=== PATIENT | female | born 1935 ===

== ENCOUNTER 2019-07-26 17:52 | Inpatient (IN) | payer MEDICARE, BC ==
[~2019-07-26] VITALS: Ht 165.1 cm; Wt 63.0 kg
[2019-07-26] MEDS ORDERED: MIRT15TA90 PO (18:32)
[2019-07-26] MEDS ORDERED: FOLI0.8C PO (18:32)
[2019-07-26] MEDS ORDERED: THIA100T57 PO (18:32)
[2019-07-26] MEDS ORDERED: FLUO10CA13 PO (18:32)
[2019-07-26] MEDS ORDERED: AMLO10TA8 PO (18:32)
[2019-07-26] MEDS ORDERED: MULT-237 PO (18:32)
[2019-07-26] MEDS ORDERED: ARIP2TAB35 PO (18:32)
[2019-07-26] MEDS ORDERED: ACET325T21 PO (18:32)
[2019-07-26] MEDS ORDERED: ESCITALOPRAM OX10 MG PO (18:32)
[2019-07-26] MEDS ORDERED: DOCU100C28 PO (18:32)
[2019-07-26] MEDS ORDERED: LOSA100T14 PO (18:32)
[2019-07-26] MEDS ORDERED: CLON0.5T4 PO (18:32)
[2019-07-26 19:35] VITALS: BP 149/60
--- NOTE | 2019-07-26 20:00 | NUR ---
Admission Note with Justification for Admission to [facility] Patient admitted to [facility] for protective oversight for emergency stabilization of acute psychiatric crisis. Pt admitted from: Hospital ER/ [facility] Mode of arrival: EMS Accompanied By: Secure Transport Precipitating behaviors that initiated intake and admission:barricaded self in room, threatening to hang self, paranoid, hallucinations Description of failure of out patient attempts at stabilization in previous setting list behavior and medication trials:med changes Behaviors and assessment findings upon admission: A/O x4, very tearful, denies SI, hyperverbal Plan: Admit for protective oversight for adjustment and stabilization of medications, behaviors and mood. Intense treatment regimen including groups, medication adjustments, therapy, consistent regimen for ADL's, self care, and sleep hygiene. Daily monitoring by Inpatient staff, Psychiatry, and Medical Physician.
[2019-07-26] MEDS ORDERED: ACETAMINOPHEN 325 MG TABLET PO PRN ×2 (21:30→23:30)
--- NOTE | 2019-07-26 21:38 | HP ---
ADMIT DATE: 07/26/2019 IDENTIFYING DATA: The patient is an 83-year-old female referred to us from the Emergency Room at [facility] where she presented from [facility] on account of worsening paranoia, hallucinations and after the patient had barricaded herself in her room and threatened to hang herself. She has been depressed, appears hopeless, helpless, worthless, paranoid, delusional, extremely anxious. She has failed outpatient psychiatric interventions resulting in this referral. We had been contacted from the Emergency Room the day previously as well, but at that time, she had not made threats of self harm even though she was noted to be somewhat psychotic and did not meet criteria for our service at that time. Then, she was returned back to the care home, made the threats of suicide of hanging herself and then went to the ER and then referred to us for psychiatric stabilization. CHIEF COMPLAINT: "I can't stop crying. My birthday is tomorrow. I have been to her for 64 years. He worked for [employer]. He can take care of me. We have 1 son and 1 daughter. My son is a zavaleta, but he is getting along in years and he has his own children and grandchildren and he can't help take care of me. I don't know what to do. HISTORY OF PRESENT ILLNESS: The patient has a history of worsening symptoms of depression, feeling hopeless, helpless, worthless, somewhat paranoid with marked mood lability, anxiety, sleep and appetite changes, worsening paranoia, hallucinations. She made the suicidal statements noted above. She does have a history of mood swings, but no clear past diagnosis of bipolar disorder. PAST PSYCHIATRIC HISTORY: Positive for depression, anxiety, paranoia. MEDICAL HISTORY: Recent urinary tract infection, hypertension, mitral valve stenosis, pacemaker in place, asthma. ALLERGIES: SIMVASTATIN. CURRENT PSYCHOTROPICS: MRAD was reviewed and we have added Zyprexa p.r.n. DIET: Regular. FAMILY HISTORY: Noncontributory. SOCIAL HISTORY: The patient lives at home with her . 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 No alcohol or drug abuse, physical, sexual or elder abuse history is noted. Not known to be a perpetrator. REACTION TO HOSPITALIZATION: The patient accepting of it. ASSETS: Supportive family, stable living at the nursing facility. MENTAL STATUS EXAMINATION: The patient was seen individually at length in the evening of 07/26/2019. She is alert, oriented, reasonably. She is anxious, restless in a wheelchair, constantly moving. Speech coherent, rapid. Abstraction fair, computation impaired, language function intact, attention span short. Mood and affect remains quite labile. She was profusely tearful at times. Denies active suicidal ideation at this time, reasonably oriented. LABORATORY DATA: Reviewed. IMPRESSION: Major depressive disorder, recurrent with psychotic features; anxiety disorder, unspecified; impulse control disorder, status post urinary tract infection. Rest as above. PLAN: Admit to Geropsychiatry Unit at [facility]. I will see the patient daily individually from a psychiatric standpoint. Medical followup per Dr. Lyon. Continue the patient on her current psychotropics. Observe baseline, then make further changes as clinically indicated. Estimated length of stay 10-12 days. DISPOSITION: Plans back to care home in stable condition. ALEKSANDER REESE MD DR: ANUP/esther JOB#: [id number] / [id number]
[2019-07-26] MEDS: clonazePAM 1 MG TABLET PO SCH (21:54)
[2019-07-26] MEDS: MIRTAZAPINE ODT 15 MG TAB.RAPDIS. PO SCH (21:54)
[2019-07-26] MEDS ORDERED: MAGNESIUM HYDROXIDE 2,400 MG/30 ML ORAL.SUSP. PO PRN (23:30)
[2019-07-26] MEDS ORDERED: MAG HYDROX/AL HYDROX/SIMETH 30 ML ORAL.SUSP PO PRN (23:30)
[2019-07-26] MEDS ORDERED: METHYL SALICYLATE/MENTHOL TOPICAL OINTMENT 57GM TUBE. TP PRN (23:30)
[2019-07-27 06:18] VITALS: BP 179/84
[2019-07-27 07:25] LABS: BASO # 0.1 x10^3/uL (0.0-0.2); BASO % 1 % (0-3); EOS # 0.2 x10^3/uL (0.0-0.7); EOS % 3 % (0-3); HEMATOCRIT 47.6 % (36.0-47.0); HEMOGLOBIN 15.6 g/dL (12.0-15.5); LYMPH # 3.8 x10^3/uL (1.0-4.8); LYMPH % 47 % (24-48); MEAN CORPUSCULAR HEMOGLOBIN 30 pg (25-35); MEAN CORPUSCULAR HGB CONC 33 g/dL (31-37); MEAN CORPUSCULAR VOLUME 93 fL (79-100); MONO # 0.5 x10^3/uL (0.0-1.1); MONO % 6 % (0-9); NEUT # 3.5 x10^3uL (1.8-7.7); NEUT % 43 % (31-73); PLATELET COUNT 225 x10^3/uL (140-400); RED BLOOD COUNT 5.14 x10^6/uL (3.50-5.40); RED CELL DISTRIBUTION WIDTH 13.9 % (11.5-14.5)
[2019-07-27 07:40] LABS: ALBUMIN 3.2 g/dL (3.4-5.0); ALBUMIN/GLOBULIN RATIO 0.9 (1.0-1.7); CREATININE 0.9 mg/dL (0.6-1.0); GFR 59.4; MAGNESIUM 1.8 mg/dL (1.8-2.4); POTASSIUM 3.4 mmol/L (3.5-5.1); TOTAL BILIRUBIN 0.5 mg/dL (0.2-1.0); TOTAL PROTEIN 6.8 g/dL (6.4-8.2)
[2019-07-27] MEDS: FLUoxetine HCL 10 MG CAPSULE PO SCH (08:26)
[2019-07-27] MEDS: clonazePAM 1 MG TABLET PO SCH ×3 (08:26→20:07)
[2019-07-27] MEDS: CITALOPRAM 20 MG TABLET. PO SCH (08:27)
[2019-07-27] MEDS: amLODIPine BESYLATE 10 MG TABLET PO SCH (08:27)
[2019-07-27] MEDS: LOSARTAN 50 MG TABLET. PO SCH (08:27)
[2019-07-27] MEDS: ARIPiprazole 2 MG TABLET PO SCH (08:27)
[2019-07-27] MEDS: FOLIC ACID 1 MG TABLET PO SCH (08:28)
[2019-07-27] MEDS: THIAMINE 100 MG TABLET. PO SCH (08:28)
[2019-07-27] MEDS: MULTIVITAMIN with MINERAL TABLET. PO SCH (08:29)
[2019-07-27] MEDS: DOCUSATE SODIUM 100 MG CAPSULE PO SCH ×2 (08:29→20:07)
[2019-07-27] MEDS ORDERED: clonazePAM 1 MG TABLET PO SCH (09:00)
[2019-07-27 12:10] LABS: THYROXINE 6.4 ug/dL (4.5-12.0)
--- NOTE | 2019-07-27 12:27 | NUR ---
Patient is anxious upon medication administration. Patient states she feels like she is rushed to go to the bathroom and that upsets her. Patient is resistive with medications, but compliant. Patient is making some what spastic movements with her arms during this interaction. Patient is not eating well at the noon meal and seems preoccupied. Will continue to monitor.
[2019-07-27 13:53] LABS: AMORPHOUS SEDIMENT,UR PRESENT /HPF; BACTERIA,URINE FEW /HPF (0-FEW); BILIRUBIN,URINE NEG (NEG); CLARITY,URINE TURBID; COLOR,URINE YELLOW; GLUCOSE,URINE NEG (NEG); NITRITE,URINE NEG (NEG); RBC,URINE 0 /HPF (0-2); SQUAMOUS EPITHELIAL CELL,UR OCC /LPF; UROBILINOGEN,URINE 0.2 mg/dL (0.2 mg/dL)
[2019-07-27 16:15] VITALS: BP 114/62
[2019-07-27] MEDS: MIRTAZAPINE ODT 15 MG TAB.RAPDIS. PO SCH (20:07)
[2019-07-27] MEDS ORDERED: MIRTAZAPINE ODT 15 MG TAB.RAPDIS. PO SCH (21:00)
--- NOTE | 2019-07-27 21:58 | PDOC ---
Exam Note: Jay Note: This is a late entry for DOS 07/26/2019. Please also refer to the separate dictated note~for this date of service dictated separately.~Patient seen individually. Discussed the patient with Nursing staff reviewed the chart.~Reviewed interim history and current functioning. Reviewed vital signs,~Labs/ Radiology~and current medications noted below. Continue current treatment with the changes noted in the dictated addendum note Assessment: Vital Signs/I&O: Vital Signs Date Time Temp Pulse Resp B/P (MAP) Pulse Ox O2 Delivery O2 Flow Rate FiO2 07/27/19 16:15 97.2 64 18 114/62 (79) 96 I & O 07/26/19 07/26/19 07/27/19 15:00 23:00 07:00 Intake Total 240 ml Balance 240 ml Labs: Laboratory Tests Test 07/27/19 06:58 07/27/19 13:00 White Blood Count 8.0 x10^3/uL (4.0-11.0) Red Blood Count 5.14 x10^6/uL (3.50-5.40) Hemoglobin 15.6 g/dL (12.0-15.5) H Hematocrit 47.6 % (36.0-47.0) H Mean Corpuscular Volume 93 fL (79-100) Mean Corpuscular Hemoglobin 30 pg (25-35) Mean Corpuscular Hemoglobin Concent 33 g/dL (31-37) Red Cell Distribution Width 13.9 % (11.5-14.5) Platelet Count 225 x10^3/uL (140-400) Neutrophils (%) (Auto) 43 % (31-73) Lymphocytes (%) (Auto) 47 % (24-48) Monocytes (%) (Auto) 6 % (0-9) Eosinophils (%) (Auto) 3 % (0-3) Basophils (%) (Auto) 1 % (0-3) Neutrophils # (Auto) 3.5 x10^3uL (1.8-7.7) Lymphocytes # (Auto) 3.8 x10^3/uL (1.0-4.8) Monocytes # (Auto) 0.5 x10^3/uL (0.0-1.1) Eosinophils # (Auto) 0.2 x10^3/uL (0.0-0.7) Basophils # (Auto) 0.1 x10^3/uL (0.0-0.2) Sodium Level 142 mmol/L (136-145) Potassium Level 3.4 mmol/L (3.5-5.1) L Chloride Level 106 mmol/L (98-107) Carbon Dioxide Level 25 mmol/L (21-32) Anion Gap 11 (6-14) Blood Urea Nitrogen 13 mg/dL (7-20) Creatinine 0.9 mg/dL (0.6-1.0) Estimated GFR (Cockcroft-Gault) 59.4 BUN/Creatinine Ratio 14 (6-20) Glucose Level 94 mg/dL (70-99) Calcium Level 9.0 mg/dL (8.5-10.1) Magnesium Level 1.8 mg/dL (1.8-2.4) Iron Level 79 ug/dL (50-170) Total Iron Binding Capacity 296 ug/dL (250-450) Iron Saturation 27 % (15-34) Total Bilirubin 0.5 mg/dL (0.2-1.0) Aspartate Amino Transferase (AST) 27 U/L (15-37) Alanine Aminotransferase (ALT) 22 U/L (14-59) Alkaline Phosphatase 82 U/L (46-116) Total Protein 6.8 g/dL (6.4-8.2) Albumin 3.2 g/dL (3.4-5.0) L Albumin/Globulin Ratio 0.9 (1.0-1.7) L Triglycerides Level 52 mg/dL (0-150) Cholesterol Level 154 mg/dL (0-200) LDL Cholesterol, Calculated 83 mg/dL (0-100) VLDL Cholesterol, Calculated 10 mg/dL (0-40) Non-HDL Cholesterol Calculated 93 mg/dL (0-129) HDL Cholesterol 61 mg/dL (40-60) H Cholesterol/HDL Ratio 2.0 Thyroxine (T4) 6.4 ug/dL (4.5-12.0) Total Triiodothyronine (TT3) 108 ng/dL (71-180) Urine Collection Type Unknown Urine Color Yellow Urine Clarity Turbid Urine pH 5.5 Urine Specific [place] 1.020 Urine Protein Neg (NEG-TRACE) Urine Glucose (UA) Neg mg/dL (NEG) Urine Ketones (Stick) Neg mg/dL (NEG) Urine Blood Trace (NEG) Urine Nitrite Neg (NEG) Urine Bilirubin Neg (NEG) Urine Urobilinogen Dipstick 0.2 mg/dL (0.2 mg/dL) Urine Leukocyte Esterase Mod (NEG) Urine RBC 0 /HPF (0-2) Urine WBC 11-20 /HPF (0-4) Urine Squamous Epithelial Cells Occ /LPF Urine Transitional Epithelial Cells Occ /LPF Urine Amorphous Sediment Present /HPF Urine Bacteria Few /HPF (0-FEW) Urine Mucus Mod /LPF Current Medications: Meds: Current Medications Medications (Trade) Dose Ordered Sig/Gian Route PRN Reason Start Time Stop Time Status Last Admin Dose Admin Amlodipine Besylate (Norvasc) 10 mg DAILY PO 07/27/19 09:00 07/27/19 08:27 Aripiprazole (Abilify) 2 mg DAILY PO 07/27/19 09:00 07/27/19 08:27 Docusate Sodium (Colace) 100 mg BID PO 07/27/19 09:00 07/27/19 20:07 Fluoxetine HCl (PROzac) 30 mg DAILY PO 07/27/19 09:00 07/27/19 08:26 Citalopram Hydrobromide (CeleXA) 20 mg DAILY PO 07/27/19 09:00 07/27/19 08:27 Folic Acid (Folic Acid) 1 mg DAILY PO 07/27/19 09:00 07/27/19 08:28 Losartan Potassium (Cozaar) 100 mg DAILY PO 07/27/19 09:00 07/27/19 08:27 Multivitamins/ Calcium (Thera-M Plus) 1 tab DAILY PO 07/27/19 09:00 07/27/19 08:29 Thiamine HCl (Vitamin B-1) 100 mg DAILY PO 07/27/19 09:00 07/27/19 08:28 Clonazepam (KlonoPIN) 1 mg TID PO 07/26/19 22:00 07/27/19 20:07 Mirtazapine (Remeron Sherita-Tab) 15 mg QHS PO 07/26/19 22:00 07/27/19 20:07 I have reviewed the current psychotropics carefully including drug interactions. Risk benefit ratio favors no change other than as noted in my dictated progress note. Diagnosis: Problems: (1) Anxiety disorder (2) Major depressive disorder, recurrent episode (3) Urinary tract infection (4) Impulse control disorder ALEKSANDER REESE MD Jul 27, 2019 21:58
--- NOTE | 2019-07-27 23:29 | CONS ---
DATE OF CONSULTATION: 07/27/2019 REASON FOR CONSULTATION: Medical management. HISTORY OF PRESENT ILLNESS: The patient is an 84-year-old female patient, a resident at [facility], who was referred from [facility] Emergency Room on account of worsening paranoid hallucination. The patient apparently has barricaded herself in her room and threatened to hang herself. She has been depressed and appears hopeless, helpless, worthless, paranoid, delusional and extremely anxious. She apparently has failed outpatient psychiatric intervention resulting in referral to this unit for inpatient psychiatric stabilization. PAST PSYCHIATRIC HISTORY: Significant for worsening symptoms of depression. She made some suicidal statement. She does have a history of mood swings, but no clear diagnosis of bipolar disorder. PAST MEDICAL HISTORY: Significant for hypertension, mitral valve stenosis and sick sinus syndrome, bronchial asthma, and recurrent urinary tract infection. PAST SURGICAL HISTORY: Significant for permanent pacemaker placement. ALLERGIES: She is ALLERGIC TO SIMVASTATIN. MEDICATIONS: She is currently on following medications: Amlodipine besylate 10 mg once a day, losartan potassium 100 mg once a day, Tylenol 650 mg every 6 hours, clonazepam 0.5 mg, takes 1 mg 3 times a day, escitalopram oxalate 10 mg daily, fluoxetine for Prozac 30 mg once a day, mirtazapine 15 mg at bedtime, aripiprazole for Abilify 2 mg p.o. daily, Colace 100 mg twice a day, folic acid 1 mg once a day, thiamine 100 mg once a day, multivitamin 1 tablet once a day. FAMILY HISTORY: Noncontributory. SOCIAL HISTORY: Apparently the patient lives at home with her . 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 Does not drink alcohol or use any recreational drugs. REVIEW OF SYSTEMS: As per history of present illness. PHYSICAL EXAMINATION GENERAL: When I saw her, she was sitting in her wheelchair, is extremely anxious, slightly pale, but no jaundice, cyanosis or thyromegaly. No jugular venous distention. No lower limb edema. VITAL SIGNS: Her heart rate was 77, blood pressure was 179/84, temperature was 97.2, respiratory rate was 19 and oxygen saturation was 96%. HEAD, EYES, EARS, NOSE AND THROAT: Showed normocephalic, atraumatic. NECK: Supple. HEART: Showed normal first and second heart sounds. No gallop, rub or murmur. CHEST: Clear to auscultation. No crepitation or rhonchi. ABDOMEN: Distended, soft, nontender. The patient claimed that she is retaining urine. NEUROLOGIC: She is extremely anxious, but without any obvious lateralizing sign. All her cranial nerves are intact. She moves upper extremities without difficulty. She stated that she is unable to walk and she is wheelchair bound. LABORATORY DATA: Showed a serum sodium 142, potassium 3.4, chloride 106, bicarbonate 25, anion gap of 11, BUN 13, creatinine 0.9, estimated GFR was 59 mL per minute. Her glucose was 94, calcium was 9, magnesium was 1.8. Serum iron, TIBC and iron saturation are all consistent with anemia of chronic disease. Her total bilirubin, AST, ALT, alkaline phosphatase were normal. Total protein is 6.8 and albumin 3.2. Serum triglycerides were 52, total cholesterol 154, LDL was 83, VLDL was 10, and HDL cholesterol was 61. The ratio was 2. Her total T4 and total T3 are normal. Her white cell count was 8000, hemoglobin 15.6, hematocrit 47.6, MCV 93, and platelet count 225,000 with a manual differential showed 43% polymorphs, 47% lymphocytes and 6% monocytes. Urinalysis showed the urine was yellow, turbid with a pH of 5.5, specific gravity of 1.020. The urine was negative for protein, glucose, ketones. There was trace amount of blood, negative for nitrite, moderate amount of leukocyte esterase, no rbc's, 11-20 wbc's and few bacteria. IMPRESSION: In summary, this is an 84-year-old female patient, who was admitted on account of worsening paranoia, hallucinations, barricading herself in room and threatened to hang herself. She was admitted with worsening symptoms of depression and she made suicidal statement and was admitted to this unit for inpatient psychiatric stabilization. Medically, she seemed to have labile hypertension, although she is already on losartan and amlodipine. She carries a diagnosis of mitral valve stenosis, bronchial asthma, hypertension, sick sinus syndrome, status post permanent pacemaker. All in all, she seemed to be medically stable. She does have mild hypokalemia that needs to be replenished. I will obviously follow all the lab works that are still pending at the time of this dictation and make any necessary recommendation. Thank you, Dr. Brown for allowing me to participate in the care of this patient. AUDIE ALCARAZ MD DR: ALYX/esther JOB#: [id number] / [id number]
--- NOTE | 2019-07-27 23:52 | NUR ---
Nsg Note: Patient in day room at time of medication administration and assessments. Patient is very anxious, shaky, tearful. Patient was however compliant and cooperative with medications. Needed some queing. No other notable behaviors at this time.
--- NOTE | 2019-07-28 02:30 | NUR ---
While attempting to help toilet pt, pt became very agitated and combative. Pt hitting, kicking, scratching staff. Pt taken to the dayroom. Pt yelling and continuing to be combative. PRN Kelseais administered sublingually. Pt appears to be paranoid, delusional, suspicious. Pt was able to state that she was in a hospital in [place] and that the yr was 2018, However pt also making statements that "there's a [facility]," "people go to [place] and ," "you're trying to kill me." Will continue to monitor.
[2019-07-28 03:06] LABS: HEMOGLOBIN A1C 5.9 % (4.8-5.6)
[2019-07-28 05:57] VITALS: BP 141/67
[2019-07-28] MEDS: DOCUSATE SODIUM 100 MG CAPSULE PO SCH ×2 (08:30→20:47)
[2019-07-28] MEDS: ARIPiprazole 2 MG TABLET PO SCH (08:30)
[2019-07-28] MEDS: FOLIC ACID 1 MG TABLET PO SCH (08:30)
[2019-07-28] MEDS: clonazePAM 1 MG TABLET PO SCH ×3 (08:30→20:47)
[2019-07-28] MEDS: THIAMINE 100 MG TABLET. PO SCH (08:30)
[2019-07-28] MEDS: CITALOPRAM 20 MG TABLET. PO SCH (08:30)
[2019-07-28] MEDS: amLODIPine BESYLATE 10 MG TABLET PO SCH (08:31)
[2019-07-28] MEDS: FLUoxetine HCL 10 MG CAPSULE PO SCH (08:31)
[2019-07-28] MEDS: MULTIVITAMIN with MINERAL TABLET. PO SCH (08:31)
[2019-07-28] MEDS: LOSARTAN 50 MG TABLET. PO SCH (08:31)
--- NOTE | 2019-07-28 15:26 | NUR ---
MELI left msg. for Elsy, Information Systems Architect at [facility], regarding pt. Addendum: 07/29/19 at 1217 by HAILEY GARRISON MELI spoke to Elsy, who shared pt. was only at [facility] for rehab and her actual facility is [facility].
--- NOTE | 2019-07-28 15:35 | NUR ---
Patient is in the dining room for medication and assessment. She is disorganized, sarcastic, but did eventually cooperate. She took her meds whole with some encouragement. She was in the day room for groups, but did not fully participate. Denies pain, denies SI/HI.
[2019-07-28 16:05] VITALS: BP 120/69
--- NOTE | 2019-07-28 20:27 | PDOC ---
Exam Note: Jay Note: Please also refer to the separate dictated note~for this date of service dictated separately.~Patient seen individually. Discussed the patient with Nursing staff reviewed the chart.~Reviewed interim history and current functioning. Reviewed vital signs,~Labs/ Radiology~and current medications noted below. Continue current treatment with the changes noted in the dictated addendum note Assessment: Vital Signs/I&O: Vital Signs Date Time Temp Pulse Resp B/P (MAP) Pulse Ox O2 Delivery O2 Flow Rate FiO2 07/28/19 16:05 97.4 77 18 120/69 (86) 96 I & O 07/27/19 07/27/19 07/28/19 14:59 22:59 06:59 Intake Total 360 ml 460 ml Balance 360 ml 460 ml Current Medications: I have reviewed the current psychotropics carefully including drug interactions. Risk benefit ratio favors no change other than as noted in my dictated progress note. Diagnosis: Problems: (1) Impulse control disorder (2) Anxiety disorder (3) Major depressive disorder, recurrent episode (4) Urinary tract infection ALEKSANDER REESE MD Jul 28, 2019 20:27
[2019-07-28] MEDS: MIRTAZAPINE ODT 15 MG TAB.RAPDIS. PO SCH (20:48)
[2019-07-28] MEDS ORDERED: QUEtiapine 25 MG TABLET. PO SCH (21:00)
[2019-07-28] MEDS ORDERED: clonazePAM 1 MG TABLET PO SCH (23:00)
--- NOTE | 2019-07-28 23:04 | EKG ---
[address] [address] Test Date: 2019-07-28 Test Time: 17:02:26 Pat Name: COURTNEY MUNIZ Department: Room: [address] [place] [address] Gender: F Primary Substance Abuse Counselor: : 1935 Requested By: ALEKSANDER REESE Order Number: [id number] Reading MD: Measurements Intervals [place] Rate: 72 P: 30 MN: 226 QRS: -86 QRSD: 134 T: 40 QT: 426 QTc: 468 Interpretive Statements SINUS RHYTHM PROLONGED MN INTERVAL ABNORMAL LEFT AXIS DEVIATION S1,S2,S3 PATTERN LEFT ANTERIOR FASCICULAR BLOCK RIGHT BUNDLE BRANCH BLOCK BIFASCICULAR BLOCK ABNORMAL ECG RI6.02 No previous ECG available for comparison
--- NOTE | 2019-07-29 01:04 | NUR ---
Nsg Note: Patient in day room at time of medication administration and assessments. Patient was nonsensical but calm, cooperative and compliant. Patient can be snarky at times. Patient received PRN Zyprexa for psychosis with HS meds. No other notable behaviors at this time.
--- NOTE | 2019-07-29 03:38 | PN ---
DATE: 07/27/2019 PSYCHIATRIC PROGRESS NOTE This late entry 07/27/2019 covers the elements not covered in my initial note. SUBJECTIVE: I met with the patient at length in the evening. The patient slept 5 hours previous night. She has been tearful, sad, anxious, constantly moving, suspicious. REVIEW OF SYSTEMS: Ambulation impaired, in wheelchair. No CV, , pulmonary, eye, ENT system symptoms on review. MENTAL STATUS EXAM: Reasonably oriented. Speech coherent, rapid at times. Abstraction fair, computation impaired, language function intact, attention span short. Mood and affect remains somewhat anxious, labile. LABORATORY DATA: Reviewed. IMPRESSION: Major depressive disorder with psychotic features, rule out bipolar disorder, mixed; anxiety disorder, unspecified. PLAN: The patient is on Lexapro 10 mg a day, Prozac 30 mg a day. We will stop the Lexapro. Start Seroquel 25 mg at bedtime. Maintain Klonopin 1 mg t.i.d. and gradually taper. Continue Remeron 15 mg at bedtime, Zyprexa p.r.n. ALEKSANDER REESE MD DR: ANUP/esther JOB#: [id number] / [id number]
[2019-07-29 05:08] VITALS: BP 153/73
[2019-07-29] MEDS: clonazePAM 0.5 MG TABLET PO SCH (08:26)
[2019-07-29] MEDS: FOLIC ACID 1 MG TABLET PO SCH (08:26)
[2019-07-29] MEDS: QUEtiapine 25 MG TABLET. PO SCH ×3 (08:27→20:25)
[2019-07-29] MEDS: ARIPiprazole 2 MG TABLET PO SCH (08:28)
[2019-07-29] MEDS: THIAMINE 100 MG TABLET. PO SCH (08:28)
[2019-07-29] MEDS: FLUoxetine HCL 10 MG CAPSULE PO SCH (08:28)
[2019-07-29] MEDS: DOCUSATE SODIUM 100 MG CAPSULE PO SCH ×2 (08:28→20:25)
[2019-07-29] MEDS: MULTIVITAMIN with MINERAL TABLET. PO SCH (08:29)
[2019-07-29] MEDS: CITALOPRAM 20 MG TABLET. PO SCH (08:29)
[2019-07-29] MEDS: amLODIPine BESYLATE 10 MG TABLET PO SCH (08:29)
[2019-07-29] MEDS: LOSARTAN 50 MG TABLET. PO SCH (08:29)
--- NOTE | 2019-07-29 10:37 | NUR ---
PSYCHOSOCIAL ASSESSMENT ADMISSION DATE: 07/26/19 CONTACT INFORMATION: DPOA/Guardian Contact Name: Imer Morales PERLADEVORAH Contact Address: [place], [place] Contact Phone #: [phone] ETHNIC ORIGIN: UNKNOWN REASONS FOR ADMISSION: Hallucinations, Suicidal ideation, and Suspicious/paranoid ADDITIONAL ADMISSION COMMENTS: Per pt. intake, pt. was having paranoid hallucinations, barricaded self in room, and threatened to hang self. REASON FOR ADMISSION IN PATIENT/FAMILY'S OWN WORDS: Per. pt., "He couldn't take care of me anymore." "In between they found me a place." "My 8th birthday was on [birth year]." Pt. son reports, "She said she took a fall." "Very minor" "Her behavior has been getting worse over the last month." Pt. believes there is a "rat under her bed". She is "hateful and mean" which is "not like her." She had a "UTI" and is worried about "a rash on her right arm and leg". PATIENT/FAMILY EXPECTATIONS FOR ADMISSION: "My hopes are..." "They thought I would here." "My kids found me a place." Per son, "That she could return to ID in the Dementia or Memory Care Unit." LIVING SITUATION: Patient lives with: Assisted Living Contact Name: [place] Contact Address: [place] Contact Phone #: [phone] Contact Fax #: [phone] FAMILY RELATIONS: Marital Status: # of Marriages: 1 Pt. has been to her Imer for 63 years. Pt. currently lives at home. # of Children: 2 Pt. has a son, Imer Wiggins, living in [place] and a daughter, Lesea, living in [place]. [facility] Family Support: Concerned and Cooperative Additional Comments r/t Family: Pt. son Imer requested pt. daughter, Leesa, be contacted for treatment team. [phone] SIGNIFICANT PSYCHIATRIC/MEDICAL HISTORY: Psychiatric/Treatment History: Pt. shared her "MD" gave her "Prozac", because "I was a little nervous." "I went quite a few years before I had a mental breakdown." "1, 2, 3 years." Pt. son reports pt. spent "5 days" at [facility]" in "October" for treatment. He shared she has "anxiety", "depression", and "maybe some form of Dementia" beginning. Pertinent Family History: "My mother" "Her side of the family, there was a mental illness." "That was back before they had a hospital close." According to pt., her mother had treatment for her mental illness multiple times. "Just depression" Pt. son stated pt. sister "was just like that". HISTORICAL DATA: Childhood Environment: "Rough" "I was [place] in [place] and [place] know [place] 1935." Pt. grew up with her mother, father, one sister, and two brothers. Pt. shared they have all . Pt. 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 went on to share this was when you had to "open the door by hand". Pt. 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 service: N Religion background: "Not to go to christian every Sunday." "I pray a lot for my family." Per pt. son, "Mom enjoyed christian." Sexual orientation: Heterosexual Educational Level: Pt. graduated from high school. Past/Present Interests/Hobbies: Pt. enjoyed "sewing" and "knitting". When asked what pt. likes to do now pt. responded, "I'd like to stay alive." Pt. son shared pt. also enjoys "gardening" and the "outdoors". Financial support/resources: [employer]/Pension and Social Security Monthly income: $4000 Person handling finances: Imer Morales Jr. Do you have a history of legal problems: N Cultural considerations: "Not in [place]" SOCIAL RELATIONSHIPS-CURRENT/PAST: Psychiatrist: Dr. Ba PCP: Dr. Ivelisse Aguirre Counselor/Therapist: None Veterans' Administration: None Support Group: None Foreign Clerk/Training Facilitator: None Other relationships: None STRENGTHS & WEAKNESSES: Patient's strengths: Good verbal skills and Approachable Patient's weaknesses: SI statements and paranoid PRELIMINARY PLAN OF TREATMENT: Preliminary plan: Decrease Hallucination/Delusions, Promote Coping Skill, No Suicidal Ideation, Medication Stabilization, and Monitor Med Effects DISCHARGE PLANNING: Discharge planning/disposition: Current Living Arrangement Additional discharge needs identified: Pt. may need a higher level of care at time of discharge. ADDITIONAL INFORMATION: Pt. was able to supply a majority of the information needed for this assessment. Pt. son, Imer, was contacted for verification and clarification of the information. Imer stated when pt. begins to display behaviors to tell her that, "Her son said she was a kind person."
[2019-07-29] MEDS: clonazePAM 1 MG TABLET PO SCH ×2 (14:02→20:25)
[2019-07-29 15:52] VITALS: BP 116/56
--- NOTE | 2019-07-29 15:54 | NUR ---
Nursing note: Pt was in the dining room for morning meds and assessment. She was compliant with taking her meds whole and was cooperative with her assessment. Pt has been in the day room for most of the day and participated in group. Will continue to monitor.
--- NOTE | 2019-07-29 16:15 | NUR ---
ACTIVITY THERAPY ASSESSMENT Completed based on observation and interview. Pt. was in the day room and slightly resistive to speak with CUSTOM DECORATING CONSULTANT for assessment. Pt. had a puzzled look when CUSTOM DECORATING CONSULTANT introduced herself and started asking about leisure interests/ reason for admission. Pt. reluctantly shook CUSTOM DECORATING CONSULTANT's hand for introduction. Pt. reported being tired and having no hobbies. She used to "sew, cook, clean" and Copy Technician's notes added that Pt. enjoyed gardening and being outdoors. 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 When asked about her family and children, she stopped and accused CUSTOM DECORATING CONSULTANT of already knowing all this information. She stated both kids visited over the lunch hour today, one was from [place] and she flew in and the other from his truck. When asked what brought her here, she nonchalantly said she was "waiting for a bullet in my head from you guys." Soon after, explaining that was a joke, "emotional problem" was the real reason and she has had those for a very long time. Pt. went on to say she doesn't get to lay down here and rest enough. She reported she didn't get to brush her teeth, everyone always wants something: wants a picture, forces a snack, give her meds, etc. Overall, Pt. was dissatisfied with how things were going. She is difficult to engage, loses interest quickly. She needed some extra time to process and with quiet speech, staff will need to listen closely. She tends to keep to herself and has limited interests. Initial goal aimed to elevate mood and increase socialization: Pt. will participate in at least five Activity Therapy groups per week.
[2019-07-29] MEDS: MIRTAZAPINE ODT 15 MG TAB.RAPDIS. PO SCH (20:25)
--- NOTE | 2019-07-29 20:50 | PDOC ---
Exam Note: Jay Note: Please also refer to the separate dictated note~for this date of service dictated separately.~Patient seen individually. Discussed the patient with Nursing staff reviewed the chart.~Reviewed interim history and current functioning. Reviewed vital signs,~Labs/ Radiology~and current medications noted below. Continue current treatment with the changes noted in the dictated addendum note Assessment: Vital Signs/I&O: Vital Signs Date Time Temp Pulse Resp B/P (MAP) Pulse Ox O2 Delivery O2 Flow Rate FiO2 07/29/19 15:52 98.2 65 18 116/56 (76) 98 07/29/19 05:08 Room Air I & O 07/28/19 07/28/19 07/29/19 15:00 23:00 07:00 Intake Total 360 ml 120 ml 100 ml Balance 360 ml 120 ml 100 ml Current Medications: Meds: Current Medications Medications (Trade) Dose Ordered Sig/Gian Route PRN Reason Start Time Stop Time Status Last Admin Dose Admin Quetiapine Fumarate (SEROquel) 25 mg QHS PO 07/28/19 21:00 07/29/19 12:10 DC 07/28/19 20:48 Quetiapine Fumarate (SEROquel) 25 mg HS PO 07/29/19 21:00 07/29/19 20:25 Quetiapine Fumarate (SEROquel) 12.5 mg BID94 PO 07/29/19 09:00 07/29/19 16:14 Clonazepam (KlonoPIN) 0.25 mg DAILY08 PO 07/29/19 08:00 07/29/19 08:26 Clonazepam (KlonoPIN) 1 mg BID@1400,2100 PO 07/29/19 14:00 07/29/19 20:25 I have reviewed the current psychotropics carefully including drug interactions. Risk benefit ratio favors no change other than as noted in my dictated progress note. Diagnosis: Problems: (1) Impulse control disorder (2) Anxiety disorder (3) Major depressive disorder, recurrent episode (4) Urinary tract infection ALEKSANDER REESE MD Jul 29, 2019 20:50
[2019-07-29] MEDS ORDERED: MIRTAZAPINE 7.5 MG TABLET. PO SCH (21:00)
[2019-07-29] MEDS ORDERED: traZODone 50 MG TABLET. PO PRN (22:15)
[2019-07-29] MEDS ORDERED: clonazePAM 1 MG TABLET PO SCH (23:00)
--- NOTE | 2019-07-30 | NUR ---
Nsg Note: Patient was in day room at time of medication administration and assessments. Patient was tearful and said she did not want to take medications. Patient began rambling on and on before eventually taking them saying, "I changed my mind. I don't want to ." Issues addressed. No other notable behaviors at this time.
[2019-07-30 05:57] VITALS: BP 98/68
[2019-07-30] MEDS: POTASSIUM CHLORIDE 20 MEQ TABLET.ER. PO SCH ×2 (08:00→08:25)
[2019-07-30 08:08] LABS: HEMATOCRIT 47.5 % (36.0-47.0); HEMOGLOBIN 15.5 g/dL (12.0-15.5); RED BLOOD COUNT 5.12 x10^6/uL (3.50-5.40); RED CELL DISTRIBUTION WIDTH 14.4 % (11.5-14.5); WHITE BLOOD COUNT 7.6 x10^3/uL (4.0-11.0)
[2019-07-30 08:19] LABS: ALBUMIN 3.3 g/dL (3.4-5.0); ALBUMIN/GLOBULIN RATIO 0.9 (1.0-1.7); CALCIUM 9.1 mg/dL (8.5-10.1); CREATININE 0.8 mg/dL (0.6-1.0); POTASSIUM 3.6 mmol/L (3.5-5.1); TOTAL BILIRUBIN 0.5 mg/dL (0.2-1.0); TOTAL PROTEIN 7.1 g/dL (6.4-8.2)
[2019-07-30] MEDS: clonazePAM 0.5 MG TABLET PO SCH ×2 (08:21→20:42)
[2019-07-30] MEDS: FLUoxetine HCL 10 MG CAPSULE PO SCH ×2 (08:21→09:00)
[2019-07-30] MEDS: DOCUSATE SODIUM 100 MG CAPSULE PO SCH ×3 (08:21→20:42)
[2019-07-30] MEDS: FOLIC ACID 1 MG TABLET PO SCH ×2 (08:21→09:00)
[2019-07-30] MEDS: LOSARTAN 50 MG TABLET. PO SCH ×2 (08:23→09:00)
[2019-07-30] MEDS: ARIPiprazole 2 MG TABLET PO SCH (08:24)
[2019-07-30] MEDS: THIAMINE 100 MG TABLET. PO SCH ×2 (08:24→09:00)
[2019-07-30] MEDS: MULTIVITAMIN with MINERAL TABLET. PO SCH ×2 (08:24→09:00)
[2019-07-30] MEDS: QUEtiapine 25 MG TABLET. PO SCH ×3 (08:24→20:42)
[2019-07-30 08:26] VITALS: BP 122/57
[2019-07-30] MEDS: amLODIPine BESYLATE 10 MG TABLET PO SCH ×2 (08:30→09:00)
--- NOTE | 2019-07-30 10:58 | NUR ---
Nursing note: Pt in dining room this morning for meds and assessment. She was resistive and spit some of her meds out in her cup of water saying "I don't like the taste of that". Abilify, klonopin, and seroquel were crushed and mixed with a bite of pudding that she was compliant in taking. Pt has had no other notable behaviors this shift. Will continue to monitor.
[2019-07-30] MEDS: clonazePAM 1 MG TABLET PO SCH (12:39)
[2019-07-30 16:08] VITALS: BP 137/78
--- NOTE | 2019-07-30 19:35 | PN ---
DATE: 07/28/2019 PSYCHIATRIC PROGRESS NOTE This late entry July 28 covers the elements not covered in my initial note. SUBJECTIVE: I met with the patient evening of July 28. Per report from nursing staff, the patient was snarky, irritable and combative the previous night, beating up on staff. She slept 3-1/4 hours, anxious, restless, constantly moving, abrasive. REVIEW OF SYSTEMS: Ambulation impaired, in wheelchair. No CV, , pulmonary, eye, ENT system symptoms on review. Reliability fair. MENTAL STATUS EXAM: Oriented reasonably. Speech coherent, rapid at times. Abstraction fair. Computation impaired. Language function intact. Attention span short. Mood and affect somewhat anxious, labile, but improved. LABORATORY DATA: Reviewed. IMPRESSION: Unchanged from initial note. PLAN: We will go ahead and stop the Celexa that was substituted for Lexapro, maintain Prozac 30 mg a day, reduce Klonopin from 1 mg t.i.d. down to 0.5 mg in the morning and 1 mg b.i.d., increase Seroquel to 12.5 mg 9 a.m., 1:00 p.m., maintain 25 mg at bedtime, continue Remeron at current dosage. Rest unchanged for now. MAN Aimee REESE MD DR: ANUP/esther JOB#: [id number] / [id number]
--- NOTE | 2019-07-30 20:05 | PN ---
DATE: 07/29/2019 PSYCHIATRIC PROGRESS NOTE This late entry July 29 covers the elements not covered in my initial note. SUBJECTIVE: I met with the patient evening of July 29. Per PAYAM Calderón, the patient slept 7-1/4 hours previous night. She is compliant with meds in the morning, less sarcastic. Her son and daughter visited. REVIEW OF SYSTEMS: Ambulation impaired, in wheelchair. No CV, , pulmonary, eye system symptoms on review. MENTAL STATUS EXAM: Reasonably oriented. Speech is coherent, less pressured. Abstraction fair. Computation impaired. Language function intact. Attention span short. Mood and affect remain somewhat anxious, labile. LABORATORY DATA: Reviewed. IMPRESSION: Unchanged from initial note. PLAN: No change from initial note. MAN Aimee REESE MD DR: ANUP/esther JOB#: [id number] / [id number]
--- NOTE | 2019-07-30 20:40 | PDOC ---
Exam Note: Jay Note: Please also refer to the separate dictated note~for this date of service dictated separately.~Patient seen individually. Discussed the patient with Nursing staff reviewed the chart.~Reviewed interim history and current functioning. Reviewed vital signs,~Labs/ Radiology~and current medications noted below. Continue current treatment with the changes noted in the dictated addendum note Assessment: Vital Signs/I&O: Vital Signs Date Time Temp Pulse Resp B/P (MAP) Pulse Ox O2 Delivery O2 Flow Rate FiO2 07/30/19 16:08 97.6 85 14 137/78 (97) 98 07/29/19 05:08 Room Air I & O 07/29/19 07/29/19 07/30/19 15:00 23:00 07:00 Intake Total 480 ml 120 ml 120 ml Balance 480 ml 120 ml 120 ml Labs: Laboratory Tests Test 07/30/19 06:56 White Blood Count 7.6 x10^3/uL (4.0-11.0) Red Blood Count 5.12 x10^6/uL (3.50-5.40) Hemoglobin 15.5 g/dL (12.0-15.5) Hematocrit 47.5 % (36.0-47.0) H Mean Corpuscular Volume 93 fL (79-100) Mean Corpuscular Hemoglobin 30 pg (25-35) Mean Corpuscular Hemoglobin Concent 33 g/dL (31-37) Red Cell Distribution Width 14.4 % (11.5-14.5) Platelet Count 242 x10^3/uL (140-400) Sodium Level 145 mmol/L (136-145) Potassium Level 3.6 mmol/L (3.5-5.1) Chloride Level 107 mmol/L (98-107) Carbon Dioxide Level 29 mmol/L (21-32) Anion Gap 9 (6-14) Blood Urea Nitrogen 19 mg/dL (7-20) Creatinine 0.8 mg/dL (0.6-1.0) Estimated GFR (Cockcroft-Gault) 68.0 BUN/Creatinine Ratio 24 (6-20) H Glucose Level 109 mg/dL (70-99) H Calcium Level 9.1 mg/dL (8.5-10.1) Total Bilirubin 0.5 mg/dL (0.2-1.0) Aspartate Amino Transferase (AST) 24 U/L (15-37) Alanine Aminotransferase (ALT) 22 U/L (14-59) Alkaline Phosphatase 87 U/L (46-116) Total Protein 7.1 g/dL (6.4-8.2) Albumin 3.3 g/dL (3.4-5.0) L Albumin/Globulin Ratio 0.9 (1.0-1.7) L Current Medications: Meds: Current Medications Medications (Trade) Dose Ordered Sig/Gian Route PRN Reason Start Time Stop Time Status Last Admin Dose Admin Quetiapine Fumarate (SEROquel) 25 mg HS PO 07/29/19 21:00 07/29/19 20:25 I have reviewed the current psychotropics carefully including drug interactions. Risk benefit ratio favors no change other than as noted in my dictated progress note. Diagnosis: Problems: (1) Impulse control disorder (2) Anxiety disorder (3) Major depressive disorder, recurrent episode (4) Urinary tract infection ALEKSANDER REESE MD Jul 30, 2019 20:40
[2019-07-30] MEDS: LACTOBACILLUS RHAMNOSUS GG 1 CAPSULE. PO SCH (20:42)
[2019-07-30] MEDS: traZODone 50 MG TABLET. PO SCH (20:42)
[2019-07-30] MEDS: MIRTAZAPINE ODT 15 MG TAB.RAPDIS. PO SCH (20:42)
--- NOTE | 2019-07-31 02:45 | NUR ---
Last evening pt was quiet and cooperative in day room. Meds were taken whole without difficulty. No behaviors this shift.
--- NOTE | 2019-07-31 03:33 | PN ---
DATE: 07/29/2019 PSYCHIATRIC PROGRESS NOTE This late entry 07/29/2019 covers elements not covered in my initial note. SUBJECTIVE: I met with the patient evening of 07/29/2019 DICTATION ENDS HERE. MAN Aimee REESE MD DR: ANUP/esther JOB#: [id number] / [id number]
[2019-07-31] MEDS: levoFLOXacin 250 MG TABLET PO SCH (05:30)
[2019-07-31 06:05] VITALS: BP 138/89
[2019-07-31] MEDS: LACTOBACILLUS RHAMNOSUS GG 1 CAPSULE. PO SCH ×2 (08:13→19:39)
[2019-07-31] MEDS: LOSARTAN 50 MG TABLET. PO SCH (08:14)
[2019-07-31] MEDS: QUEtiapine 25 MG TABLET. PO SCH ×3 (08:14→19:41)
[2019-07-31] MEDS: clonazePAM 0.5 MG TABLET PO SCH ×2 (08:15→19:39)
[2019-07-31] MEDS: MULTIVITAMIN with MINERAL TABLET. PO SCH (08:15)
[2019-07-31] MEDS: DOCUSATE SODIUM 100 MG CAPSULE PO SCH ×2 (08:15→19:39)
[2019-07-31] MEDS: POTASSIUM CHLORIDE 20 MEQ TABLET.ER. PO SCH (08:16)
[2019-07-31] MEDS: amLODIPine BESYLATE 10 MG TABLET PO SCH (08:17)
[2019-07-31] MEDS: THIAMINE 100 MG TABLET. PO SCH (08:17)
[2019-07-31] MEDS: FOLIC ACID 1 MG TABLET PO SCH (08:17)
[2019-07-31] MEDS: FLUoxetine HCL 10 MG CAPSULE PO SCH (08:17)
--- NOTE | 2019-07-31 09:56 | NUR ---
WEEKLY ACTIVITY THERAPY NOTE Date of Admission: 07/26/2019 Date of AT Assessment: 07/29/2019 Goal aimed: to elevate mood and increase socialization Initial Goal: Pt. will participate in at least five Activity Therapy groups per week. Weekly progress towards goal: five groups since admission Group participation level: three minimal, two full Weekly highlights: horseshoes activity- first full engagement, singing gospel songs Sunday Behaviors observed: disorganized, restless/wandering, paranoid, around others but keeps to herself, reported being tired and wanting more rest Plan: no change to goal Beneficial adaptations: gross motor activities
--- NOTE | 2019-07-31 12:15 | NUR ---
MELI spoke to pt. son, Imer, to inform him pt. will be getting psychiatric testing done. Imer did agree to the testing. SW also shared pt. will need follow up psychiatric services and suggested perhaps Dr. Mccullough would accept new pt. Imer reports he has already tried to have pt. see Dr. Mccullough and that the visit did not go well. He feels they have already tried this approach and it did not work.
--- NOTE | 2019-07-31 12:22 | NUR ---
WEEKLY NOTE Pt. daughter, Leesa, was contacted for treatment team. Pt. has been eating 50% of meals and sleeping an average of 5 hours. Pt. has been confused, disorganized, snarky, and resistive. Pt. is tearful and delusional at times. Pt. daughter shared, "She has always had a great deal of difficulty dealing with stress." Pt. is inconsistent with medications and cares. Pt. UTI is currently being treated. Pt. will have a consult for neurology and psychiatric testing.
--- NOTE | 2019-07-31 12:46 | NUR ---
SW spoke to Glo, Nurse at [facility], regarding pt. update.
--- NOTE | 2019-07-31 13:32 | NUR ---
Nursing note: Pt was in dining room for morning meds and assessment. She was compliant with taking her meds. She took a few of them whole but said she was having a hard time swallowing them, so the rest were crushed and mixed with a bite of pudding. She stated that she wasn't doing well today, but wouldn't tell this nurse any further details about that statement. She denied SI and hallucinations this morning during her assessment. PT worked with her later on in the morning and it was reported to this nurse that pt had told PT "I wish I were already". She is currently in the day room. Will continue to monitor.
[2019-07-31] MEDS ORDERED: clonazePAM 1 MG TABLET PO SCH (14:00)
--- NOTE | 2019-07-31 15:22 | RAD ---
CT HEAD WITHOUT CONTRAST 07/31/2019 11:30 AM Indication: Altered mental status Comparison: None available Procedure: Multidetector CT imaging of the head was performed without the administration of contrast. Findings: No evidence of acute intracranial hemorrhage is identified. No evidence of subacute territorial infarct is seen. No abnormal extra-axial fluid collections are seen. Mild senescent atrophic changes are seen for patient age. No acute osseous changes are seen. IMPRESSION: No evidence of acute intracranial abnormality CT DOSING PQRS STATEMENT: One or more of the following individualized dose reduction techniques were utilized for this examination: 1. Automated exposure control 2. Adjustment of the mA and/or kV according to patient size 3. Use of iterative reconstruction technique Electronically signed by: Suleiman Miranda MD (07/31/2019 3:19 PM) [id number]
[2019-07-31 16:44] VITALS: BP 139/53
[2019-07-31] MEDS: MIRTAZAPINE ODT 15 MG TAB.RAPDIS. PO SCH (19:40)
[2019-07-31] MEDS: traZODone 50 MG TABLET. PO SCH (19:40)
--- NOTE | 2019-07-31 20:41 | PDOC ---
Exam Note: Jay Note: Please also refer to the separate dictated note~for this date of service dictated separately.~Patient seen individually. Discussed the patient with Nursing staff reviewed the chart.~Reviewed interim history and current functioning. Reviewed vital signs,~Labs/ Radiology~and current medications noted below. Continue current treatment with the changes noted in the dictated addendum note Assessment: Vital Signs/I&O: Vital Signs Date Time Temp Pulse Resp B/P (MAP) Pulse Ox O2 Delivery O2 Flow Rate FiO2 07/31/19 16:44 97.4 83 16 139/53 (81) 96 07/31/19 06:05 Room Air I & O 07/30/19 07/30/19 07/31/19 15:00 23:00 07:00 Intake Total 600 ml 240 ml 240 ml Balance 600 ml 240 ml 240 ml Current Medications: Meds: Current Medications Medications (Trade) Dose Ordered Sig/Gian Route PRN Reason Start Time Stop Time Status Last Admin Dose Admin Trazodone HCl (Desyrel) 50 mg QHS PO 07/30/19 21:00 07/31/19 19:40 Clonazepam (KlonoPIN) 1 mg 1400 PO 07/31/19 14:00 07/31/19 14:17 Clonazepam (KlonoPIN) 0.5 mg 2100 PO 07/30/19 21:00 07/31/19 19:39 Levofloxacin (Levaquin) 250 mg DAILY06 PO 07/31/19 06:00 07/31/19 05:30 Lactobacillus Rhamnosus (Culturelle) 1 cap BID PO 07/30/19 21:00 07/31/19 19:39 I have reviewed the current psychotropics carefully including drug interactions. Risk benefit ratio favors no change other than as noted in my dictated progress note. Diagnosis: Problems: (1) Impulse control disorder (2) Anxiety disorder (3) Major depressive disorder, recurrent episode (4) Urinary tract infection ALEKSANDER REESE MD Jul 31, 2019 20:41
--- NOTE | 2019-08-01 02:12 | NUR ---
Last evening pt was slouched in WC in day room she had some somatic complaints with stable vital signs. She said she was very tired and just wanted to go to bed. Meds taken whole without difficulty. After meds pt taken to bed and quickly went to sleep. Shower deferred due to pt fatigue.
[2019-08-01] MEDS: levoFLOXacin 250 MG TABLET PO SCH (06:00)
[2019-08-01 06:20] VITALS: BP 144/73
[2019-08-01 07:43] LABS: CALCIUM 8.6 mg/dL (8.5-10.1); CREATININE 1.1 mg/dL (0.6-1.0); GFR 47.1; POTASSIUM 3.7 mmol/L (3.5-5.1)
[2019-08-01 08:00] VITALS: BP 103/57
[2019-08-01] MEDS: clonazePAM 0.5 MG TABLET PO SCH (08:00)
[2019-08-01] MEDS ORDERED: ONDANSETRON ODT 4 MG TAB.RAPDIS PO PRN (08:00)
[2019-08-01] MEDS: POTASSIUM CHLORIDE 20 MEQ TABLET.ER. PO SCH (08:00)
[2019-08-01] MEDS ORDERED: METOCLOPRAMIDE HCL 10 MG/10 ML SOLUTION. PO PRN (08:30)
[2019-08-01] MEDS ORDERED: ONDANSETRON ODT 4 MG TAB.RAPDIS PO ONE (08:45)
[2019-08-01] MEDS: LACTOBACILLUS RHAMNOSUS GG 1 CAPSULE. PO SCH (09:00)
[2019-08-01] MEDS: LOSARTAN 50 MG TABLET. PO SCH (09:00)
[2019-08-01] MEDS: amLODIPine BESYLATE 10 MG TABLET PO SCH (09:00)
[2019-08-01] MEDS: QUEtiapine 25 MG TABLET. PO SCH (09:00)
[2019-08-01] MEDS: THIAMINE 100 MG TABLET. PO SCH (09:00)
[2019-08-01] MEDS: DOCUSATE SODIUM 100 MG CAPSULE PO SCH (09:00)
[2019-08-01] MEDS: FLUoxetine HCL 10 MG CAPSULE PO SCH (09:00)
[2019-08-01] MEDS: FOLIC ACID 1 MG TABLET PO SCH (09:00)
[2019-08-01] MEDS: MULTIVITAMIN with MINERAL TABLET. PO SCH (09:00)
[2019-08-01 12:16] LABS: BASO % 0 % (0-3); EOS % 0 % (0-3); HEMATOCRIT 46.8 % (36.0-47.0); HEMOGLOBIN 15.4 g/dL (12.0-15.5); LYMPH # 2.3 x10^3/uL (1.0-4.8); LYMPH % 14 % (24-48); MEAN CORPUSCULAR HEMOGLOBIN 30 pg (25-35); MEAN CORPUSCULAR HGB CONC 33 g/dL (31-37); MEAN CORPUSCULAR VOLUME 93 fL (79-100); MONO # 0.9 x10^3/uL (0.0-1.1); MONO % 5 % (0-9); NEUT # 13.4 x10^3uL (1.8-7.7); NEUT % 81 % (31-73); PLATELET COUNT 249 x10^3/uL (140-400); RED BLOOD COUNT 5.05 x10^6/uL (3.50-5.40); RED CELL DISTRIBUTION WIDTH 14.5 % (11.5-14.5); WHITE BLOOD COUNT 16.6 x10^3/uL (4.0-11.0)
[2019-08-01 12:30] VITALS: BP 76/38
[2019-08-01] MEDS ORDERED: MAG-95 PO (12:44)
[2019-08-01] MEDS ORDERED: LACT1CAP19 PO (12:44)
[2019-08-01] MEDS ORDERED: METH57CR17 TP (12:45)
[2019-08-01] MEDS ORDERED: MAGN2400 PO (12:45)
[2019-08-01] MEDS ORDERED: POTA20TA82 PO (12:46)
[2019-08-01] MEDS ORDERED: OLAN2.5T3 PO (12:46)
[2019-08-01] MEDS ORDERED: QUET25TA5 PO ×2 (12:47)
[2019-08-01] MEDS ORDERED: CLON0.5T4 PO ×2 (12:48→12:49)
[2019-08-01] MEDS ORDERED: LEVO500T59 PO (12:49)
[2019-08-01] MEDS ORDERED: TRAZ-120 PO ×2 (12:50→12:51)
[2019-08-01 12:52] LABS: % BANDS 14 % (0-9); % LYMPHS 13 % (24-48); % MONOS 7 % (0-10); % SEGS 66 % (35-66)
[2019-08-01 12:53] LABS: PLT ESTIMATE ADEQUATE (ADEQUATE)
--- NOTE | 2019-08-01 13:08 | PN ---
DATE: 07/30/2019 This late entry 07/30 covers elements not covered in my initial note. SUBJECTIVE: I met with the patient in the evening of 07/30. Per PAYAM Carpio, the patient slept 5-1/2 hours previous night. She was resistive to meds in the morning, somewhat snarky per nursing reports, spit her meds out in the morning. REVIEW OF SYSTEMS: Ambulation impaired, in wheelchair. No CV, , pulmonary, eye, ENT system symptoms on review. Paranoid, somewhat confused at times. MENTAL STATUS EXAM: Oriented to herself and situation. Speech has some latency, coherent, often responses monosyllabic. Abstraction fair, computation impaired, language function intact, attention span short. Mood and affect remains labile. LABORATORY DATA: Reviewed. IMPRESSION: Psychotic disorder, unspecified; urinary tract infection; major depressive disorder with psychotic features. Rest unchanged. PLAN: The patient is currently on Abilify 2 mg a day together with Seroquel 12.5 b.i.d. and 25 at bedtime and we will stop the Abilify to avoid using 2 atypical antipsychotics. Maintain Prozac, Remeron, Zyprexa as p.r.n. Klonopin is 1 mg b.i.d., will reduce to 0.5 mg b.i.d. and then consider further dose reduction. The UTI certainly compounding her psychosis, restlessness and overall mental status changes and we will have to reassess once the UTI results. Labs reviewed. Impression unchanged from initial note. Plan, no change from initial note. ALEKSANDER REESE MD DR: ANUP/esther JOB#: [id number] / [id number]
--- NOTE | 2019-08-01 13:15 | NUR ---
Pt has been very lethargic this morning. Pt drowsy, refusing to eat or drink for breakfast and lunch. AM medications held d/t change in pt's condition. Pt had emesis x1 this am. Pt had loose stools x2 this morning. Pt's WBC elevated at 16.6. VS at 1230: manual BP of 76/38, 95HR. Pt afebrile. Dr. Lyon notified. Received orders to transfer pt to ICU Bed 2. Report called to PAYAM Ragsdale. Imer AKHTAR notified of transfer.
--- NOTE | 2019-08-01 13:25 | NUR ---
Transition Record was faxed to follow-up provider with the following elements: Reason for admission, procedures, tests, principal diagnosis, pending studies, patient instructions, 09/04 contact information for unit, phone number to obtain pending test results, plan for follow-up care, physician follow-up, advanced directive information, and medication list with dose, duration and instructions. This information was included in the following documents: History and physical, lab results, study results, progress notes, social work planning form, DC instruction form, patient visit summary, and medication reconciliation form. Date & time record faxed:08/01/19 [id number] Record faxed to: ICU Record discussed with/ report given to: PAYAM Ragsdale
[2019-08-01] MEDS ORDERED: PIP/TAZO PER PHARMACY MC PRN (14:45)
[2019-08-01] MEDS ORDERED: VANCOMYCIN PER PHARMACY MC PRN (14:45)
--- NOTE | 2019-08-01 19:29 | PN ---
DATE: 07/31/2019 PSYCHIATRIC PROGRESS NOTE This late entry 07/31/2019 covers elements not covered in my initial note. SUBJECTIVE: I met with the patient in the evening and staffed at a treatment team meeting with the entire team in the morning and the patient's daughter, Leesa, attended that lengthy treatment team meeting. Appetite 50%, sleeping average 5 hours. Leesa remarked how paranoid, psychotic the patient appeared during the daughter's visit with the patient a couple of days back. The patient felt cameras were recording her. There were mice and rats in the hallways, Mexicans were locked in. She does have a UTI and even otherwise is depressed, psychotic and certainly the UTI could explain some part of this. We will do an organic workup including CT head and Neurology consult with Dr. Weinstein for any further recommendations. The daughter described a history for 4 or 5 years of worsening depression, delusions, paranoia and great difficulty handling stressful situation. Brother from an accident. The patient's mother had a diagnosis of bipolar disorder, treated on ECT. Sister was depressed and all of this is fairly pertinent family history. REVIEW OF SYSTEMS: Ambulation impaired, in wheelchair. No CV, , pulmonary, eye system symptoms on review. MENTAL STATUS EXAMINATION: The patient is oriented to herself, at times situation. Speech has some latency, coherent. Abstraction fair, computation impaired, language function intact, attention span short. Mood and affect labile. LABORATORY DATA: Reviewed. 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 Rest unchanged. PLAN: Continue Prozac, Remeron, Zyprexa. Treat the UTI. Maintain Seroquel scheduled Zyprexa as p.r.n. Klonopin will be tapered. Continue trazodone. Abilify was stopped as she is on the Seroquel. Adjust further as clinically indicated. We will have to make final decisions once the UTI resolves. MAN Aimee REESE MD DR: ANUP/esther JOB#: [id number] / [id number]
--- NOTE | 2019-08-01 20:38 | PDOC ---
Exam Note: Jay Note: Please also refer to the separate dictated note~for this date of service dictated separately.~Patient seen individually. Discussed the patient with Nursing staff reviewed the chart.~Reviewed interim history and current functioning. Reviewed vital signs,~Labs/ Radiology~and current medications noted below. Continue current treatment with the changes noted in the dictated addendum note Assessment: Vital Signs/I&O: Vital Signs Date Time Temp Pulse Resp B/P (MAP) Pulse Ox O2 Delivery O2 Flow Rate FiO2 08/01/19 12:30 98.4 95 18 76/38 (51) 94 08/01/19 06:20 Room Air I & O 07/31/19 07/31/19 08/01/19 15:00 23:00 07:00 Intake Total 960 ml 240 ml 240 ml Balance 960 ml 240 ml 240 ml Labs: Laboratory Tests Test 08/01/19 07:17 White Blood Count 16.6 x10^3/uL (4.0-11.0) H Red Blood Count 5.05 x10^6/uL (3.50-5.40) Hemoglobin 15.4 g/dL (12.0-15.5) Hematocrit 46.8 % (36.0-47.0) Mean Corpuscular Volume 93 fL (79-100) Mean Corpuscular Hemoglobin 30 pg (25-35) Mean Corpuscular Hemoglobin Concent 33 g/dL (31-37) Red Cell Distribution Width 14.5 % (11.5-14.5) Platelet Count 249 x10^3/uL (140-400) Neutrophils (%) (Auto) 81 % (31-73) H Lymphocytes (%) (Auto) 14 % (24-48) L Monocytes (%) (Auto) 5 % (0-9) Eosinophils (%) (Auto) 0 % (0-3) Basophils (%) (Auto) 0 % (0-3) Neutrophils # (Auto) 13.4 x10^3uL (1.8-7.7) H Lymphocytes # (Auto) 2.3 x10^3/uL (1.0-4.8) Monocytes # (Auto) 0.9 x10^3/uL (0.0-1.1) Eosinophils # (Auto) 0.0 x10^3/uL (0.0-0.7) Basophils # (Auto) 0.0 x10^3/uL (0.0-0.2) Segmented Neutrophils % 66 % (35-66) Band Neutrophils % 14 % (0-9) H Lymphocytes % 13 % (24-48) L Monocytes % 7 % (0-10) Platelet Estimate Adequate (ADEQUATE) Sodium Level 143 mmol/L (136-145) Potassium Level 3.7 mmol/L (3.5-5.1) Chloride Level 105 mmol/L (98-107) Carbon Dioxide Level 28 mmol/L (21-32) Anion Gap 10 (6-14) Blood Urea Nitrogen 22 mg/dL (7-20) H Creatinine 1.1 mg/dL (0.6-1.0) H Estimated GFR (Cockcroft-Gault) 47.1 Glucose Level 159 mg/dL (70-99) H Calcium Level 8.6 mg/dL (8.5-10.1) Current Medications: Meds: Current Medications Medications (Trade) Dose Ordered Sig/Gian Route PRN Reason Start Time Stop Time Status Last Admin Dose Admin Ondansetron HCl (Zofran Odt) 4 mg 1X ONCE PO 08/01/19 08:45 08/01/19 08:46 DC 08/01/19 09:11 I have reviewed the current psychotropics carefully including drug interactions. Risk benefit ratio favors no change other than as noted in my dictated progress note. Diagnosis: Problems: (1) Impulse control disorder (2) Anxiety disorder (3) Major depressive disorder, recurrent episode (4) Urinary tract infection ALEKSANDER REESE MD Aug 01, 2019 20:38
--- NOTE | 2019-08-03 13:33 | DS ---
DATE OF DISCHARGE: 08/01/2019 PSYCHIATRIC PROGRESS NOTE This late entry 08/01 covers elements not covered in my initial note. REASON FOR ADMISSION: Please refer to the admission history for details. Briefly, the patient is an 83-year-old female referred to us from [facility] Emergency Room where she presented from [facility] on account of worsening paranoia, hallucinations after she barricaded herself in her room and was threatening to hang herself. Behaviors had been previously quite labile, agitated, disruptive, but she did not meet inpatient psychiatric criteria. Refused admission only to go back, threatened to hang herself, back to the ER and then referred to us for inpatient psychiatric stabilization. SIGNIFICANT FINDINGS AND CLINICAL COURSE: Following admission, the patient was seen daily individually by myself from a psychiatric standpoint, medical followup with Dr. Lyon. A careful review of the patient's history was reflective of psychotic disorder versus major depressive disorder with psychotic features versus bipolar mixed with psychotic features. She did have a UTI and was treated on Levaquin and adjustments were made in her psychotropics. She seemed to be doing better on a combination of Prozac 30 mg a day, Remeron 15 mg at bedtime, Zyprexa p.r.n., Seroquel 25 mg at bedtime and 12.5 mg 0900 and 1600. Klonopin 0.25 mg daily in the morning, had been tapered to this dosage and she was mg 1 mg at 1400 and 0.5 mg at bedtime. Trazodone 50 mg at bedtime, may repeat x 1. She was making some improvement in her mood, tiredness, interactions, paranoia, but at this stage, she developed urosepsis and was transferred to the ICU per Dr. Lyon. REVIEW OF SYSTEMS: Prior to discharge on 08/01, ambulation impaired, in wheelchair. No CV, , pulmonary, eye system symptoms on review. MENTAL STATUS EXAM: The patient is oriented to herself and situation. Speech is coherent, can be little pressured at times. Abstraction fair, computation impaired, language function intact, attention span short. Mood and affect remains somewhat anxious, labile. LABORATORY DATA: Reviewed. IMPRESSION: Psychotic disorder, unspecified versus major depressive disorder with psychotic features; bipolar disorder, mixed with psychotic features; urinary tract infection, sepsis. Rest unchanged from admission. DISCHARGE MEDICATIONS: Please refer to MRAD. DISCHARGE INSTRUCTIONS: Psychiatric and medical followup on . MAN Aimee REESE MD DR: ANUP/esther JOB#: [id number] / [id number]
== END 2019-08-01 13:29 | disposition short-term general hospital (02) | DRG 885 ==
LOC: GEROPSY 19:56
PROVIDERS: ADMIT Psychiatry & Neurology Psychiatry; ATTEND Psychiatry & Neurology Psychiatry
DX: F33.3 Major depressive disorder, recurrent, severe with psychotic symptoms (principal); N39.0 Urinary tract infection, site not specified; F41.9 Anxiety disorder, unspecified; F63.9 Impulse disorder, unspecified; E87.6 Hypokalemia; I05.0 Rheumatic mitral stenosis; I10 Essential (primary) hypertension; I49.5 Sick sinus syndrome; J45.909 Unspecified asthma, uncomplicated; Z79.899 Other long term (current) drug therapy; Z87.440 Personal history of urinary (tract) infections; Z95.0 Presence of cardiac pacemaker
CPT/HCPCS: 36415; 70450; 80048; 80053; 80061; 81001; 82306; 82607; 83036; 83540; 83550; 83735; 84436; 84480; 85007; 85025; 85027; 86592; 87086; 87186; 93005; Q0162; 97110; 97116

== ENCOUNTER 2019-08-01 13:44 | Inpatient (IN) | payer MEDICARE, BC ==
[2019-08-01] VITALS (10 sets, daily range): BP systolic 89–133; BP diastolic 28–74
[~2019-08-01] VITALS: Ht 165.1 cm; Wt 69.0 kg
[~2019-08-01 13:44] MED LIST: ACET325T21 PO; AMLO10TA8 PO; ARIP2TAB35 PO; CLON0.5T4 PO; DOCU100C28 PO; ESCITALOPRAM OX10 MG PO; FLUO10CA13 PO; FOLI0.8C PO; LACT1CAP19 PO; LEVO500T59 PO; LOSA100T14 PO; MAG-95 PO; MAGN2400 PO; METH57CR17 TP; MIRT15TA90 PO; MULT-237 PO; OLAN2.5T3 PO; POTA20TA82 PO; QUET25TA5 PO; THIA100T57 PO; TRAZ-120 PO
[2019-08-01] MEDS ORDERED: IV NORMAL SALINE 1,000ML 1,000 ML IV SCH (14:16)
[2019-08-01] MEDS ORDERED: ONDANSETRON PF 4 MG/2 ML VIAL. IV PRN (14:30)
[2019-08-01] MEDS ORDERED: MAG HYDROX/AL HYDROX/SIMETH 30 ML ORAL.SUSP PO PRN (14:45)
[2019-08-01] MEDS ORDERED: traZODone 50 MG TABLET. PO PRN (14:45)
[2019-08-01] MEDS: POTASSIUM CL 20MEQ D5-0.45NACL 1,000 ML IV SCH ×2 (14:45→15:40)
[2019-08-01] MEDS ORDERED: PIP/TAZO PER PHARMACY MC PRN (15:00)
[2019-08-01] MEDS ORDERED: VANCOMYCIN PER PHARMACY MC PRN (15:00)
--- NOTE | 2019-08-01 15:13 | HP ---
ADMIT DATE: 08/01/2019 HISTORY OF PRESENT ILLNESS: The patient is an 84-year-old female patient who was transferred from [facility] where she was noted by the nursing staff to be extremely lethargic, drowsy, refusing to eat or drink for breakfast and lunch. She was also noted to have 1 episode of emesis, had loose stools time 2 this morning. Her white cell count was elevated at 16.6. Her blood pressure was low at 76/40 and therefore, the patient was transferred to the ICU for possible septic versus hypovolemic shock. The patient herself is demented, does not give any useful information. PAST MEDICAL HISTORY: Significant for hypertension, mitral valve stenosis and sick sinus syndrome, bronchial asthma, recurrent urinary tract infection. PAST SURGICAL HISTORY: Significant for permanent pacemaker placement. PAST PSYCHIATRIC HISTORY: Significant for depression with marked mood swings, but no clear diagnosis of bipolar disorder. ALLERGIES: SHE IS ALLERGIC TO SIMVASTATIN. MEDICATIONS: She is currently on following medications: Amlodipine besylate 10 mg once a day, losartan potassium 100 mg once a day, Tylenol 650 mg every 6 hours, clonazepam 0.5 mg takes one tablet 3 times a day, escitalopram oxalate 10 mg once a day, fluoxetine for Prozac 30 mg once a day, mirtazapine 15 mg at bedtime, aripiprazole for Abilify 2 mg p.o. daily, Colace 100 mg twice a day, folic acid 1 mg once a day, thiamine 100 mg once a day, multivitamin 1 tablet once a day. FAMILY HISTORY: Noncontributory. SOCIAL HISTORY: The patient apparently lives at home with her . 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 She does not drink alcohol or use any recreational drugs. REVIEW OF SYSTEMS: As per history of present illness. PHYSICAL EXAMINATION: GENERAL: On arrival to the ICU, the patient continued to be somewhat lethargic, but arousable. She was pale, cachectic. There is no jaundice, cyanosis or thyromegaly. No jugular venous distention. No limb edema. VITAL SIGNS: Her heart rate on arrival was 80, blood pressure was 89/78, temperature was 98.3, respiratory rate was 16, and oxygen saturation was 99%. HEAD, EYES, EARS, NOSE AND THROAT: Showed normocephalic, atraumatic. NECK: Supple. HEART: Showed normal first and second heart sounds. No gallop or murmur. CHEST: Clear to auscultation. No crepitation or rhonchi. ABDOMEN: Distended, soft, nontender. No guarding or rigidity. No organomegaly. All hernial orifices intact. Bowel sounds normal. NEUROLOGIC: She was very lethargic, but arousable. All cranial nerves intact. She moves extremities spontaneously LABORATORY DATA: Has had lab work done, which showed that her white cell count was up to 16,600, hemoglobin 15.4, hematocrit 46.8, MCV 93, and platelet count 249,000. Her chemistry showed a serum sodium 143, potassium 3.7, chloride 105, bicarbonate 28, anion gap of 10, BUN 22, creatinine 1.1, estimated GFR was 47 mL per minute. Her glucose 159, calcium was 8.6. She has had urine culture done on 07/27 and at that time she grew coagulase-negative Staphylococcus species for which she was on Levaquin. PLAN: My plan is to switch her to vancomycin and add also Zosyn. Continue with IV fluid and we repeated her blood cultures again and we will decide the further management accordingly. AUDIE ALCARAZ MD DR: ALYX/esther JOB#: [id number] / [id number]
[2019-08-01] MEDS ORDERED: MAGNESIUM HYDROXIDE 2,400 MG/30 ML ORAL.SUSP. PO PRN (15:15)
[2019-08-01] MEDS ORDERED: METHYL SALICYLATE/MENTHOL TOPICAL OINTMENT 57GM TUBE. TP PRN (15:15)
--- NOTE | 2019-08-01 15:26 | NUR ---
PT was hypotensive on SBHU. PT was started on Levaquin yesterday. Pt brought to ICU pt is partially able to verbalize understanding of transfer. PT reports we are just scamming her. Pt is uncooperative at times and pulls her arm away when drawing blood. IV started in R ac and fluids started immediately. PT hypotensive on arrival to ICU with a map of 45. PT lethargic but is responding. Will continue to monitor. Dung HARE Addendum: 08/01/19 at 1830 by HANY OLIVER RN PT had 2 loose stools upstairs on SBHU after starting PO levaquin yesterday. PT has had no stools since arrival on unit. Will continue to monitor. Dung HARE
[2019-08-01] MEDS ORDERED: VANCOMYCIN 1.5 GM in IV NORMAL SALINE 500ML 500 ML IV ONE (16:00)
[2019-08-01] MEDS: QUEtiapine 25 MG TABLET. PO SCH ×2 (16:45→20:33)
--- NOTE | 2019-08-01 16:57 | NUR ---
Pharmacy Vancomycin Dosing Note S:Consulted to monitor and dose vancomycin started 08/01/19. O:COURTNEY MUNIZ is a 84 year old F with Sepsis, . Height: 5 feet, 5 inches Weight: 63.942026 kg [place] Body Weight: 57.00 Adjusted Body Weight: 59.44 Dosing Weight: Actual Other Antibiotics: ZOSYN 2.25GM IV Q6HR LABS: Last BUN: 22 Last Creatinine: 1.1 Creatinine Clearance: 34.44 Last WBC: 16.6 Vancomycin Dosing: Loading Dose: 1500 mg x1 Dosing Weight: Actual Target Trough: 15-20 A: Based on: Actual weight, renal function and indication P: 1. Begin Vancomycin 1000 mg IV q24h 2. Follow up Trough level on 08/03/19 at 1530 3. Pharmacy will continue to monitor, follow and adjust therapy as needed. TONIA MCFARLANE, 08/01/19 [id number]
[2019-08-01] MEDS: PIPERACILLIN/TAZOBACTAM 2.25 GM in IV NORMAL SALINE 50ML 50 ML IV SCH (17:48)
--- NOTE | 2019-08-01 18:30 | NUR ---
After receiving Vanco and zosyn pt is now having loose stools. Pt had one episode will continue to monitor and send cdiff if continues. Dung HARE
--- NOTE | 2019-08-01 19:54 | RAD ---
Exam: Chest one view INDICATION: Shortness of breath TECHNIQUE: Frontal view of the chest Comparisons: None FINDINGS: Pacer with leads terminating the right atrium and ventricle. The cardiomediastinal silhouette and pulmonary vessels are within normal limits. Patchy bibasilar airspace disease noted. No pleural effusion. Large hiatal hernia. IMPRESSION: Findings which may relate to mild pulmonary edema. A superimposed infectious process is difficult to exclude. Electronically signed by: Héctor Leon MD (08/01/2019 7:50 PM) [facility]
[2019-08-01] MEDS: clonazePAM 0.5 MG TABLET PO SCH (20:33)
[2019-08-01] MEDS: traZODone 50 MG TABLET. PO SCH (20:33)
[2019-08-01] MEDS: LACTOBACILLUS RHAMNOSUS GG 1 CAPSULE. PO SCH (20:33)
[2019-08-01] MEDS: MIRTAZAPINE ODT 15 MG TAB.RAPDIS. PO SCH (20:34)
[2019-08-02] VITALS (14 sets, daily range): BP systolic 42–143; BP diastolic 48–84
[2019-08-02] MEDS: PIPERACILLIN/TAZOBACTAM 2.25 GM in IV NORMAL SALINE 50ML 50 ML IV SCH ×3 (00:14→12:00)
[2019-08-02] MEDS ORDERED: levoFLOXacin 250 MG TABLET PO SCH (06:00)
[2019-08-02] MEDS: POTASSIUM CL 20MEQ D5-0.45NACL 1,000 ML IV SCH ×2 (06:27→16:03)
[2019-08-02 06:54] LABS: BASO # 0.1 x10^3/uL (0.0-0.2); BASO % 0 % (0-3); EOS % 0 % (0-3); HEMATOCRIT 42.9 % (36.0-47.0); HEMOGLOBIN 13.9 g/dL (12.0-15.5); LYMPH # 2.9 x10^3/uL (1.0-4.8); LYMPH % 22 % (24-48); MEAN CORPUSCULAR HEMOGLOBIN 30 pg (25-35); MEAN CORPUSCULAR HGB CONC 32 g/dL (31-37); MEAN CORPUSCULAR VOLUME 94 fL (79-100); MONO # 0.7 x10^3/uL (0.0-1.1); MONO % 6 % (0-9); NEUT # 9.5 x10^3uL (1.8-7.7); NEUT % 72 % (31-73); PLATELET COUNT 187 x10^3/uL (140-400); RED BLOOD COUNT 4.59 x10^6/uL (3.50-5.40); RED CELL DISTRIBUTION WIDTH 14.7 % (11.5-14.5); WHITE BLOOD COUNT 13.2 x10^3/uL (4.0-11.0)
[2019-08-02 07:10] LABS: ALBUMIN 2.2 g/dL (3.4-5.0); ALBUMIN/GLOBULIN RATIO 0.6 (1.0-1.7); CALCIUM 7.9 mg/dL (8.5-10.1); CREATININE 0.9 mg/dL (0.6-1.0); GFR 59.4; POTASSIUM 3.6 mmol/L (3.5-5.1); TOTAL BILIRUBIN 0.5 mg/dL (0.2-1.0); TOTAL PROTEIN 5.7 g/dL (6.4-8.2)
[2019-08-02] MEDS: MULTIVITAMIN with MINERAL TABLET. PO SCH (08:44)
[2019-08-02] MEDS: clonazePAM 0.5 MG TABLET PO SCH ×3 (08:44→20:30)
[2019-08-02] MEDS: POTASSIUM CHLORIDE 20 MEQ TABLET.ER. PO SCH (08:44)
[2019-08-02] MEDS: LACTOBACILLUS RHAMNOSUS GG 1 CAPSULE. PO SCH ×2 (08:44→20:28)
[2019-08-02] MEDS: LOSARTAN 50 MG TABLET. PO SCH ×2 (08:45→08:47)
[2019-08-02] MEDS: THIAMINE 100 MG TABLET. PO SCH (08:45)
[2019-08-02] MEDS: FOLIC ACID 1 MG TABLET PO SCH (08:45)
[2019-08-02] MEDS: QUEtiapine 25 MG TABLET. PO SCH ×3 (08:45→20:30)
[2019-08-02] MEDS: amLODIPine BESYLATE 10 MG TABLET PO SCH (08:45)
[2019-08-02] MEDS: FLUoxetine HCL 10 MG CAPSULE PO SCH (08:45)
[2019-08-02] MEDS: DICYCLOMINE HCL 10 MG CAPSULE PO PRN (13:00)
[2019-08-02] MEDS ORDERED: VANCOMYCIN 1 GM in IV NORMAL SALINE 250ML 250 ML IV SCH (16:00)
[2019-08-02] MEDS: VANCOMYCIN 125 MG/2.5 ML ORAL SOLUTION. PO SCH ×2 (16:29→20:30)
--- NOTE | 2019-08-02 18:12 | PN ---
DATE: 08/02/2019 SUBJECTIVE: The patient is resting flat in bed, in no apparent distress. She is somewhat confused. Did complain of abdominal cramping. She has multiple episodes of loose bowel movement and her stool came back positive for C. diff toxins and therefore, we discontinued all other antibiotics and started her on oral vancomycin. OBJECTIVE: GENERAL: When I examined her, she looked somewhat pale, no jaundice, cyanosis, or thyromegaly. No jugular venous distension. No lower limb edema. VITAL SIGNS: Her heart rate was 81, blood pressure was 137/55, temperature was 98.1, respiratory rate was 20, and oxygen saturation was 98%. HEAD, EYES, EARS, NOSE AND THROAT: Showed normocephalic, atraumatic. NECK: Supple. HEART: Showed normal first and second heart sounds. No gallop or murmur. CHEST: Clear to auscultation. No crepitation or rhonchi. ABDOMEN: Distended, soft with mild diffuse tenderness. No guarding or rigidity. No organomegaly. All hernial orifice intact. Bowel sounds normal. NEUROLOGIC: She is awake, alert, responding appropriately, although she is more confused. She is definitely more awake today than yesterday. All her cranial nerves are intact. She moves extremities without difficulty. LABORATORY DATA: Her intake was 1200, output was 400 as of this morning, her white cell count was 13,000, hemoglobin 13.9, hematocrit 43, MCV 94 and platelet count of 187,000. Her chemistry showed a serum sodium 141, potassium 3.6, chloride 110, bicarbonate 23, anion gap of 8, BUN 23, creatinine 0.9, estimated GFR was 26 mL per minute. Her glucose 144, calcium was 7.9. Total bilirubin, AST, ALT, alkaline phosphatase were normal. Total protein 5.7, albumin 2.2. Her stool for C. diff toxins were positive. ASSESSMENT: Sepsis with marked leukocytosis. The patient developed diarrhea and her stool was positive for C. diff toxins. Plan is to discontinue her Zosyn and vancomycin, start her on oral vancomycin. Continue with IV fluid. Other medical problems include hypertension, mitral valve stenosis, sick sinus syndrome, bronchial asthma, and recurrent urinary tract infection. AUDIE ALCARAZ MD DR: ALYX/esther JOB#: [id number] / [id number]
[2019-08-02] MEDS: traZODone 50 MG TABLET. PO SCH (20:28)
[2019-08-02] MEDS: MIRTAZAPINE ODT 15 MG TAB.RAPDIS. PO SCH (20:30)
--- NOTE | 2019-08-02 20:37 | PDOC ---
Exam Note: Jay Note: Please also refer to the separate dictated note~for this date of service dictated separately.~Patient seen individually. Discussed the patient with Nursing staff reviewed the chart.~Reviewed interim history and current functioning. Reviewed vital signs,~Labs/ Radiology~and current medications noted below. Continue current treatment with the changes noted in the dictated addendum note Assessment: Vital Signs/I&O: Vital Signs Date Time Temp Pulse Resp B/P (MAP) Pulse Ox O2 Delivery O2 Flow Rate FiO2 08/02/19 17:39 99.2 83 23 136/50 (78) 94 Room Air I & O 08/01/19 08/01/19 08/02/19 15:00 23:00 07:00 Intake Total 1000 ml 120 ml 100 ml Output Total 400 ml Balance 600 ml 120 ml 100 ml Labs: Laboratory Tests Test 08/01/19 21:00 08/02/19 06:45 Clostridioides difficile Toxin B Gene Positive (Negative) *A White Blood Count 13.2 x10^3/uL (4.0-11.0) H Red Blood Count 4.59 x10^6/uL (3.50-5.40) Hemoglobin 13.9 g/dL (12.0-15.5) Hematocrit 42.9 % (36.0-47.0) Mean Corpuscular Volume 94 fL (79-100) Mean Corpuscular Hemoglobin 30 pg (25-35) Mean Corpuscular Hemoglobin Concent 32 g/dL (31-37) Red Cell Distribution Width 14.7 % (11.5-14.5) H Platelet Count 187 x10^3/uL (140-400) Neutrophils (%) (Auto) 72 % (31-73) Lymphocytes (%) (Auto) 22 % (24-48) L Monocytes (%) (Auto) 6 % (0-9) Eosinophils (%) (Auto) 0 % (0-3) Basophils (%) (Auto) 0 % (0-3) Neutrophils # (Auto) 9.5 x10^3uL (1.8-7.7) H Lymphocytes # (Auto) 2.9 x10^3/uL (1.0-4.8) Monocytes # (Auto) 0.7 x10^3/uL (0.0-1.1) Eosinophils # (Auto) 0.0 x10^3/uL (0.0-0.7) Basophils # (Auto) 0.1 x10^3/uL (0.0-0.2) Sodium Level 141 mmol/L (136-145) Potassium Level 3.6 mmol/L (3.5-5.1) Chloride Level 110 mmol/L (98-107) H Carbon Dioxide Level 23 mmol/L (21-32) Anion Gap 8 (6-14) Blood Urea Nitrogen 23 mg/dL (7-20) H Creatinine 0.9 mg/dL (0.6-1.0) Estimated GFR (Cockcroft-Gault) 59.4 BUN/Creatinine Ratio 26 (6-20) H Glucose Level 144 mg/dL (70-99) H Calcium Level 7.9 mg/dL (8.5-10.1) L Total Bilirubin 0.5 mg/dL (0.2-1.0) Aspartate Amino Transferase (AST) 15 U/L (15-37) Alanine Aminotransferase (ALT) 14 U/L (14-59) Alkaline Phosphatase 76 U/L (46-116) Total Protein 5.7 g/dL (6.4-8.2) L Albumin 2.2 g/dL (3.4-5.0) L Albumin/Globulin Ratio 0.6 (1.0-1.7) L Current Medications: Meds: Current Medications Medications (Trade) Dose Ordered Sig/Gian Route PRN Reason Start Time Stop Time Status Last Admin Dose Admin Clonazepam (KlonoPIN) 0.25 mg DAILY PO 08/02/19 09:00 08/02/19 08:44 Clonazepam (KlonoPIN) 0.5 mg HS PO 08/01/19 21:00 08/02/19 20:30 Fluoxetine HCl (PROzac) 30 mg DAILY PO 08/02/19 09:00 08/02/19 08:45 Lactobacillus Rhamnosus (Culturelle) 1 cap BID PO 08/01/19 21:00 08/02/19 20:28 Mirtazapine (Remeron Sherita-Tab) 15 mg QHS PO 08/01/19 21:00 08/02/19 20:30 Quetiapine Fumarate (SEROquel) 25 mg QHS PO 08/01/19 21:00 08/02/19 20:30 Trazodone HCl (Desyrel) 50 mg QHS PO 08/01/19 21:00 08/02/19 20:28 Folic Acid (Folic Acid) 1 mg DAILY PO 08/02/19 09:00 08/02/19 08:45 Multivitamins/ Calcium (Thera-M Plus) 1 tab DAILY PO 08/02/19 09:00 08/02/19 08:44 Potassium Chloride (Klor-Con) 20 meq DAILY PO 08/02/19 09:00 08/02/19 08:44 Thiamine HCl (Vitamin B-1) 100 mg DAILY PO 08/02/19 09:00 08/02/19 08:45 Dicyclomine HCl (Bentyl) 10 mg PRN BID PRN PO CRAMPING 08/02/19 12:45 08/02/19 13:00 Vancomycin HCl (Vancomycin Oral Solution) 125 mg [id number] PO 08/02/19 17:00 08/02/19 20:30 I have reviewed the current psychotropics carefully including drug interactions. Risk benefit ratio favors no change other than as noted in my dictated progress note. Diagnosis: Problems: (1) Impulse control disorder (2) Anxiety disorder (3) Major depressive disorder, recurrent episode (4) Urinary tract infection ALEKSANDER REESE MD Aug 02, 2019 20:37
[2019-08-03] VITALS: BP 157/66
[2019-08-03 04:00] VITALS: BP 146/47
[2019-08-03] MEDS: POTASSIUM CL 20MEQ D5-0.45NACL 1,000 ML IV SCH (05:20)
[2019-08-03 06:51] LABS: HEMATOCRIT 40.7 % (36.0-47.0); HEMOGLOBIN 13.6 g/dL (12.0-15.5); RED BLOOD COUNT 4.4 x10^6/uL (3.50-5.40); RED CELL DISTRIBUTION WIDTH 14.6 % (11.5-14.5); WHITE BLOOD COUNT 14.5 x10^3/uL (4.0-11.0)
[2019-08-03 07:06] LABS: ALBUMIN 1.9 g/dL (3.4-5.0); ALBUMIN/GLOBULIN RATIO 0.5 (1.0-1.7); CALCIUM 7.8 mg/dL (8.5-10.1); CREATININE 0.7 mg/dL (0.6-1.0); GFR 79.3; POTASSIUM 3.2 mmol/L (3.5-5.1); TOTAL BILIRUBIN 0.4 mg/dL (0.2-1.0); TOTAL PROTEIN 5.5 g/dL (6.4-8.2)
[2019-08-03] MEDS: VANCOMYCIN 125 MG/2.5 ML ORAL SOLUTION. PO SCH ×4 (08:32→20:57)
[2019-08-03] MEDS: FLUoxetine HCL 10 MG CAPSULE PO SCH (08:33)
[2019-08-03] MEDS: clonazePAM 0.5 MG TABLET PO SCH ×3 (08:33→20:57)
[2019-08-03] MEDS: LACTOBACILLUS RHAMNOSUS GG 1 CAPSULE. PO SCH ×2 (08:33→20:57)
[2019-08-03] MEDS: LOSARTAN 50 MG TABLET. PO SCH (08:33)
[2019-08-03] MEDS: amLODIPine BESYLATE 10 MG TABLET PO SCH (08:34)
[2019-08-03] MEDS: POTASSIUM CHLORIDE 20 MEQ TABLET.ER. PO SCH (08:34)
[2019-08-03] MEDS: THIAMINE 100 MG TABLET. PO SCH (08:34)
[2019-08-03] MEDS: DICYCLOMINE HCL 10 MG CAPSULE PO PRN (08:34)
[2019-08-03] MEDS: FOLIC ACID 1 MG TABLET PO SCH (08:34)
[2019-08-03] MEDS: QUEtiapine 25 MG TABLET. PO SCH ×3 (08:34→20:57)
[2019-08-03] MEDS: MULTIVITAMIN with MINERAL TABLET. PO SCH (08:35)
--- NOTE | 2019-08-03 10:18 | NUR ---
PT having abd cramping today. She has a rectal tube in place with liquid stools. Pt is unable to verbalize understanding of poc. Dung Duval
[2019-08-03] MEDS ORDERED: IOHEXOL 300 MG/ML 75 ML VIAL. IV ONE (11:45)
[2019-08-03 11:48] VITALS: BP 110/47
--- NOTE | 2019-08-03 11:54 | PN ---
DATE: 08/03/2019 SUBJECTIVE: The patient is resting flat in bed, continued to complain of abdominal pain, no nausea, no vomiting. Did have loose bowel movement, requiring a rectal tube. PHYSICAL EXAMINATION: GENERAL: When I examined her, she looked pale, somewhat cachectic, but no jaundice, cyanosis or thyromegaly. No jugular venous distention. No limb edema. VITAL SIGNS: Her heart rate was 85, blood pressure was 146/47, temperature was 99.3, respiratory rate was 24, and oxygen saturation was 94%. HEAD, EYES, EARS, NOSE AND THROAT: Showed normocephalic, atraumatic. NECK: Supple. CARDIAC: Normal first and second heart sounds. No gallop or murmur. CHEST: Clear to auscultation. No crepitation or rhonchi. ABDOMEN: Distended, mild tenderness in the left lower quadrant. No guarding or rigidity. No organomegaly. All hernial orifice intact. Bowel sounds normal. NEUROLOGIC: She is demented, but without any obvious lateralizing sign. Her intake was 1220, output was 400. LABORATORY DATA: White cell count went up to 14,500, hemoglobin 13.6, hematocrit 40.7, MCV 93, and platelet count of 203,000. Her chemistry showed a serum sodium 140, potassium 3.2, chloride 108, bicarbonate 22, anion gap of 10, BUN 12, creatinine 0.7, estimated GFR was 79 mL per minute. Her glucose was 134, calcium was 7.8. Total bilirubin, AST, ALT, alkaline phosphatase were normal. Total protein was 5.5, albumin was 1.9. ASSESSMENT: 1. Sepsis marked leukocytosis. The patient developed diarrhea and her stool came back positive for Clostridium difficile toxins. Plan is to continue with oral vancomycin 150 mg every 4 hours continue. 2. She has also hypokalemia and I changed her IV fluid to D5 half normal with 40 mEq of potassium chloride. 3. The patient has multiple other medical problems including: A. Hypertension. B. Mitral valve stenosis. C. Sick sinus syndrome. D. Bronchial asthma. E. Recurrent urinary tract infection. PLAN: Plan is to arrange for her to have a CT scan of the abdomen and pelvis with IV and oral contrast. AUDIE ALCARAZ MD DR: ALYX/esther JOB#: [id number] / [id number]
[2019-08-03] MEDS: POTASSIUM CL 40MEQ D5-0.45NACL 1,000 ML IV SCH (11:57)
--- NOTE | 2019-08-03 13:40 | RAD ---
Exam performed: CT abdomen and pelvis with contrast HISTORY: Abdominal pain, suspected perforation. DATE OF SERVICE: 08/03/2019. COMPARISON: None available TECHNIQUE: Contiguous helical acquisitions are obtained through the abdomen and pelvis during intravenous administration of 75 cc of Omnipaque 300. Sagittal reformatted images are obtained and reviewed. FINDINGS: Small bilateral pleural effusions. Emphysematous changes seen in both lung bases. Moderate hiatal hernia. The heart size is normal. There is normal in size and attenuation. Low attenuating probable cyst seen in both right and left hepatic lobe. The spleen, pancreas and gallbladder appear normal. Both adrenal glands and bilateral kidneys are normal in size with symmetric excretion of contrast via both kidneys. There is no hydronephrosis or nephrolithiasis. Aorta is normal in caliber without aneurysm. Small bowel loops are nondilated and unremarkable. There is diffuse wall thickening of the colon predominantly the distal transverse and descending colon to involve the rectosigmoid colon. There is a rectal tube in place. Urinary bladder is distended. Small amount of free fluid seen in the pelvis. No pelvic masses or lymphadenopathy seen. Generalized osteopenia and spondylotic changes with multilevel disc degenerative changes are seen. There are degenerative changes about bilateral hips with postoperative changes of the left hip. IMPRESSION: Diffuse wall thickening of the distal transverse, descending and rectosigmoid colon consistent with colitis. Trace amount of pelvic free fluid likely reactive. Hepatic cysts. Moderate hiatal hernia. Small bilateral pleural effusions. PQRS Compliance Statement: One or more of the following individualized dose reduction techniques were utilized for this examination: 1. Automated exposure control 2. Adjustment of the mA and/or kV according to patient size 3. Use of iterative reconstruction technique Electronically signed by: Diana Moura MD (08/03/2019 1:37 PM) [place]
--- NOTE | 2019-08-03 15:19 | NUR ---
PT having increased pain In LLQ. Dr Lyon ordered CT/ABD PELVIS with oral and IV contrast. Pt taken to CT by tech per wheelchair. PT sleeping at times, still having pain. Will continue to monitor. Active bowel sounds in all quadrants with no ridgity noted Kiley HARE
--- NOTE | 2019-08-03 15:22 | NUR ---
Dr Lyon called with CT results, no new orders at this time. Kiley HARE
[2019-08-03 15:30] VITALS: BP 115/47
[2019-08-03 20:00] VITALS: BP 142/58
--- NOTE | 2019-08-03 20:37 | PDOC ---
Exam Note: Jay Note: Please also refer to the separate dictated note~for this date of service dictated separately. Discussed the patient with Nursing staff reviewed the chart.~Reviewed interim history and current functioning. Reviewed vital signs,~Labs/ Radiology~and current medications noted below. Continue current treatment with the changes noted in the dictated addendum note Assessment: Vital Signs/I&O: Vital Signs Date Time Temp Pulse Resp B/P (MAP) Pulse Ox O2 Delivery O2 Flow Rate FiO2 08/03/19 17:30 94 Room Air 08/03/19 15:30 97.9 87 20 115/47 (69) I & O 08/02/19 08/02/19 08/03/19 15:00 23:00 07:00 Intake Total 740 ml 1190 ml 1250 ml Balance 740 ml 1190 ml 1250 ml Labs: Laboratory Tests Test 08/03/19 06:38 White Blood Count 14.5 x10^3/uL (4.0-11.0) H Red Blood Count 4.40 x10^6/uL (3.50-5.40) Hemoglobin 13.6 g/dL (12.0-15.5) Hematocrit 40.7 % (36.0-47.0) Mean Corpuscular Volume 93 fL (79-100) Mean Corpuscular Hemoglobin 31 pg (25-35) Mean Corpuscular Hemoglobin Concent 33 g/dL (31-37) Red Cell Distribution Width 14.6 % (11.5-14.5) H Platelet Count 203 x10^3/uL (140-400) Sodium Level 140 mmol/L (136-145) Potassium Level 3.2 mmol/L (3.5-5.1) L Chloride Level 108 mmol/L (98-107) H Carbon Dioxide Level 22 mmol/L (21-32) Anion Gap 10 (6-14) Blood Urea Nitrogen 12 mg/dL (7-20) Creatinine 0.7 mg/dL (0.6-1.0) Estimated GFR (Cockcroft-Gault) 79.3 BUN/Creatinine Ratio 17 (6-20) Glucose Level 134 mg/dL (70-99) H Calcium Level 7.8 mg/dL (8.5-10.1) L Total Bilirubin 0.4 mg/dL (0.2-1.0) Aspartate Amino Transferase (AST) 13 U/L (15-37) L Alanine Aminotransferase (ALT) 10 U/L (14-59) L Alkaline Phosphatase 83 U/L (46-116) Total Protein 5.5 g/dL (6.4-8.2) L Albumin 1.9 g/dL (3.4-5.0) L Albumin/Globulin Ratio 0.5 (1.0-1.7) L Current Medications: Meds: Current Medications Medications (Trade) Dose Ordered Sig/Gian Route PRN Reason Start Time Stop Time Status Last Admin Dose Admin Potassium Chloride/Dextrose/ Sod Cl 1,000 ml @ 75 mls/hr [id number] IV 08/03/19 11:15 08/03/19 11:57 Fentanyl Citrate (Fentanyl 2ml Vial) 50 mcg PRN Q3HRS PRN IVP SEVERE PAIN 08/03/19 11:15 08/03/19 17:30 I have reviewed the current psychotropics carefully including drug interactions. Risk benefit ratio favors no change other than as noted in my dictated progress note. Diagnosis: Problems: (1) Impulse control disorder (2) Anxiety disorder (3) Major depressive disorder, recurrent episode (4) Urinary tract infection ALEKSANDER REESE MD Aug 03, 2019 20:37
[2019-08-03] MEDS: traZODone 50 MG TABLET. PO SCH (20:57)
[2019-08-03] MEDS: MIRTAZAPINE ODT 15 MG TAB.RAPDIS. PO SCH (20:57)
--- NOTE | 2019-08-04 00:43 | CONS ---
DATE OF CONSULTATION: 08/01/2019 NEUROLOGY CONSULTATION REFERRING PHYSICIAN: Dr. Brown. REASON FOR CONSULTATION: Mental status changes. HISTORY OF PRESENT ILLNESS: This is an 84-year-old right-handed female who was admitted on 07/26/2019 to the [facility] on account of increasing symptoms of confusion, disorientation and paranoid hallucinations. Neuro consult was requested because of a 2-week history of worsening of his mental status. She is a resident at [facility], who was initially transferred from [facility] Room. The patient has been depressed and hopeless and helpless. She became very anxious and paranoid. The patient was found by the staff this morning to be very lethargic with some behavior changes, she refused to take her medications and refusing to eat and drink. Apparently, she had one episode of emesis and diarrhea times 2 this morning. The current blood tests reveal elevated white blood cells and serious dropping in her blood pressure to 67-40. The patient was depressed and anxious. Finally, her medical physician was called and decided to transfer the patient to ICU for further evaluation. She denies headaches, visual disturbances, chest pain, shortness of breath or palpitation. PAST MEDICAL HISTORY: Significant for hypertension, sick sinus syndrome required pacemaker implant, asthma, recurrent urinary tract infections and mitral valve stenosis. PAST SURGICAL HISTORY: Significant for permanent pacemaker placement. PAST PSYCHIATRIC HISTORY: Positive for anxiety, depressions, and possible bipolar disorder. FAMILY HISTORY: Unobtainable. SOCIAL HISTORY: The patient lives at a group home with her . She denies smoking, alcohol drinking, or illicit drug use. REVIEW OF SYSTEMS: A 10-point review of system was performed as mentioned above in the history of present illness. PHYSICAL EXAMINATION: GENERAL: A well-developed, well-nourished female, not in acute distress. She weighs 65 kilos. VITAL SIGNS: Blood pressure was 133/54, respiratory rate 21, pulse is 80, oxygen saturation 97% on room air. HEENT: Normocephalic, atraumatic, otherwise unremarkable. NECK: Supple. Negative for carotid bruit, lymphadenopathy or thyromegaly. LUNGS: Clear to A and P. CARDIOVASCULAR: Regular rate and rhythm, normal S1, S2. There is no S3, S4 or murmur. ABDOMEN: Soft. Bowel sounds positive. EXTREMITIES: Negative for cyanosis, clubbing, or pitting edema. NEUROLOGICAL: MENTAL STATUS: The patient is alert to herself and she knows she is in the hospital. Speech is fluent. There is no language dysfunction. Memory, judgment, and abstract thinking are fair. The patient denies hallucination with delusion at this time. CRANIAL NERVES: The pupils are reactive to light and accommodation. The extraocular movements are intact. There is no nystagmus. There is no facial motor or sensory deficit. Hearing is intact bilaterally. The palate is elevated symmetrically. Sternocleidomastoid muscles are powerful bilaterally. The patient shrugs her shoulders symmetrically, protrudes her tongue in the midline without fasciculation or atrophy. MOTOR: No focal muscle bulk was seen. The tone is normal. The strength is 4/5 throughout. SENSORY: Examination revealed normal pinprick, light touch, vibratory and position senses. DEEP TENDON REFLEXES: Asymmetric and hypoactive with absent Achilles responses. GAIT: The patient uses a wheelchair for ambulation. LABORATORY DATA: CBC revealed white blood cells of 16,600, hemoglobin 15.4, hematocrit 46.8, platelet count 249,000. Chemistry revealed sodium of 143, potassium 3.7, chloride 106, CO2 of 28, BUN 22, creatinine 1.1, glucose 159, and calcium 8.6. Urine test was performed on 07/27/2019 and revealed evidence of urinary tract infection and based on the culture, she was placed on Levaquin. Diagnostic chest x-ray revealed mild pulmonary edema and possible superimposed infection process. CT of the abdomen and pelvis revealed colitis and hepatic cyst, hiatal hernia and small bilateral pleural effusion. IMPRESSION: 1. Slowly progressive mental status changes with recent worsening consistent with acute encephalopathy due to possible underlying systemic infections with significant hypotension. This finding may have contributed to the current mental status changes. 2. Multiple medical problems include mitral valve stenosis, history of hypertension, recurrent urinary tract infections and status post pacemaker placement. PLAN: 1. Aggressive treatment for systemic infection, probably urinary tract infections. 2. Watch for progressive pulmonary edema. 3. Treat the underlying psychiatric disorder. M Kamlesh MIGUEL MD DR: MARA/esther JOB#: [id number] / [id number]
--- NOTE | 2019-08-04 01:00 | PN ---
DATE: 08/02/2019 SUBJECTIVE: The patient denies any new neurological complaints. She continues to complain of abdominal cramping and loose stool. The culture of stool still revealed evidence of C. diff toxin. Therefore, the patient was started on vancomycin and Levaquin was discontinued. Currently, the patient denies headaches, visual disturbances, chest pain, shortness of breath or palpitation. OBJECTIVE: GENERAL APPEARANCE: Well-developed, well-nourished female, not in acute distress. VITAL SIGNS: Blood pressure 137/55, respiratory rate 20, pulse is 81 and regular, oxygen saturation 98 on room air. HEENT: Normocephalic, atraumatic, otherwise unremarkable. NECK: Supple. Negative for carotid bruit, JVD or thyromegaly. LUNGS: With diminished breath sounds on the bases. No crackles or wheezing. CARDIOVASCULAR: Regular rhythm, normal S1, S2. There is no S3, S4 or murmur. ABDOMEN: Soft. Bowel sounds positive. EXTREMITIES: Negative for cyanosis, clubbing or edema. NEUROLOGICAL: MENTAL STATUS: The patient is alert and oriented x 2. The patient knows she is in the hospital. She knows the hospital and she did know the date of the day and the month. Speech is fluent. There is no language dysfunction. The patient recalls 2/3 immediately and after 1 minute. Judgment and abstract thinking are fair. The patient denies hallucination or delusion. CRANIAL NERVES: Cranial nerves are intact. NEUROLOGIC: No focal muscle bulk was seen. The tone is normal. The strength, positive 4/5 throughout. SENSORY EXAMINATION: Revealed normal pinprick and light touch senses throughout. Deep tendon reflexes were symmetric and hypoactive with absent Achilles responses. GAIT: The patient is bound to a wheelchair. LABORATORY DATA: CBC revealed white blood cells of 13.2 thousand, hemoglobin 13.9, hematocrit 42.9, platelet count 187,000. Chemistry revealed sodium of 141, potassium 3.6, chloride 110, CO2 of 23, BUN 23, creatinine 0.9, glucose 144 and calcium 7.9. Lactic acid is high at 2.2 from 08/01/2019. Liver enzymes are normal. IMPRESSION: 1. Acute encephalopathy, probably aggravated by underlying systemic infections -- urinary tract infections. 2. Multiple medical problems include hypertension, mitral valve stenosis, recurrent urinary tract infections and sick sinus syndrome, required permanent pacemaker placement. 3. Colitis and Clostridium difficile infection. 4. Multiple psychiatric problems include anxiety disorders, possible bipolar disorders of attention and depressive type. RECOMMENDATION: Continue with current medical and psychiatric care. M Kamlesh MIGUEL MD DR: MARA/esther JOB#: [id number] / [id number]
[2019-08-04] MEDS: POTASSIUM CL 40MEQ D5-0.45NACL 1,000 ML IV SCH ×3 (01:08→22:34)
--- NOTE | 2019-08-04 01:09 | PN ---
DATE: 08/02/2019 SUBJECTIVE: The patient denies any new neurological complaints. She continues to complain of abdominal cramping and loose stool. The culture still revealed evidence of C. diff toxin, therefore, the patient was started on vancomycin and Levaquin was discontinued. Currently, the patient denies headaches, visual disturbances, chest pain, shortness of breath or palpitation. OBJECTIVE: GENERAL APPEARANCE: Well-developed, well-nourished female, not in acute distress. VITAL SIGNS: Blood pressure 137/55, respiratory rate 20, pulse is 81 and regular, oxygen saturation 98 on room air. HEENT: Normocephalic, atraumatic, otherwise unremarkable. NECK: Supple. Negative for carotid bruit, JVD or thyromegaly. LUNGS: With diminished breath sounds on the bases. No crackles or wheezing. CARDIOVASCULAR: Regular rhythm, normal S1, S2. There is no S3, S4 or murmur. ABDOMEN: Soft. Bowel sounds positive. EXTREMITIES: Negative for cyanosis, clubbing or edema. NEUROLOGICAL: Mental status: The patient is alert and oriented x 2. The patient knows she is in the hospital. She knows the hospital and she did know the date of the day and the month. The speech is fluent. There is no language dysfunction. The patient recalls 2/3 immediately and after 1 minute. Judgment and abstract thinking are fair. The patient denies hallucination or delusion. Cranial nerves are intact. Motor examination, no focal muscle bulk wasting. The tone was normal. The strength, positive 4/5 throughout. Sensory examination revealed normal pinprick and light touch senses throughout. Deep tendon reflexes were symmetric and hypoactive with absent Achilles responses. Gait, the patient is bound to a wheelchair. LABORATORY DATA: CBC revealed white blood cells of 13.2 thousand, hemoglobin 13.9, hematocrit 42.9, platelet count 187,000. Chemistry revealed sodium of 141, potassium 3.6, chloride 110, CO2 23, BUN 23, creatinine 0.9, glucose 144, calcium 7.9. Lactic acid is high at 2.2 from 08/01/2019. Liver enzymes are normal. IMPRESSION: 1. Acute encephalopathy probably aggravated by underlying systemic infections -- urinary tract infections. 2. Multiple medical problems include hypertension, mitral valve stenosis, recurrent urinary tract infections and sinus syndrome, required permanent pacemaker placement. 3. Colitis and Clostridium difficile infection. 4. Multiple psychiatric problems include anxiety disorders, possible bipolar disorder of attention towards depressive type. RECOMMENDATIONS: Continue with current medical and psychiatric care. M Kamlesh MIGUEL MD DR: MARA/esther JOB#: [id number] / [id number]
--- NOTE | 2019-08-04 06:15 | NUR ---
Pt pulled out rectal tube. Pt stating she can not urinate at this time and this nurse bladder scanned pt. 16 F straight cath inserted and 900 ML of urine obtained. Pt resting comfortably at this time, will CTM.
[2019-08-04 06:21] VITALS: BP 132/58
[2019-08-04 06:32] LABS: BASO % 0 % (0-3); EOS # 0.3 x10^3/uL (0.0-0.7); EOS % 2 % (0-3); HEMATOCRIT 42.5 % (36.0-47.0); HEMOGLOBIN 13.9 g/dL (12.0-15.5); LYMPH # 3.4 x10^3/uL (1.0-4.8); LYMPH % 26 % (24-48); MEAN CORPUSCULAR HEMOGLOBIN 30 pg (25-35); MEAN CORPUSCULAR HGB CONC 33 g/dL (31-37); MEAN CORPUSCULAR VOLUME 93 fL (79-100); MONO # 0.8 x10^3/uL (0.0-1.1); MONO % 6 % (0-9); NEUT # 8.7 x10^3uL (1.8-7.7); NEUT % 66 % (31-73); PLATELET COUNT 223 x10^3/uL (140-400); RED BLOOD COUNT 4.59 x10^6/uL (3.50-5.40); RED CELL DISTRIBUTION WIDTH 14.5 % (11.5-14.5); WHITE BLOOD COUNT 13.2 x10^3/uL (4.0-11.0)
[2019-08-04 06:58] LABS: CALCIUM 7.9 mg/dL (8.5-10.1); CREATININE 0.7 mg/dL (0.6-1.0); GFR 79.3; POTASSIUM 3.6 mmol/L (3.5-5.1)
[2019-08-04] MEDS: FLUoxetine HCL 10 MG CAPSULE PO SCH (09:03)
[2019-08-04] MEDS: VANCOMYCIN 125 MG/2.5 ML ORAL SOLUTION. PO SCH ×4 (09:03→20:03)
[2019-08-04] MEDS: THIAMINE 100 MG TABLET. PO SCH (09:04)
[2019-08-04] MEDS: LACTOBACILLUS RHAMNOSUS GG 1 CAPSULE. PO SCH ×2 (09:04→20:02)
[2019-08-04] MEDS: amLODIPine BESYLATE 10 MG TABLET PO SCH (09:04)
[2019-08-04] MEDS: QUEtiapine 25 MG TABLET. PO SCH ×3 (09:04→20:03)
[2019-08-04] MEDS: MULTIVITAMIN with MINERAL TABLET. PO SCH (09:04)
[2019-08-04] MEDS: clonazePAM 0.5 MG TABLET PO SCH ×3 (09:05→20:03)
[2019-08-04] MEDS: FOLIC ACID 1 MG TABLET PO SCH (09:05)
[2019-08-04] MEDS: POTASSIUM CHLORIDE 20 MEQ TABLET.ER. PO SCH (09:05)
[2019-08-04] MEDS: LOSARTAN 50 MG TABLET. PO SCH (09:05)
[2019-08-04 12:00] VITALS: BP 124/61
--- NOTE | 2019-08-04 15:19 | NUR ---
Pt is alert with intermittent dementia. Pt's two children, one of which being DPOH, expressed concern for being Full Code status. Pt changed from Full Code status to DNR, with Tova Sloan officiating and family present. Pt has had 3 BMs today. Have crushed pt's meds in pudding, pt tolerates well. Pt is more compliant w/ meds being crushed than whole. Bladder scanner today at 1500 showed >[address] Lyon of results. Will insert frey catheter per Dr's orders. Pt expresses pain in abdominal area. Have educated pt on the urinary retention and inflammation of colon s/t C. Diff infection. Non-skid socks applied, brief applied for bowel incontinence along with barrier cream. Pt has 40 mEq K, D5 1/2 NS going at 75 mL/hr, IV intact, no complaints of pain with IV. Bed in lowest position, have offered pt liquids as needed. Will continue to monitor and reassess throughout shift.
[2019-08-04 16:00] VITALS: BP 115/52
--- NOTE | 2019-08-04 18:51 | NUR ---
Inserted frey catheter per Dr's orders. 16 [place]. No complications. Frey draining. Dr. Weinstein and Dr. Brown came today per consults. 2.5 mg Zyprexa PRN ordered per Dr. Brown. No new other orders at this time. Will continue to assess and monitor.
[2019-08-04 20:00] VITALS: BP 149/59
[2019-08-04] MEDS: MIRTAZAPINE ODT 15 MG TAB.RAPDIS. PO SCH (20:02)
[2019-08-04] MEDS: traZODone 50 MG TABLET. PO SCH (20:02)
--- NOTE | 2019-08-04 20:30 | PDOC ---
Exam Note: Jay Note: Please also refer to the separate dictated note~for this date of service dictated separately.~Patient seen individually. Discussed the patient with Nursing staff reviewed the chart.~Reviewed interim history and current functioning. Reviewed vital signs,~Labs/ Radiology~and current medications noted below. Continue current treatment with the changes noted in the dictated addendum note Assessment: Vital Signs/I&O: Vital Signs Date Time Temp Pulse Resp B/P (MAP) Pulse Ox O2 Delivery O2 Flow Rate FiO2 08/04/19 20:23 Room Air 08/04/19 20:00 97.4 76 149/59 (89) 95 08/04/19 16:00 20 I & O 0 08/03/19 08/03/19 08/04/19 15:00 23:00 07:00 Intake Total 250 ml 300 ml 1150 ml Output Total 500 ml 901 ml Balance -250 ml 300 ml 249 ml Labs: Laboratory Tests Test 08/04/19 05:41 White Blood Count 13.2 x10^3/uL (4.0-11.0) H Red Blood Count 4.59 x10^6/uL (3.50-5.40) Hemoglobin 13.9 g/dL (12.0-15.5) Hematocrit 42.5 % (36.0-47.0) Mean Corpuscular Volume 93 fL (79-100) Mean Corpuscular Hemoglobin 30 pg (25-35) Mean Corpuscular Hemoglobin Concent 33 g/dL (31-37) Red Cell Distribution Width 14.5 % (11.5-14.5) Platelet Count 223 x10^3/uL (140-400) Neutrophils (%) (Auto) 66 % (31-73) Lymphocytes (%) (Auto) 26 % (24-48) Monocytes (%) (Auto) 6 % (0-9) Eosinophils (%) (Auto) 2 % (0-3) Basophils (%) (Auto) 0 % (0-3) Neutrophils # (Auto) 8.7 x10^3uL (1.8-7.7) H Lymphocytes # (Auto) 3.4 x10^3/uL (1.0-4.8) Monocytes # (Auto) 0.8 x10^3/uL (0.0-1.1) Eosinophils # (Auto) 0.3 x10^3/uL (0.0-0.7) Basophils # (Auto) 0.0 x10^3/uL (0.0-0.2) Sodium Level 139 mmol/L (136-145) Potassium Level 3.6 mmol/L (3.5-5.1) Chloride Level 107 mmol/L (98-107) Carbon Dioxide Level 24 mmol/L (21-32) Anion Gap 8 (6-14) Blood Urea Nitrogen 8 mg/dL (7-20) Creatinine 0.7 mg/dL (0.6-1.0) Estimated GFR (Cockcroft-Gault) 79.3 Glucose Level 131 mg/dL (70-99) H Calcium Level 7.9 mg/dL (8.5-10.1) L Current Medications: Meds: Current Medications Medications (Trade) Dose Ordered Sig/Gian Route PRN Reason Start Time Stop Time Status Last Admin Dose Admin Olanzapine (ZyPREXA ZYDIS) 2.5 mg PRN Q2HR PRN PO PSYCHOSIS 08/04/19 18:45 08/04/19 20:02 I have reviewed the current psychotropics carefully including drug interactions. Risk benefit ratio favors no change other than as noted in my dictated progress note. Diagnosis: Problems: (1) Impulse control disorder (2) Anxiety disorder (3) Major depressive disorder, recurrent episode (4) Urinary tract infection ALEKSANDER REESE MD Aug 04, 2019 20:30
--- NOTE | 2019-08-04 21:17 | PN ---
DATE: 08/04/2019 SUBJECTIVE: The patient is resting flat, comfortably in bed, in no apparent distress. She apparently continued to have loose bowel movement, which was changed twice. The nursing staff states she did better today and ate some of her breakfast, took her medication. PHYSICAL EXAMINATION: GENERAL: When I examined her, she was pale, but no jaundice, cyanosis or thyromegaly. No jugular venous distention. No limb edema. VITAL SIGNS: Her heart rate was 90, blood pressure was 132/58, temperature was 97.2, respiratory rate was 16, and oxygen saturation was 98% on room air. HEAD, EYES, EARS, NOSE AND THROAT: Showed normocephalic, atraumatic. NECK: Supple. HEART: Showed normal first and second heart sounds. No gallop or murmur. CHEST: Clear to auscultation. No crepitation or rhonchi. ABDOMEN: Distended, soft, nontender. NEUROLOGIC: She was demented, but otherwise all her cranial nerves are intact. She moves extremities without difficulty. Her intake was 3200, no output was recorded. She apparently was found to be retaining urine and she has straight catheterized and about 900 mL of urine was taken out. LABORATORY DATA: Her lab work this morning showed serum sodium of 139, potassium 3.6, chloride 107, bicarbonate 24, anion gap of 8, BUN 8, creatinine 0.7, estimated GFR was 79 mL per minute. Her glucose 131, calcium was 7.9. Her white cell count was 13,200, hemoglobin 13.9, hematocrit 42, MCV 93, and platelet count 223,000. ASSESSMENT: 1. Sepsis with marked leukocytosis. The patient developed diarrhea and her stool came back positive for C. diff colitis. Plan is to continue with oral vancomycin 250 mg 4 times a day. 2. She has also hypokalemia and her IV fluids were changed to D5 half normal with 40 mEq of potassium chloride. 3. She has multiple other medical problems including: A. Hypertension. B. Mitral valve stenosis. C. Sick sinus syndrome. D. Bronchial asthma. E. Recurrent urinary tract infection. Her CT scan done yesterday showed that she has diffuse wall thickening of the distal transverse, descending and rectosigmoid colon consistent with colitis. There is trace amount of pelvic free fluid, likely reactive, hepatic cysts, moderate bilateral hiatal hernia and small bilateral pleural effusion. Her urinary bladder was distended and on straight catheterization, about 900 mL of urine were drained. PLAN: Continue with current plan of management. Repeat her lab works again tomorrow. We will scan her bladder at least twice a day and straight cath her if she is retaining more than 300 mL. AUDIE ALCARAZ MD DR: ALYX/esther JOB#: [id number] / [id number]
--- NOTE | 2019-08-04 22:07 | PN ---
DATE: 08/03/2019 PSYCHIATRIC PROGRESS NOTE This late entry 08/03/2019 covers the elements not covered in my initial note. SUBJECTIVE: I reviewed the patient with nursing staff in the evening of 08/03/2019. The patient remains intermittently anxious, restless, but does redirect. She continues to struggle with diarrhea secondary to Clostridium difficile. MENTAL STATUS EXAM: This is essentially unchanged from prior visit. At times, she is more oriented than others. Insight, judgment, memory is impaired. Mood and affect remains somewhat anxious, labile. LABORATORY DATA: Reviewed. IMPRESSION: Unchanged from initial note. PLAN: No change from initial note. MAN Aimee REESE MD DR: ANUP/esther JOB#: [id number] / [id number]
--- NOTE | 2019-08-04 22:13 | PN ---
DATE: 08/02/2019 PSYCHIATRIC PROGRESS NOTE This late entry 08/02/2019 covers the elements not covered in my initial note. SUBJECTIVE: I met with the patient in the evening of 08/02/2019. The patient was seen in ICU bed 2. The patient is an 84-year-old female who was transferred from [facility] to the ICU per Dr. Lyon on account of urosepsis while she was being stabilized for her psychotic disorder on the [facility]. I have been asked to consult her from a psychiatric standpoint and follow her in the ICU on account of ongoing behavioral dyscontrol. The patient has an extensive family history of bipolar disorder and some of her presentation was consistent with this. [facility] Since being on the unit, the patient is additionally being treated in the ICU for significant C. diff colitis and has a fecal tube with several bowel movements daily. She remains anxious, restless, intermittently agitated, but does have p.r.n. Zyprexa to assist. She complained of being tired as I met with her. No CV, system symptoms on review. Does have diarrhea. MENTAL STATUS EXAM: Oriented to herself and situation. She said she did not want to talk very much, was tired, which is understandable. Speech otherwise low in rate and rhythm, low in volume, coherent, abstraction fair, computation impaired, language function intact, attention span short. Mood and affect somewhat withdrawn. LABORATORY DATA: Reviewed. 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 diff colitis; urosepsis. PLAN: No change from a psychiatric standpoint from initial note. MAN Aimee REESE MD DR: ANUP/esther JOB#: [id number] / [id number]
[2019-08-04 22:46] VITALS: BP 105/43
--- NOTE | 2019-08-04 23:14 | CONS ---
DATE OF CONSULTATION: 08/01/2019 REFERRING PHYSICIAN: Dr. Brown. REASON FOR CONSULTATION: Mental status changes. HISTORY OF PRESENT ILLNESS: This is an 84-year-old right-handed female who was admitted on 07[facility] on account of increasing symptoms of confusion, disorientation and paranoid hallucinations. Neuro consult was requested because of 2-week history of worsening of mental status. She is a resident at [facility], was initially transferred from [facility]. The patient has been depressed and hopeless and helpless. She became very anxious and paranoid. The patient was found by the staff this morning to be very lethargic with some behavioral changes as she refused to take her medications and refusing to eat and drink. Apparently, she had one episode of emesis and diarrhea x 2 this morning. The current blood test revealed elevated white blood cells and serious dropping in the blood pressure to 67-40. The patient was depressed and anxious. Finally, medical physician was called and decided to transfer the patient to ICU for further evaluation. She denies headaches, visual disturbances, chest pain, shortness of breath or palpitation. PAST MEDICAL HISTORY: Significant for hypertension, sick sinus syndrome required pacemaker implant, asthma, recurrent urinary tract infections and mitral valve stenosis. PAST SURGICAL HISTORY: Significant for permanent pacemaker placement. PAST PSYCHIATRIC HISTORY: Positive for anxiety, depression, and possible bipolar disorder. FAMILY HISTORY: Unobtainable. SOCIAL HISTORY: The patient lives at a residential with her . She denies smoking, alcohol drinking, or illicit drug use. REVIEW OF SYSTEMS: A 10-point review of system was performed as mentioned above in history of present illness. PHYSICAL EXAMINATION: GENERAL: Well-developed, well-nourished female, not in acute distress. She weighs 65 kilos. VITAL SIGNS: Blood pressure was 133/54, respiratory rate 21, pulse is 80, oxygen saturation is 97% on room air. HEENT: Normocephalic, atraumatic, otherwise unremarkable. NECK: Supple. Negative for carotid bruit, lymphadenopathy or thyromegaly. LUNGS: Clear to A and P. CARDIOVASCULAR: Regular rate and rhythm, normal S1, S2. There is no S3, S4 or murmur. ABDOMEN: Soft. Bowel sounds positive. EXTREMITIES: Negative for cyanosis, clubbing, or pitting edema. NEUROLOGICAL: MENTAL STATUS: The patient is alert to herself and she knows she is in the hospital. The speech is fluent. There is no language dysfunction. Memory, judgment, and abstract thinking are fair. The patient denies hallucination with delusion at this time. CRANIAL NERVES: Visual anderson. The pupils are reactive to light and accommodation. The extraocular movements are intact. There is no nystagmus. There is no facial motor or sensory deficit. Hearing is intact bilaterally. The palate is elevated symmetrically. Sternocleidomastoid muscles are powerful bilaterally. The patient shrugs her shoulders symmetrically, protrudes her tongue in the midline without fasciculation or atrophy. MOTOR: No focal muscle bulk was seen. The tone is normal. The strength is 4/5 throughout. SENSORY: Reveal normal pinprick, light touch, vibratory and position senses. DEEP TENDON REFLEXES: Deep tendon reflexes were asymmetric and hypoactive with absent Achilles responses. GAIT: The patient uses a wheelchair for ambulation. LABORATORY DATA: CBC revealed white blood cells of 16,600, hemoglobin 15.4, hematocrit 46.8, platelet count 249,000. Chemistry revealed sodium of 143, potassium of 3.7, chloride 106, CO2 of 28, BUN 22, creatinine 1.1, glucose 159, calcium 8.6. UA test was performed on 07/27/2019 and revealed evidence of urinary tract infections based on the culture, she was placed on Levaquin. Diagnostic chest x-ray revealed mild pulmonary edema and possible superimposed infection process. CT of the abdomen and pelvis revealed colitis and hepatic cysts, hiatal hernia and small bilateral pleural effusion. IMPRESSION: 1. Slowly progressive mental status changes with recent worsening consistent with acute encephalopathy due to possible underlying systemic infections with significant hypotension. This finding may have contributed to the current mental status changes. 2. Multiple medical problems include mitral valve stenosis, history of hypertension, recurrent urinary tract infections and status post pacemaker placement. PLAN: 1. Aggressive treatment for systemic infection, probably urinary tract infections. 2. Watch for progressive pulmonary edema. 3. Treat the underlying psychiatric disorder. M Kamlesh MIGUEL MD DR: MARA/esther JOB#: [id number] / [id number]
[2019-08-05] MEDS: ACETAMINOPHEN 325 MG TABLET PO PRN (03:47)
[2019-08-05 05:49] VITALS: BP 137/55
--- NOTE | 2019-08-05 05:55 | NUR ---
Shift Note: Pt is a/o to self and place, requires reorientation often throughout the night, pt is showing signs of paranoia and anxiousness, thought there was a fire and she was in danger, zyprexa appears to be effective in easing paranoia and anxiousness. 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 Pt successful in taking oral medications, crushed in pudding seems to work nicely for this patient. Pt continues to have abdominal pain and ongoing incontinent diarrhea stools, bottom is pink and tender when cleaning, barrier cream applied and tylenol given for abdominal pain, pt expressed some relief of pain. Advised patient she would be moving rooms this morning, pt verbalized understanding. Pt anxious to get out of bed and move around, advised we would talk to physician and order PT/OT evaluation to see if it is safe, pt verbalized understanding.
[2019-08-05 06:07] LABS: HEMATOCRIT 41.3 % (36.0-47.0); HEMOGLOBIN 13.4 g/dL (12.0-15.5); RED BLOOD COUNT 4.45 x10^6/uL (3.50-5.40); RED CELL DISTRIBUTION WIDTH 14.6 % (11.5-14.5); WHITE BLOOD COUNT 10.1 x10^3/uL (4.0-11.0)
[2019-08-05 06:21] LABS: ALBUMIN 1.7 g/dL (3.4-5.0); ALBUMIN/GLOBULIN RATIO 0.5 (1.0-1.7); CALCIUM 7.8 mg/dL (8.5-10.1); CREATININE 0.7 mg/dL (0.6-1.0); GFR 79.3; POTASSIUM 3.9 mmol/L (3.5-5.1); TOTAL BILIRUBIN 0.3 mg/dL (0.2-1.0); TOTAL PROTEIN 5.1 g/dL (6.4-8.2)
[2019-08-05] MEDS: amLODIPine BESYLATE 10 MG TABLET PO SCH (08:24)
[2019-08-05] MEDS: FOLIC ACID 1 MG TABLET PO SCH (08:24)
[2019-08-05] MEDS: POTASSIUM CHLORIDE 20 MEQ TABLET.ER. PO SCH (08:24)
[2019-08-05] MEDS: MULTIVITAMIN with MINERAL TABLET. PO SCH (08:25)
[2019-08-05] MEDS: LOSARTAN 50 MG TABLET. PO SCH (08:26)
[2019-08-05] MEDS: FLUoxetine HCL 10 MG CAPSULE PO SCH (08:27)
[2019-08-05] MEDS: THIAMINE 100 MG TABLET. PO SCH (08:28)
[2019-08-05] MEDS: QUEtiapine 25 MG TABLET. PO SCH ×3 (08:28→21:19)
[2019-08-05] MEDS: LACTOBACILLUS RHAMNOSUS GG 1 CAPSULE. PO SCH ×2 (08:28→21:19)
[2019-08-05] MEDS: clonazePAM 0.5 MG TABLET PO SCH ×3 (08:29→21:19)
[2019-08-05] MEDS: VANCOMYCIN 125 MG/2.5 ML ORAL SOLUTION. PO SCH ×4 (08:31→21:19)
--- NOTE | 2019-08-05 08:44 | PN ---
DATE: 08/04/2019 SUBJECTIVE: The patient denies any new neurological complaints, but she continues to complain of lower abdominal pain. The patient was restless last night. She denies headaches, visual disturbances, nausea, vomiting, weakness, or paresthesia. She continues to have bouts of diarrhea. OBJECTIVE: GENERAL: Well-developed, well-nourished female, not in acute distress. VITAL SIGNS: Blood pressure 132/56, respiratory rate 16, pulse is 90 regular, temperature 97.2, and oxygen saturation is 98% on room air. HEENT: Normocephalic, atraumatic, otherwise unremarkable. NECK: Supple. Negative for carotid bruit, lymphadenopathy, or thyromegaly. LUNGS: Clear to A and P. CARDIOVASCULAR: Regular rate and rhythm, normal S1, S2. ABDOMEN: Soft, but tenderness in the lower abdomen. EXTREMITIES: Negative for cyanosis, clubbing, or edema. NEUROLOGICAL EXAM: Mental Status: The patient is alert and oriented to place and herself. Speech is fluent. There is no language dysfunction. Memory, judgment, and abstract thinking are fair. The patient denies hallucination or delusion. Cranial nerves are grossly intact. No focal motor or sensory deficit. The strength was 4/5 throughout. Sensory examination revealed normal pinprick and light touch senses throughout. Deep tendon reflexes were symmetric and hypoactive with absent Achilles responses. Gait not tested. LABORATORY DATA: CBC revealed white blood cells of 13.2 thousand; hemoglobin is 13.9, hematocrit 42.5, platelet count 223,000. Chemistry revealed sodium of 139, potassium of 3.6, chloride 107, CO2 of 24, BUN 8, creatinine 0.7, glucose is 131, and calcium 7.9. IMPRESSION: 1. Acute encephalopathy, probably aggravated by underlying systemic infections - urinary tract infections. 2. C. difficile colitis. 3. Multiple medical problems include hypertension, depression, anxiety, and possible bipolar disorder, status post pacemaker placement for sick sinus syndrome. RECOMMENDATIONS: Continue with current medical and psychiatric care. The patient is neurologically stable. M Kamlesh MIGUEL MD DR: MARA/esther JOB#: [id number] / [id number]
[2019-08-05 11:30] VITALS: BP 172/64
--- NOTE | 2019-08-05 15:33 | PN ---
DATE: 08/05/2019 SUBJECTIVE: The patient is an 84-year-old female patient, who was transferred from [facility] on account of having being septic and eventually was diagnosed with C. diff colitis. CT scan showed that she has diffuse wall thickening of the distal transverse, descending and rectosigmoid colon consistent with colitis. She has trace amount of pelvic free fluid, likely reactive, moderate hiatal hernia. The patient continued to have recurrent bouts of loose bowel movement. She refused sometimes oral vancomycin, although she takes it once it is disguised. PHYSICAL EXAMINATION: GENERAL: When I examined her this afternoon, she was resting flat, comfortably in bed, in no apparent respiratory distress. No pallor, jaundice, cyanosis or thyromegaly. No jugular venous distention. No limb edema. VITAL SIGNS: Her heart rate was 70, blood pressure was 170/64, temperature was 97.8, respiratory rate was 18 and oxygen saturation was 97%. HEAD, EYES, EARS, NOSE AND THROAT: Showed normocephalic, atraumatic. NECK: Supple. HEART: Showed normal first and second heart sounds. No gallop, rub or murmur. CHEST: Clear to auscultation. No crepitation or rhonchi. ABDOMEN: Distended, soft, nontender. No guarding or rigidity. No organomegaly. All hernial orifice intact. Bowel sounds normal. NEUROLOGIC: She was awake, alert, but confused. All cranial nerves intact. She moves extremities without difficulty; however, she is mostly bedbound. She has an indwelling Link catheter. Her intake over the last 24 hours was 1700, output was 1400. LABORATORY DATA: As of this morning, her white cell count is 10,000, hemoglobin 13, hematocrit 41, MCV 93, and platelet count 239,000. Serum sodium was 141, potassium 3.9, chloride 109, bicarbonate 23, anion gap of 9, BUN 4, creatinine 0.7, estimated GFR was 79 mL per minute. Her glucose 120, calcium was 7.8. Total bilirubin, AST, ALT, alkaline phosphatase were normal. Total protein was 5.1, albumin was 1.7. ASSESSMENT: 1. Sepsis with marked leukocytosis. The patient developed diarrhea and her stool came back positive for Clostridium difficile colitis with the plan is to continue with oral vancomycin at 125 mg 4 times a day. 2. She has hypokalemia and her intravenous fluids were changed to D5 half normal with 40 mEq potassium. Her potassium today is much improved at 3.9. 3. Other medical problems include: A. Hypertension. B. Mitral valve stenosis. C. Sick sinus syndrome. D. Bronchial asthma. E. Recurrent urinary tract infection. PLAN: To continue with oral vancomycin, continue for indwelling catheter for now. I will add Flagyl 500 mg IV every 8 hours. She sometimes refused her oral and we will decide on further management accordingly. AUDIE ALCARAZ MD DR: ALYX/esther JOB#: [id number] / [id number]
[2019-08-05] MEDS: POTASSIUM CL 40MEQ D5-0.45NACL 1,000 ML IV SCH (16:07)
[2019-08-05 16:23] VITALS: BP 133/63
--- NOTE | 2019-08-05 16:26 | NUR ---
Patient is alert and oriented to self and situation. Patient is able to make wants and needs known and able to verbalize understanding of others. Patient's speech is clear. Negative moods observed this shift, refused to cooperate with staff at times while staff was changing patient's incontinent chux covered in bowel movement. Patient has had 9 episodes of incontinent small loose, watery and mucus stools this shift. Patient has refused to assist staff when it comes to changing positions and requires frequent verbal queing for turning left and right. Patient refused to eat meals this shift, only taking 1-2 bites a meal, stating " i can't do it i don't know how." When staff attempted to assist her with eating, patient refused help and stated "i don't need you to do that." Patient has also being making statements saying " you all lied to me, you all told me things and are talking about me. I know you are talking about me." Patient has received 2 prn olanzapine 2.5mg tab this shift for anxiety/ agitation.
--- NOTE | 2019-08-05 20:02 | PDOC ---
Exam Note: Jay Note: Please also refer to the separate dictated note~for this date of service dictated separately.~Patient seen individually. Discussed the patient with Nursing staff reviewed the chart.~Reviewed interim history and current functioning. Reviewed vital signs,~Labs/ Radiology~and current medications noted below. Continue current treatment with the changes noted in the dictated addendum note Assessment: Vital Signs/I&O: Vital Signs Date Time Temp Pulse Resp B/P (MAP) Pulse Ox O2 Delivery O2 Flow Rate FiO2 08/05/19 16:23 98.4 81 20 133/63 (86) 96 Room Air I & O 08/04/19 08/04/19 08/05/19 15:00 23:00 07:00 Intake Total 390 ml 1509 ml 896 ml Output Total 1200 ml 800 ml Balance 390 ml 309 ml 96 ml Labs: Laboratory Tests Test 08/05/19 05:40 White Blood Count 10.1 x10^3/uL (4.0-11.0) Red Blood Count 4.45 x10^6/uL (3.50-5.40) Hemoglobin 13.4 g/dL (12.0-15.5) Hematocrit 41.3 % (36.0-47.0) Mean Corpuscular Volume 93 fL (79-100) Mean Corpuscular Hemoglobin 30 pg (25-35) Mean Corpuscular Hemoglobin Concent 33 g/dL (31-37) Red Cell Distribution Width 14.6 % (11.5-14.5) H Platelet Count 239 x10^3/uL (140-400) Sodium Level 141 mmol/L (136-145) Potassium Level 3.9 mmol/L (3.5-5.1) Chloride Level 109 mmol/L (98-107) H Carbon Dioxide Level 23 mmol/L (21-32) Anion Gap 9 (6-14) Blood Urea Nitrogen 4 mg/dL (7-20) L Creatinine 0.7 mg/dL (0.6-1.0) Estimated GFR (Cockcroft-Gault) 79.3 BUN/Creatinine Ratio 6 (6-20) Glucose Level 120 mg/dL (70-99) H Calcium Level 7.8 mg/dL (8.5-10.1) L Total Bilirubin 0.3 mg/dL (0.2-1.0) Aspartate Amino Transferase (AST) 16 U/L (15-37) Alanine Aminotransferase (ALT) 15 U/L (14-59) Alkaline Phosphatase 74 U/L (46-116) Total Protein 5.1 g/dL (6.4-8.2) L Albumin 1.7 g/dL (3.4-5.0) L Albumin/Globulin Ratio 0.5 (1.0-1.7) L Current Medications: Meds: Current Medications Medications (Trade) Dose Ordered Sig/Gian Route PRN Reason Start Time Stop Time Status Last Admin Dose Admin Metronidazole 100 ml @ 100 mls/hr Q8HRS IV 08/05/19 14:00 08/05/19 14:40 I have reviewed the current psychotropics carefully including drug interactions. Risk benefit ratio favors no change other than as noted in my dictated progress note. Diagnosis: Problems: (1) Impulse control disorder (2) Anxiety disorder (3) Major depressive disorder, recurrent episode (4) Urinary tract infection ALEKSANDER REESE MD Aug 05, 2019 20:02
[2019-08-05 20:20] VITALS: BP 153/72
--- NOTE | 2019-08-05 20:33 | PN ---
DATE: 08/04/2019 PSYCHIATRIC PROGRESS NOTE This late entry 08/04/2019 covers elements not covered in my initial note. SUBJECTIVE: I met with the patient evening of 08/04/2019 in ICU bed 2. Per nursing report, she has been paranoid that men were going to take her. She has had some urinary retention and abdominal pain, as a consequence of this. She remains paranoid, suspicious, at times somewhat labile. REVIEW OF SYSTEMS: Positive for tiredness and the above pain. No CV, GI system symptoms on review. MENTAL STATUS EXAMINATION: Oriented to herself and situation. Speech is coherent, has some latency. Abstraction fair, computation impaired, language function intact, attention span short. Mood and affect somewhat labile. LABORATORY DATA: Reviewed. IMPRESSION: Unchanged from initial note. PLAN: Start Zyprexa 2.5 mg q. 2 hours p.r.n. psychosis, agitation, max 10 mg in 24 hours. Rest unchanged. ALEKSANDER REESE MD DR: ANUP/esther JOB#: [id number] / [id number]
[2019-08-05] MEDS: MIRTAZAPINE ODT 15 MG TAB.RAPDIS. PO SCH (21:00)
[2019-08-05] MEDS: traZODone 50 MG TABLET. PO SCH (21:19)
--- NOTE | 2019-08-05 22:49 | PN ---
DATE: 08/04/2019 SUBJECTIVE: The patient denies any new neurological complaints, but she continues to complain of abdominal pain. The patient was restless last night. She denies headaches, visual disturbances, nausea, vomiting, weakness or paresthesia. She continues to have bouts of diarrhea. OBJECTIVE: GENERAL: Well-developed, well-nourished female, not in acute distress. VITAL SIGNS: Blood pressure ____, respiratory rate 16, pulse is 90 regular, temperature 97.2, oxygen saturation 98% on room air. HEENT: Normocephalic, atraumatic, otherwise unremarkable. NECK: Supple. Negative for carotid bruit, lymphadenopathy or thyromegaly. LUNGS: Clear to A and P. CARDIOVASCULAR: Regular rate and rhythm, normal S1, S2. ABDOMEN: Soft, but tenderness in the lower abdomen. EXTREMITIES: Negative for cyanosis, clubbing or pitting edema. NEUROLOGICAL EXAM: Mental Status: The patient is alert and oriented to place and herself. Speech is fluent. There is no language dysfunction. Memory, judgment and abstract thinking are fair. The patient denies hallucination or delusion. Cranial nerves are grossly intact. No focal motor or sensory deficit. The strength was 4/5 throughout. Sensory examination revealed normal pinprick and light touch senses throughout. Deep tendon reflexes were symmetric and hypoactive with absent Achilles responses. Gait not tested. LABORATORY DATA: CBC revealed white blood cells of 13.3, hemoglobin is 13.9, hematocrit 42.5, platelet count 223,000. Chemistry revealed sodium of 139, potassium 3.6, chloride 107, CO2 of 24, BUN 8, creatinine 0.7, glucose is 131, calcium 7.9. IMPRESSION: 1. Acute encephalopathy, probably aggravated by underlying systemic infections -- urinary tract infections. 2. Clostridium difficile colitis. 3. Multiple medical problems include hypertension. 4. Depression, anxiety and possible bipolar disorder, status post pacemaker placement for sick sinus syndrome. RECOMMENDATIONS: Continue with current medical and psychiatric care. The patient is neurologically stable. M Kamlesh MIGUEL MD DR: MARA/esther JOB#: [id number] / [id number]
[2019-08-06 01:24] VITALS: BP 125/60
[2019-08-06] MEDS: POTASSIUM CL 40MEQ D5-0.45NACL 1,000 ML IV SCH ×2 (01:48→18:18)
--- NOTE | 2019-08-06 06:14 | NUR ---
Shift Note: Pt is a/o to self, VSS, no c/o n/v, pt cont to c/o abdominal cramping, pt continues to have several diarrhea stools throughout the night, bottom is pink, barrier cream applied each time. Link draining clear yellow urine (1200 mls out this shift). IV fluids infusing as ordered. Pt attempting to get out of bed this am.
[2019-08-06 06:15] VITALS: BP 113/50
[2019-08-06 06:43] LABS: CALCIUM 7.9 mg/dL (8.5-10.1); CREATININE 0.7 mg/dL (0.6-1.0); GFR 79.3; POTASSIUM 4.1 mmol/L (3.5-5.1)
[2019-08-06] MEDS: LACTOBACILLUS RHAMNOSUS GG 1 CAPSULE. PO SCH ×2 (08:40→20:59)
[2019-08-06] MEDS: THIAMINE 100 MG TABLET. PO SCH (08:41)
[2019-08-06] MEDS: LOSARTAN 50 MG TABLET. PO SCH (08:41)
[2019-08-06] MEDS: QUEtiapine 25 MG TABLET. PO SCH ×3 (08:41→21:00)
[2019-08-06] MEDS: clonazePAM 0.5 MG TABLET PO SCH ×3 (08:41→21:00)
[2019-08-06] MEDS: POTASSIUM CHLORIDE 20 MEQ TABLET.ER. PO SCH (08:41)
[2019-08-06] MEDS: amLODIPine BESYLATE 10 MG TABLET PO SCH (08:41)
[2019-08-06] MEDS: FOLIC ACID 1 MG TABLET PO SCH (08:43)
[2019-08-06] MEDS: MULTIVITAMIN with MINERAL TABLET. PO SCH (08:43)
[2019-08-06] MEDS: FLUoxetine HCL 10 MG CAPSULE PO SCH (08:43)
[2019-08-06] MEDS: VANCOMYCIN 125 MG/2.5 ML ORAL SOLUTION. PO SCH ×4 (08:43→20:59)
--- NOTE | 2019-08-06 10:26 | PN ---
DATE: 08/05/2019 PSYCHIATRIC PROGRESS NOTE This late entry 08/05/2019 covers elements not covered in my initial note. SUBJECTIVE: I met with the patient in the evening in bed [address]. Per nursing staff, the patient has been paranoid, suspicious, anxious at times somewhat dismissive of staff and this was evident even as I met with her individually. She did seem to recognize me at times. Does complain of tiredness and ongoing diarrhea. No CV, system symptoms on review. MENTAL STATUS EXAM: Oriented to herself and situation. Speech has some latency, often responses monosyllabic, coherent. Abstraction fair, computation impaired, language function intact. Mood and affect remains labile. LABORATORY DATA: Reviewed. IMPRESSION: Unchanged from initial note. PLAN: No change from initial note. When she is medically stabilized, we will reassess whether she needs to be back [facility]. MAN Aimee REESE MD DR: ANUP/esther JOB#: [id number] / [id number]
[2019-08-06 11:14] VITALS: BP 119/53
--- NOTE | 2019-08-06 11:41 | PN ---
DATE: 08/05/2019 SUBJECTIVE: The patient continues to have a bout of diarrhea and abdominal pain. She denies headaches, visual disturbances, chest pain, shortness of breath or palpitation. OBJECTIVE: GENERAL: Well-developed, well-nourished female, not in acute distress. VITAL SIGNS: Blood pressure 153/72, respiratory rate 20, pulse is 82, oxygen saturation 97% on room air, temperature 97.9. HEENT: Normocephalic, atraumatic, otherwise unremarkable. NECK: Supple. Negative for carotid bruit, lymphadenopathy or thyromegaly. LUNGS: With diminished breath sounds. CARDIOVASCULAR: Regular rhythm, normal S1, S2. ABDOMEN: Soft. Bowel sounds positive. There is tenderness over the mid and lower abdomen. There is no palpable mass or organomegaly. EXTREMITIES: Negative for cyanosis, clubbing or pitting edema. NEUROLOGICAL EXAM: Mental Status: The patient is alert and oriented to herself and place. Speech is fluent. There is no language dysfunction. Memory, judgment and abstract thinking are fair. The patient denies hallucination or delusion. Cranial nerves are grossly intact. The patient moves her upper and lower extremities equally. Sensory examination revealed no focal sensory deficit. Deep tendon reflexes were symmetric and hypoactive with absent Achilles responses. Gait not tested. LABORATORY DATA: CBC revealed white blood cells of 10.1, hemoglobin 13.4, hematocrit 41.3, platelet count 239. Chemistry revealed sodium of 141, potassium 3.9, chloride 109, CO2 of 23, BUN 4, creatinine 0.7, glucose is 120 and calcium 7.8. Total protein and albumin are low. IMPRESSION: 1. Acute encephalopathy -- improved, with intermittent psychosis. 2. Urinary tract infections. 3. Clostridium difficile colitis. 4. Hypertension, depression, anxiety, and possible bipolar disorder. RECOMMENDATIONS: Continue with current medical and psychiatric care. The patient is neurologically stable. M Kamlesh MIGUEL MD DR: MARA/esther JOB#: [id number] / [id number]
[2019-08-06 18:21] VITALS: BP 134/85
--- NOTE | 2019-08-06 20:18 | PDOC ---
Exam Note: Jay Note: Please also refer to the separate dictated note~for this date of service dictated separately.~Patient seen individually. Discussed the patient with Nursing staff reviewed the chart.~Reviewed interim history and current functioning. Reviewed vital signs,~Labs/ Radiology~and current medications noted below. Continue current treatment with the changes noted in the dictated addendum note Assessment: Vital Signs/I&O: Vital Signs Date Time Temp Pulse Resp B/P (MAP) Pulse Ox O2 Delivery O2 Flow Rate FiO2 08/06/19 18:21 97.5 78 16 134/85 (101) 95 Room Air I & O 08/05/19 08/05/19 08/06/19 15:00 23:00 07:00 Intake Total 928 ml 340 ml 1208 ml Output Total 1900 ml 1200 ml Balance 928 ml -1560 ml 8 ml Labs: Laboratory Tests Test 08/06/19 06:20 Sodium Level 140 mmol/L (136-145) Potassium Level 4.1 mmol/L (3.5-5.1) Chloride Level 108 mmol/L (98-107) H Carbon Dioxide Level 25 mmol/L (21-32) Anion Gap 7 (6-14) Blood Urea Nitrogen 3 mg/dL (7-20) L Creatinine 0.7 mg/dL (0.6-1.0) Estimated GFR (Cockcroft-Gault) 79.3 Glucose Level 129 mg/dL (70-99) H Calcium Level 7.9 mg/dL (8.5-10.1) L Current Medications: I have reviewed the current psychotropics carefully including drug interactions. Risk benefit ratio favors no change other than as noted in my dictated progress note. Diagnosis: Problems: (1) Impulse control disorder (2) Anxiety disorder (3) Major depressive disorder, recurrent episode (4) Urinary tract infection ALEKSANDER REESE MD Aug 06, 2019 20:18
[2019-08-06] MEDS: ENOXAPARIN 40 MG/0.4 ML SYRINGE. SQ SCH (20:59)
[2019-08-06] MEDS: traZODone 50 MG TABLET. PO SCH (21:00)
[2019-08-06] MEDS: MIRTAZAPINE ODT 15 MG TAB.RAPDIS. PO SCH (21:00)
[2019-08-06 23:28] VITALS: BP 122/63
--- NOTE | 2019-08-07 00:36 | PN ---
DATE: 08/06/2019 SUBJECTIVE: The patient is resting flat in bed, no apparent distress. She is definitely much improved. According to nursing staff, she is eating more and feeding herself, although she continued to have multiple loose bowel movements. We did add Flagyl IV. PHYSICAL EXAMINATION: GENERAL: When I examined her, she was pale, but no jaundice, cyanosis or thyromegaly. No jugular venous distention. No lower limb edema. VITAL SIGNS: Her heart rate was 76, blood pressure was 119/53, temperature was 97.3, respiratory rate 20, and oxygen saturation was 95% on room air. HEAD, EYES, EARS, NOSE AND THROAT: Showed normocephalic, atraumatic. NECK: Supple. HEART: Showed normal first and second heart sounds. No gallop or murmur. CHEST: Clear to auscultation. No crepitation or rhonchi. ABDOMEN: Distended, soft, nontender. NEUROLOGIC: She was demented, but without any obvious lateralizing sign. All cranial nerves intact. She moves extremities without difficulty, although she is mostly bed bound. Her intake over the last 24 hours was 2800, output was 2000. LABORATORY DATA: As of this morning showed a white cell count of 10,000, hemoglobin 13, hematocrit 41, MCV 93, and platelet count 239,000. Serum sodium 140, potassium 4.1, chloride 108, bicarbonate 25, anion gap of 7, BUN 3, creatinine 0.7, estimated GFR was 79 mL per minute. Her glucose 129, calcium was 7.9. ASSESSMENT: 1. Sepsis with marked leukocytosis. The patient developed diarrhea and her stool came back positive for Clostridium difficile toxins for which she continued to be on oral vancomycin as well as IV Flagyl. 2. Hypokalemia, resolved. 3. She has multiple other medical problems including: A. Hypertension. B. Mitral valve stenosis. C. Sick sinus syndrome. D. Bronchial asthma. E. Recurrent urinary tract infection. PLAN: To continue with IV Flagyl and oral vancomycin. Continue with IV fluid, continue with nutritional support. Once her diarrhea subsides, we will start the process of physical and occupational therapy. AUDIE ALCARAZ MD DR: ALYX/esther JOB#: [id number] / [id number]
--- NOTE | 2019-08-07 05:55 | NUR ---
Shift Note: Pt is a/o to self, VSS, no c/o pain or n/v at this time, IV fluids infusing as ordered, PT to work with patient, only one small incontinent stool during interface developer, pt requires pills to be crushed in pudding for compliance.
[2019-08-07 06:10] VITALS: BP 132/70
[2019-08-07 06:19] LABS: CALCIUM 7.9 mg/dL (8.5-10.1); CREATININE 0.7 mg/dL (0.6-1.0); GFR 79.3; POTASSIUM 4.1 mmol/L (3.5-5.1)
[2019-08-07] MEDS: VANCOMYCIN 125 MG/2.5 ML ORAL SOLUTION. PO SCH ×4 (07:47→22:04)
[2019-08-07] MEDS: amLODIPine BESYLATE 10 MG TABLET PO SCH (07:47)
[2019-08-07] MEDS: LACTOBACILLUS RHAMNOSUS GG 1 CAPSULE. PO SCH ×2 (07:48→22:02)
[2019-08-07] MEDS: THIAMINE 100 MG TABLET. PO SCH (07:48)
[2019-08-07] MEDS: POTASSIUM CHLORIDE 20 MEQ TABLET.ER. PO SCH (07:48)
[2019-08-07] MEDS: LOSARTAN 50 MG TABLET. PO SCH (07:48)
[2019-08-07] MEDS: MULTIVITAMIN with MINERAL TABLET. PO SCH (07:48)
[2019-08-07] MEDS: FOLIC ACID 1 MG TABLET PO SCH (07:49)
[2019-08-07] MEDS: FLUoxetine HCL 10 MG CAPSULE PO SCH (07:49)
[2019-08-07] MEDS: clonazePAM 0.5 MG TABLET PO SCH ×3 (07:49→22:03)
[2019-08-07] MEDS: QUEtiapine 25 MG TABLET. PO SCH ×3 (07:49→22:03)
[2019-08-07] MEDS: POTASSIUM CL 40MEQ D5-0.45NACL 1,000 ML IV SCH ×2 (08:35→13:50)
--- NOTE | 2019-08-07 09:51 | NUR ---
PT alert to self. PT is unable to verbalize understanding of POC. PT had to be coaxed into taking medications. Dung HARE
[2019-08-07 10:48] VITALS: BP 119/63
[2019-08-07 15:16] VITALS: BP 116/63
[2019-08-07 19:49] VITALS: BP 120/64
--- NOTE | 2019-08-07 20:28 | PDOC ---
Exam Note: Jay Note: Please also refer to the separate dictated note~for this date of service dictated separately.~Patient seen individually. Discussed the patient with Nursing staff reviewed the chart.~Reviewed interim history and current functioning. Reviewed vital signs,~Labs/ Radiology~and current medications noted below. Continue current treatment with the changes noted in the dictated addendum note Assessment: Vital Signs/I&O: Vital Signs Date Time Temp Pulse Resp B/P (MAP) Pulse Ox O2 Delivery O2 Flow Rate FiO2 08/07/19 15:16 97.8 75 20 116/63 (80) 95 Room Air I & O 08/06/19 08/06/19 08/07/19 15:00 23:00 07:00 Intake Total 1520 ml 340 ml 1811 ml Output Total 975 ml 550 ml Balance 1520 ml -635 ml 1261 ml Labs: Laboratory Tests Test 08/07/19 05:53 Sodium Level 140 mmol/L (136-145) Potassium Level 4.1 mmol/L (3.5-5.1) Chloride Level 107 mmol/L (98-107) Carbon Dioxide Level 24 mmol/L (21-32) Anion Gap 9 (6-14) Blood Urea Nitrogen 5 mg/dL (7-20) L Creatinine 0.7 mg/dL (0.6-1.0) Estimated GFR (Cockcroft-Gault) 79.3 Glucose Level 136 mg/dL (70-99) H Calcium Level 7.9 mg/dL (8.5-10.1) L Current Medications: Meds: Current Medications Medications (Trade) Dose Ordered Sig/Gian Route PRN Reason Start Time Stop Time Status Last Admin Dose Admin Enoxaparin Sodium (Lovenox 40mg Syringe) 40 mg Q24H SQ 08/06/19 21:00 08/06/19 20:59 I have reviewed the current psychotropics carefully including drug interactions. Risk benefit ratio favors no change other than as noted in my dictated progress note. Diagnosis: Problems: (1) Impulse control disorder (2) Anxiety disorder (3) Major depressive disorder, recurrent episode (4) Urinary tract infection ALEKSANDER REESE MD Aug 07, 2019 20:28
--- NOTE | 2019-08-07 20:36 | PN ---
DATE: 08/07/2019 SUBJECTIVE: The patient is resting flat in bed comfortably, in no apparent distress. According to nursing staff, she is now eating more. She has managed to get out of the bed and had at least 2 episodes of loose bowel movements, which is obviously much less than before. PHYSICAL EXAMINATION: GENERAL: When I examined her today, she looked pale, not jaundiced, cyanosed or thyromegaly. No jugular venous distention. No lower limb edema. VITAL SIGNS: Her heart rate was 68, blood pressure was 119/63, temperature was 97.5, respiratory rate was 18 and oxygen saturation was 95%. HEAD, EYES, EARS, NOSE AND THROAT: Normocephalic, atraumatic. NECK: Supple. HEART: Showed normal first and second heart sounds. No gallop or murmur. CHEST: Clear to auscultation. No crepitation or rhonchi. ABDOMEN: Distended, soft, nontender. NEUROLOGIC: She is demented, but without any obvious lateralizing sign. All her cranial nerves intact. She moves extremities without difficulty, although she is currently mostly bedbound, chair bound. Her intake over the last 24 hours was 2475, output 3100. LABORATORY DATA: Her serum sodium 140, potassium 4.1, chloride 107, bicarbonate 24, anion gap of 9, BUN 5, creatinine 0.7, estimated GFR was 79 mL per minute. Her glucose 136, calcium was 7.9. Her white cell count was 10,000, hemoglobin 13, hematocrit 41, MCV 93, and platelet count 239,000. ASSESSMENT: 1. Sepsis with marked leukocytosis and Clostridium difficile colitis for which she is on both oral vancomycin and IV Flagyl. 2. Hypokalemia, resolved. 3. She has also multiple other medical problems including: A. Hypertension. B. Mitral valve stenosis. C. Sick sinus syndrome. D. Bronchial asthma. E. Recurrent urinary tract infection. F. She has also impulse control disorder; anxiety disorder, major depressive disorder with recurrent episodes. AUDIE ALCARAZ MD DR: ALYX/esther JOB#: [id number] / [id number]
[2019-08-07] MEDS: MIRTAZAPINE ODT 15 MG TAB.RAPDIS. PO SCH (22:02)
[2019-08-07] MEDS: traZODone 50 MG TABLET. PO SCH (22:03)
[2019-08-07] MEDS: ENOXAPARIN 40 MG/0.4 ML SYRINGE. SQ SCH (22:04)
[2019-08-07 22:27] VITALS: BP 98/62
--- NOTE | 2019-08-08 00:21 | PN ---
DATE: 08/06/2019 PSYCHIATRIC PROGRESS NOTE This late entry 08/06/2019 covers elements not covered in my initial note. SUBJECTIVE: I met with the patient evening of 08/06/2019, room 125, 1 [address]. Per nursing report, the patient remains somewhat withdrawn, has a rectal tube, still having diarrhea, being treated for C. diff, somewhat paranoid, isolative, withdrawn at times. REVIEW OF SYSTEMS: Positive for tiredness. No CV, or pulmonary system symptoms on review. Does have the diarrhea. MENTAL STATUS EXAM: Oriented to herself and situation. Speech has some latency, coherent. Abstraction fair, computation impaired, language function intact. Mood and affect is withdrawn. LABORATORY DATA: Reviewed. IMPRESSION: Unchanged from initial note. PLAN: No change from initial note. MAN Aimee REESE MD DR: ANUP/esther JOB#: [id number] / [id number]
[2019-08-08 05:56] VITALS: BP 111/67
[2019-08-08 06:12] LABS: ALBUMIN 1.8 g/dL (3.4-5.0); ALBUMIN/GLOBULIN RATIO 0.6 (1.0-1.7); CALCIUM 7.7 mg/dL (8.5-10.1); CREATININE 0.6 mg/dL (0.6-1.0); GFR 94.8; POTASSIUM 4.2 mmol/L (3.5-5.1); TOTAL BILIRUBIN 0.2 mg/dL (0.2-1.0); TOTAL PROTEIN 4.8 g/dL (6.4-8.2)
[2019-08-08 06:37] LABS: HEMOGLOBIN 15.3 g/dL (12.0-15.5); RED BLOOD COUNT 5.02 x10^6/uL (3.50-5.40); RED CELL DISTRIBUTION WIDTH 14.4 % (11.5-14.5); WHITE BLOOD COUNT 9.3 x10^3/uL (4.0-11.0)
[2019-08-08] MEDS: LACTOBACILLUS RHAMNOSUS GG 1 CAPSULE. PO SCH ×2 (10:14→21:12)
[2019-08-08] MEDS: VANCOMYCIN 125 MG/2.5 ML ORAL SOLUTION. PO SCH ×4 (10:14→21:00)
[2019-08-08] MEDS: MULTIVITAMIN with MINERAL TABLET. PO SCH (10:14)
[2019-08-08] MEDS: FLUoxetine HCL 10 MG CAPSULE PO SCH (10:14)
[2019-08-08] MEDS: FOLIC ACID 1 MG TABLET PO SCH (10:15)
[2019-08-08] MEDS: LOSARTAN 50 MG TABLET. PO SCH (10:15)
[2019-08-08] MEDS: clonazePAM 0.5 MG TABLET PO SCH ×3 (10:15→21:13)
[2019-08-08] MEDS: THIAMINE 100 MG TABLET. PO SCH (10:15)
[2019-08-08] MEDS: POTASSIUM CHLORIDE 20 MEQ TABLET.ER. PO SCH (10:15)
[2019-08-08] MEDS: QUEtiapine 25 MG TABLET. PO SCH ×3 (10:16→21:13)
[2019-08-08] MEDS: amLODIPine BESYLATE 10 MG TABLET PO SCH (10:16)
[2019-08-08] MEDS: POTASSIUM CL 40MEQ D5-0.45NACL 1,000 ML IV SCH (10:22)
[2019-08-08 10:44] VITALS: BP 127/70
--- NOTE | 2019-08-08 11:00 | NUR ---
Patient having a good day, appears to be more alert to self and situation. Working with PT and requesting to use the restroom throughout the day. Requires 1-2 person assist with walker to the restroom, remaining continent of bowel today. X2 BMs today but are starting to form, keisha applied to bottom to prevent further breakdown. Patient able to feed self and verbalize wants and needs.
--- NOTE | 2019-08-08 12:29 | PN ---
DATE: 08/07/2019 SUBJECTIVE: The patient stated she does not feel good. She continues to have diarrhea. She is somewhat anxious and depressed. She denies headaches, visual disturbances, nausea, vomiting, chest pain, shortness of breath or palpitation. OBJECTIVE: GENERAL: Well-developed, well-nourished female, not in acute distress. VITAL SIGNS: Blood pressure 120/64, respiratory rate 18, pulse is 86, temperature is 98.2, oxygen saturation 94% on room air. HEENT: Normocephalic, atraumatic, otherwise unremarkable. NECK: Supple. Negative for carotid bruit, lymphadenopathy or thyromegaly. LUNGS: Diminished breath sounds. No wheezing or rales. CARDIOVASCULAR: Regular rate and rhythm, normal S1, S2. ABDOMEN: Soft. Bowel sounds positive. EXTREMITIES: Negative for cyanosis, clubbing or pitting edema. NEUROLOGICAL EXAM: The patient is alert and oriented to place and herself. Speech is fluent, but no language dysfunction. Memory, judgment, and abstract thinking are fair. The patient denies hallucination or delusion. Cranial nerves are intact. No focal motor or sensory deficit. Deep tendon reflexes were symmetric and hypoactive with absent Achilles responses. Gait not tested. IMPRESSION: 1. Acute encephalopathy - improved. 2. Multiple medical problems include hypertension, urinary tract infections and Clostridium difficile colitis. 3. Multiple psychiatric problems include depression and anxiety. RECOMMENDATIONS: Continue with current medical and psychiatric care. M Kamlesh MIGUEL MD DR: MARA/esther JOB#: [id number] / [id number]
[2019-08-08 15:24] VITALS: BP 137/83
--- NOTE | 2019-08-08 17:10 | NUR ---
Pts bed alarm going off, RN entered room. Pt states, " If you guys are going to keep me in here, you need to help me get up!" Rn asked if patient needed to get up, patient responded, "No not right now, you also need to give me food and water! You need to be responsible!" Rn pointed to patients water cup and asked patient what that was, patient responded, "water, but what about food?!" RN told patient food would be in shortly. When Rn brought food in, patient stated she wasn't hungry. RN reminded patient that she said we needed to be responsible for her and patient replied, "I meant sunday and sunday. Whatever this contraption is up here (pointing to call light), its saying some weird things." TV not on.
--- NOTE | 2019-08-08 19:42 | NUR ---
Patient appears to be more disoriented, not knowing where she is and believes that she is being locked into a room. Will take scheduled evening medications but will make sounds and facial grimace after taking them. Dr Brown aware of patients status.
--- NOTE | 2019-08-08 20:27 | PDOC ---
Exam Note: Jay Note: Please also refer to the separate dictated note~for this date of service dictated separately.~Patient seen individually. Discussed the patient with Nursing staff reviewed the chart.~Reviewed interim history and current functioning. Reviewed vital signs,~Labs/ Radiology~and current medications noted below. Continue current treatment with the changes noted in the dictated addendum note Assessment: Vital Signs/I&O: Vital Signs Date Time Temp Pulse Resp B/P (MAP) Pulse Ox O2 Delivery O2 Flow Rate FiO2 08/08/19 15:24 98.1 77 16 137/83 (101) 95 Room Air I & O 08/07/19 08/07/19 08/08/19 15:00 23:00 07:00 Intake Total 300 ml 220 ml 609 ml Output Total 600 ml 723 ml Balance 300 ml -380 ml -114 ml Labs: Laboratory Tests Test 08/08/19 05:48 White Blood Count 9.3 x10^3/uL (4.0-11.0) Red Blood Count 5.02 x10^6/uL (3.50-5.40) Hemoglobin 15.3 g/dL (12.0-15.5) Hematocrit 46.0 % (36.0-47.0) Mean Corpuscular Volume 92 fL (79-100) Mean Corpuscular Hemoglobin 31 pg (25-35) Mean Corpuscular Hemoglobin Concent 33 g/dL (31-37) Red Cell Distribution Width 14.4 % (11.5-14.5) Platelet Count 294 x10^3/uL (140-400) Sodium Level 139 mmol/L (136-145) Potassium Level 4.2 mmol/L (3.5-5.1) Chloride Level 108 mmol/L (98-107) H Carbon Dioxide Level 24 mmol/L (21-32) Anion Gap 7 (6-14) Blood Urea Nitrogen 4 mg/dL (7-20) L Creatinine 0.6 mg/dL (0.6-1.0) Estimated GFR (Cockcroft-Gault) 94.8 BUN/Creatinine Ratio 7 (6-20) Glucose Level 140 mg/dL (70-99) H Calcium Level 7.7 mg/dL (8.5-10.1) L Total Bilirubin 0.2 mg/dL (0.2-1.0) Aspartate Amino Transferase (AST) 19 U/L (15-37) Alanine Aminotransferase (ALT) 11 U/L (14-59) L Alkaline Phosphatase 69 U/L (46-116) Total Protein 4.8 g/dL (6.4-8.2) L Albumin 1.8 g/dL (3.4-5.0) L Albumin/Globulin Ratio 0.6 (1.0-1.7) L Current Medications: I have reviewed the current psychotropics carefully including drug interactions. Risk benefit ratio favors no change other than as noted in my dictated progress note. Diagnosis: Problems: (1) Impulse control disorder (2) Anxiety disorder (3) Major depressive disorder, recurrent episode (4) Urinary tract infection ALEKSANDER REESE MD Aug 08, 2019 20:27
[2019-08-08] MEDS: traZODone 50 MG TABLET. PO SCH (21:13)
[2019-08-08] MEDS: ACETAMINOPHEN 325 MG TABLET PO PRN (21:13)
[2019-08-08] MEDS: MIRTAZAPINE ODT 15 MG TAB.RAPDIS. PO SCH (21:13)
[2019-08-08] MEDS: ENOXAPARIN 40 MG/0.4 ML SYRINGE. SQ SCH (21:13)
--- NOTE | 2019-08-08 21:39 | PN ---
DATE: 08/07/2019 This late entry, 08/07/2019, covers the elements not covered in my initial note. SUBJECTIVE: I met with the patient in the evening. Per nursing report, patient is doing better, but still continues to have a rectal tube and ongoing diarrhea. She gets a little paranoid, irritable, and dismissive. REVIEW OF SYSTEMS: Tiredness. She is lying in bed, complains of ongoing diarrhea. No CV, , or pulmonary system symptoms on review. Reliability poor. MENTAL STATUS EXAM: Oriented to herself and situation. Speech has some latency, coherent. Abstraction fair, computation impaired, language function intact, and attention span short. Mood and affect somewhat withdrawn. She is somewhat paranoid. LABORATORY DATA: Reviewed. IMPRESSION: Unchanged from initial note. PLAN: No change from initial note. MAN Aimee REESE MD DR: ANUP/esther JOB#: [id number] / [id number]
[2019-08-08 22:53] VITALS: BP 105/64
--- NOTE | 2019-08-09 01:08 | PN ---
DATE: 08/08/2019 SUBJECTIVE: The patient is resting slightly propped up in bed, in no apparent distress. She is definitely more awake, alert, has had no more hallucination. She is feeding herself and her stools are becoming formed. She managed to walk with assist of 2. PHYSICAL EXAMINATION: GENERAL: On examining her, she looked pale, but no jaundice, cyanosis or thyromegaly. No jugular venous distention. No limb edema. VITAL SIGNS: Her heart rate was 77, blood pressure was 127/70, temperature was 98.1, respiratory rate was 18 and oxygen saturation was 95%. HEAD, EYES, EARS, NOSE AND THROAT: Normocephalic, atraumatic. NECK: Supple. HEART: Showed normal first and second heart sounds. No gallop or murmur. CHEST: Clear to auscultation. No crepitation or rhonchi. ABDOMEN: Distended, soft, nontender. NEUROLOGIC: She was awake, alert, and responding appropriately. All cranial nerves intact. She moves extremities without difficulty. Her intake over the last 24 hours was 3670, output was 1500. LABORATORY DATA: As of this morning, her lab work showed a serum sodium 139, potassium 4.2, chloride 108, bicarbonate 24, anion gap of 7, BUN 4, creatinine 0.6, estimated GFR was 95 mL per minute. Her glucose 140, calcium was 7.7. Total bilirubin, AST, ALT, alkaline phosphatase were normal. Total protein was 5.8, albumin was 1.8. White cell count was 9300, hemoglobin 15, hematocrit 46, MCV 92, and platelet count 294,000. ASSESSMENT: 1. Sepsis with marked leukocytosis due to Clostridium difficile colitis for which she continues to be on both oral vancomycin and IV Flagyl. 2. Hypokalemia, resolved. She has also multiple other medical problems including: A. Hypertension. B. Mitral valve stenosis. C. Sick sinus syndrome. D. Bronchial asthma. E. Recurrent urinary tract infection. F. She also has impulse control disorder; anxiety disorder, major depressive disorder with recurrent episode. PLAN: To continue with oral IV Flagyl for now. We will have to consult our behavioral health case manager to see whether she can qualify to go back upstairs and will be transferred to another [facility] facility. AUDIE ALCARAZ MD DR: ALYX/esther JOB#: [id number] / [id number]
[2019-08-09] MEDS: POTASSIUM CL 40MEQ D5-0.45NACL 1,000 ML IV SCH ×2 (04:25→21:23)
[2019-08-09 04:54] VITALS: BP 130/76
[2019-08-09] MEDS: VANCOMYCIN 125 MG/2.5 ML ORAL SOLUTION. PO SCH ×4 (10:09→21:00)
[2019-08-09] MEDS: FOLIC ACID 1 MG TABLET PO SCH (10:10)
[2019-08-09] MEDS: ENOXAPARIN 40 MG/0.4 ML SYRINGE. SQ SCH (10:10)
[2019-08-09] MEDS: clonazePAM 0.5 MG TABLET PO SCH ×3 (10:10→21:08)
[2019-08-09] MEDS: LACTOBACILLUS RHAMNOSUS GG 1 CAPSULE. PO SCH ×2 (10:10→21:08)
[2019-08-09] MEDS: THIAMINE 100 MG TABLET. PO SCH (10:10)
[2019-08-09] MEDS: LOSARTAN 50 MG TABLET. PO SCH (10:11)
[2019-08-09] MEDS: amLODIPine BESYLATE 10 MG TABLET PO SCH (10:12)
[2019-08-09] MEDS: MULTIVITAMIN with MINERAL TABLET. PO SCH (10:12)
[2019-08-09] MEDS: POTASSIUM CHLORIDE 20 MEQ TABLET.ER. PO SCH (10:12)
[2019-08-09] MEDS: FLUoxetine HCL 10 MG CAPSULE PO SCH (10:12)
[2019-08-09] MEDS: QUEtiapine 25 MG TABLET. PO SCH ×3 (10:13→21:08)
[2019-08-09 10:51] VITALS: BP 128/56
[2019-08-09 16:14] VITALS: BP 134/72
--- NOTE | 2019-08-09 19:49 | PN ---
DATE: 08/09/2019 SUBJECTIVE: The patient is resting, slightly propped up in bed, in no apparent distress. She is definitely more awake, alert now. She had 2 small bowel movements today. Continue to have some mild abdominal discomfort. She is drinking more, but she is not eating. Her oral fluid intake is still suboptimal. PHYSICAL EXAMINATION: GENERAL: When I examined her, however, she looked pale, no jaundice, cyanosis or thyromegaly. No jugular venous distension. No lower limb edema. VITAL SIGNS: Her heart rate was 72, blood pressure was 128/56, temperature was 97.5, respiratory rate was 18 and oxygen saturation was 96% on room air. HEAD, EYES, EARS, NOSE AND THROAT: Showed normocephalic, atraumatic. NECK: Supple. HEART: Showed normal first and second heart sounds. No gallop or murmur. CHEST: Clear to auscultation. No crepitation or rhonchi. ABDOMEN: Distended, soft, nontender. No guarding or rigidity. No organomegaly. All hernial orifice intact. Bowel sounds normal. NEUROLOGIC: She is confused, probably demented, but without any obvious lateralizing sign. All her cranial nerves intact. She moves extremities without difficulty. She has an indwelling Link catheter. Her intake over the last 24 hours was 1100, output was 1300. LABORATORY DATA: As of this morning, her white cell count was 9300, hemoglobin 15, hematocrit 46, MCV 92, and platelet count 294,000. Her chemistry showed a serum sodium 139, potassium 4.2, chloride 108, bicarbonate 24, anion gap of 7, BUN 4, creatinine 0.6, estimated GFR was 95 mL per minute. Her glucose is 140 and calcium 7.7. Total bilirubin, AST, ALT, alkaline phosphatase were normal. Total protein is 4.8 and albumin 1.6. ASSESSMENT: 1. Sepsis with marked leukocytosis with Clostridium difficile colitis for which she now continues to be on both oral vancomycin and IV Flagyl. 2. Hypokalemia, resolved. 3. She has multiple other medical problems including: A. Hypertension. B. Mitral valve stenosis. C. Sick sinus syndrome. D. Bronchial asthma. E. Recurrent urinary tract infection. F. She also has multiple psychiatric conditions including impulse control disorder; anxiety disorder, major depressive disorder, recurrent episode. PLAN: To continue with IV fluid, continue with IV Flagyl and oral vancomycin. I will repeat her labs tomorrow and hopefully will be able to discontinue her IV fluid and her Link catheter and consider transferring her to a detention facility hopefully tomorrow. AUDIE ALCARAZ MD DR: ALYX/esther JOB#: [id number] / [id number]
[2019-08-09 19:50] VITALS: BP 102/57
--- NOTE | 2019-08-09 20:58 | PDOC ---
Exam Note: Jay Note: Please also refer to the separate dictated note~for this date of service dictated separately.~Patient seen individually. Discussed the patient with Nursing staff reviewed the chart.~Reviewed interim history and current functioning. Reviewed vital signs,~Labs/ Radiology~and current medications noted below. Continue current treatment with the changes noted in the dictated addendum note Assessment: Vital Signs/I&O: Vital Signs Date Time Temp Pulse Resp B/P (MAP) Pulse Ox O2 Delivery O2 Flow Rate FiO2 08/09/19 19:50 98.3 72 18 102/57 (72) 93 Room Air I & O 08/08/19 08/08/19 08/09/19 15:00 23:00 07:00 Intake Total 870 ml 340 ml 120 ml Output Total 250 ml 650 ml Balance 620 ml 340 ml -530 ml Current Medications: I have reviewed the current psychotropics carefully including drug interactions. Risk benefit ratio favors no change other than as noted in my dictated progress note. Diagnosis: Problems: (1) Impulse control disorder (2) Anxiety disorder (3) Major depressive disorder, recurrent episode (4) Urinary tract infection ALEKSANDER REESE MD Aug 09, 2019 20:58
[2019-08-09] MEDS: traZODone 50 MG TABLET. PO SCH (21:08)
[2019-08-09] MEDS: MIRTAZAPINE ODT 15 MG TAB.RAPDIS. PO SCH (21:09)
--- NOTE | 2019-08-09 23:24 | PN ---
DATE: 08/08/2019 PSYCHIATRIC PROGRESS NOTE This late entry 08/08/2019 covers the elements not covered in my initial note. SUBJECTIVE: I met with the patient in the evening of 08/08/2019. Overall, per nursing report, the patient remains somewhat withdrawn, dismissive at times. Somewhat paranoid. REVIEW OF SYSTEMS: Ambulation impaired. No CV, , pulmonary, eye system symptoms on review. Diarrhea is better. MENTAL STATUS EXAM: Oriented to herself and situation. Speech has some latency, often responses monosyllabic. Abstraction fair, computation impaired, language function intact, attention span short. Mood and affect withdrawn. LABORATORY DATA: Reviewed. IMPRESSION: Unchanged from initial note. PLAN: No change from initial note. MAN Aimee REESE MD DR: ANUP/esther JOB#: [id number] / [id number]
[2019-08-10 07:00] VITALS: BP 102/57
[2019-08-10 07:06] LABS: CALCIUM 7.5 mg/dL (8.5-10.1); CREATININE 0.8 mg/dL (0.6-1.0); POTASSIUM 4.2 mmol/L (3.5-5.1)
[2019-08-10] MEDS: LOSARTAN 50 MG TABLET. PO SCH (09:00)
[2019-08-10] MEDS: amLODIPine BESYLATE 10 MG TABLET PO SCH (09:00)
[2019-08-10] MEDS: LACTOBACILLUS RHAMNOSUS GG 1 CAPSULE. PO SCH ×2 (09:34→20:57)
[2019-08-10] MEDS: MULTIVITAMIN with MINERAL TABLET. PO SCH (09:34)
[2019-08-10] MEDS: FLUoxetine HCL 10 MG CAPSULE PO SCH (09:34)
[2019-08-10] MEDS: FOLIC ACID 1 MG TABLET PO SCH (09:35)
[2019-08-10] MEDS: POTASSIUM CHLORIDE 20 MEQ TABLET.ER. PO SCH (09:35)
[2019-08-10] MEDS: VANCOMYCIN 125 MG/2.5 ML ORAL SOLUTION. PO SCH ×4 (09:36→20:56)
[2019-08-10] MEDS: QUEtiapine 25 MG TABLET. PO SCH ×3 (09:36→20:57)
[2019-08-10] MEDS: THIAMINE 100 MG TABLET. PO SCH (09:36)
[2019-08-10] MEDS: clonazePAM 0.5 MG TABLET PO SCH ×3 (09:37→20:57)
[2019-08-10 11:38] VITALS: BP 109/64
--- NOTE | 2019-08-10 12:38 | PN ---
DATE: 08/08/2019 SUBJECTIVE: The patient denies any new neurological complaints. She denies diarrhea, nausea, vomiting or abdominal pain. OBJECTIVE: GENERAL: Well-developed, well-nourished female, not in acute distress. VITAL SIGNS: Blood pressure 111/67, respiratory rate 20, pulse is 83 and regular, oxygen saturation is 93% on room air, and temperature is 97.8. HEENT: Normocephalic, atraumatic, otherwise unremarkable. NECK: Supple. Negative for carotid bruit, lymphadenopathy or thyromegaly. LUNGS: Clear to A and P. CARDIOVASCULAR: Regular rate and rhythm, normal S1, S2. ABDOMEN: Soft. Bowel sounds positive. EXTREMITIES: Negative for cyanosis, clubbing or edema. NEUROLOGICAL EXAM: The patient is alert and oriented x 2. The speech is fluent. There is no language dysfunction. Memory, judgment, and abstract thinking are fair. The patient denies hallucination or delusion. Cranial nerves are intact. No focal motor or sensory deficit. The strength was 4/5 throughout. Deep tendon reflexes were symmetric and hypoactive with absent Achilles responses. Gait not tested. LABORATORY DATA: CBC revealed white blood cells of 9.3 thousand, hemoglobin 15.3, hematocrit 46, platelet count 294,000. Chemistry: Sodium 139, potassium 4.2, chloride 108, CO2 24, BUN 4, creatinine 0.6 and glucose 140. Calcium is 7.7. IMPRESSION: 1. Acute encephalopathy -- improved. 2. Urinary tract infections. 3. Multiple medical problems include hypertension and recovery from Clostridium difficile colitis. 4. Multiple psychotic problems include depression, anxiety and possible bipolar. RECOMMENDATIONS: Continue with current medical and psychiatric care. M Kamlesh MIGUEL MD DR: MARA/esther JOB#: [id number] / [id number]
--- NOTE | 2019-08-10 12:47 | PN ---
DATE: 08/09/2019 SUBJECTIVE: The patient stated she does not feel good; however, she denies headaches, visual disturbances, nausea, vomiting, diarrhea, dysarthria or dysphagia. OBJECTIVE: GENERAL: Well-developed, well-nourished female, not in acute distress. VITAL SIGNS: Blood pressure 130/76, respiratory rate 18, pulse is 76 and regular, temperature 97.5, oxygen saturation 94% on room air. HEENT: Normocephalic, atraumatic, otherwise unremarkable. NECK: Supple. Negative for carotid bruit, lymphadenopathy or thyromegaly. LUNGS: Clear to A and P. CARDIOVASCULAR: Regular rate and rhythm, normal S1, S2. ABDOMEN: Soft. Bowel sounds positive. EXTREMITIES: Negative for cyanosis, clubbing or edema. NEUROLOGICAL EXAM: Mental Status: The patient is alert and oriented x 2. Speech is fluent. There is no language dysfunction. Cranial nerves are intact. No focal motor or sensory deficit. The strength was 4/5 throughout. Sensory examination revealed normal pinprick, light touch senses throughout. Deep tendon reflexes are symmetric and hypoactive with absent Achilles responses. Gait not tested. IMPRESSION: 1. Acute encephalopathy -- improved. 2. Multiple medical problems include urinary tract infections. 3. Hypertension, status post pacemaker placement. 3. Multiple psychiatric problems including derepression and anxiety. RECOMMENDATIONS: Continue with current therapeutic and psychiatric care. The patient is neurologically stable. M Kamlesh MIGUEL MD DR: MARA/esther JOB#: [id number] / [id number]
--- NOTE | 2019-08-10 14:50 | PN ---
DATE: 08/10/2019 SUBJECTIVE: Ms. Morales is resting flat comfortably, in no apparent distress, awake, alert. On questioning her, denied any complaint. Nursing staff reports that she is not eating, but drinking well. Has only one bowel movement. PHYSICAL EXAMINATION: GENERAL: When I examined her, she looked pale. No jaundice, cyanosis. NECK: No thyromegaly, jugular venous distention or limb edema. VITAL SIGNS: Her heart rate was 80, blood pressure was 109/64, temperature was 98.1, respiratory rate was 18 and oxygen saturation was 92%. HEAD, EYES, EARS, NOSE AND THROAT: Normocephalic, atraumatic. NECK: Supple. HEART: Showed normal first and second heart sounds. No gallop or murmur. CHEST: Clear to auscultation. No crepitation or rhonchi. ABDOMEN: Distended, soft, nontender. No guarding or rigidity. No organomegaly. All hernial orifice intact. Bowel sounds normal. NEUROLOGIC: She was awake, alert, though at times confused. All her cranial nerves intact. She moves extremities without difficulty. She ambulates with a walker. Her intake over the last 24 hours was 1300, output was 900. LABORATORY DATA: Her lab work this morning showed a serum sodium 139, potassium 4.2, chloride 107, bicarbonate 24, anion gap of 8, BUN 5, creatinine 0.8. Estimated GFR was 68 mL per minute. Her glucose 144, calcium is 7.5. ASSESSMENT: 1. Sepsis with marked leukocytosis secondary to Clostridium difficile colitis, for which she continues to be on both oral vancomycin and IV Flagyl. 2. Hyperkalemia, resolved. 3. She has multiple other medical problems including: a. Hypertension. b. Mitral valve disease stenosis. c. Sick sinus syndrome. d. Bronchial asthma. e. Recurrent urinary tract infection. f. She also has multiple psychiatric conditions including impulse control disorder; anxiety disorder, major depressive disorder, recurrent episodes. PLAN: My plan is to discontinue her catheter. Continue with IV Flagyl and oral vancomycin. Discontinue her IV fluid and see how does. Repeat her labs tomorrow and decide on placement tomorrow.. AUDIE ALCARAZ MD DR: ALYX/esther JOB#: [id number] / [id number]
[2019-08-10 15:58] VITALS: BP 115/68
[2019-08-10 19:24] VITALS: BP 118/70
--- NOTE | 2019-08-10 20:32 | PDOC ---
Exam Note: Jay Note: Please also refer to the separate dictated note~for this date of service dictated separately.~Patient seen individually. Discussed the patient with Nursing staff reviewed the chart.~Reviewed interim history and current functioning. Reviewed vital signs,~Labs/ Radiology~and current medications noted below. Continue current treatment with the changes noted in the dictated addendum note Assessment: Vital Signs/I&O: Vital Signs Date Time Temp Pulse Resp B/P (MAP) Pulse Ox O2 Delivery O2 Flow Rate FiO2 08/10/19 19:24 97.7 90 20 118/70 (86) 92 Room Air I & O 08/09/19 08/09/19 08/10/19 15:00 23:00 07:00 Intake Total 60 ml 1160 ml Output Total 900 ml 100 ml Balance 60 ml 260 ml -100 ml Labs: Laboratory Tests Test 08/10/19 06:44 Sodium Level 139 mmol/L (136-145) Potassium Level 4.2 mmol/L (3.5-5.1) Chloride Level 107 mmol/L (98-107) Carbon Dioxide Level 24 mmol/L (21-32) Anion Gap 8 (6-14) Blood Urea Nitrogen 5 mg/dL (7-20) L Creatinine 0.8 mg/dL (0.6-1.0) Estimated GFR (Cockcroft-Gault) 68.0 Glucose Level 144 mg/dL (70-99) H Calcium Level 7.5 mg/dL (8.5-10.1) L Current Medications: I have reviewed the current psychotropics carefully including drug interactions. Risk benefit ratio favors no change other than as noted in my dictated progress note. Diagnosis: Problems: (1) Impulse control disorder (2) Anxiety disorder (3) Major depressive disorder, recurrent episode (4) Urinary tract infection ALEKSANDER REESE MD Aug 10, 2019 20:31
[2019-08-10] MEDS: ENOXAPARIN 40 MG/0.4 ML SYRINGE. SQ SCH (20:56)
[2019-08-10] MEDS: MIRTAZAPINE ODT 15 MG TAB.RAPDIS. PO SCH (20:57)
[2019-08-10] MEDS: traZODone 50 MG TABLET. PO SCH (20:57)
--- NOTE | 2019-08-10 21:10 | PN ---
DATE: 08/09/2019 PSYCHIATRIC PROGRESS NOTE This late entry 08/09/2019 covers elements not covered in my initial note. SUBJECTIVE: I met with the patient in the evening. Per nursing report, patient has been less irritable, still withdrawn, but less dismissive. Medically, she is being stabilized for C. diff. REVIEW OF SYSTEMS: Ambulation impaired and was lying in bed. No CV, , pulmonary, eye, ENT system symptoms on review. Reliability varies. MENTAL STATUS EXAM: Oriented to herself. Insight, judgment, recent memory is impaired. Language function intact. Attention span short. Mood and affect withdrawn. LABORATORY DATA: Reviewed. IMPRESSION: Unchanged from initial note. PLAN: No change from initial note. ALEKSANDER REESE MD DR: ANUP/nts JOB#: [id number] / [id number]
[2019-08-10 22:42] VITALS: BP 112/59
--- NOTE | 2019-08-11 01:26 | NUR ---
pt retaining over 500ml of urine today when i bladder scanned her. notified dr. ordered for the pt to be straight cathed. straight cathing the pt was unsuccessful. ordered for a fully to be inserted. fully catheter inserted in one attempt. pt immediatly started urinating. pt is currently asleep in bed.
[2019-08-11 05:24] VITALS: BP 119/69
[2019-08-11 06:43] LABS: HEMATOCRIT 45.9 % (36.0-47.0); HEMOGLOBIN 15.1 g/dL (12.0-15.5); RED BLOOD COUNT 4.97 x10^6/uL (3.50-5.40); RED CELL DISTRIBUTION WIDTH 14.7 % (11.5-14.5); WHITE BLOOD COUNT 10.7 x10^3/uL (4.0-11.0)
[2019-08-11 07:35] LABS: ALBUMIN/GLOBULIN RATIO 0.8 (1.0-1.7); CREATININE 0.8 mg/dL (0.6-1.0); POTASSIUM 4.3 mmol/L (3.5-5.1); TOTAL BILIRUBIN 0.1 mg/dL (0.2-1.0); TOTAL PROTEIN 4.6 g/dL (6.4-8.2)
[2019-08-11] MEDS: LACTOBACILLUS RHAMNOSUS GG 1 CAPSULE. PO SCH ×2 (08:16→20:57)
[2019-08-11] MEDS: clonazePAM 0.5 MG TABLET PO SCH ×3 (08:16→20:56)
[2019-08-11] MEDS: THIAMINE 100 MG TABLET. PO SCH (08:17)
[2019-08-11] MEDS: FLUoxetine HCL 10 MG CAPSULE PO SCH (08:17)
[2019-08-11] MEDS: MULTIVITAMIN with MINERAL TABLET. PO SCH (08:17)
[2019-08-11] MEDS: FOLIC ACID 1 MG TABLET PO SCH (08:17)
[2019-08-11] MEDS: POTASSIUM CHLORIDE 20 MEQ TABLET.ER. PO SCH (08:17)
[2019-08-11] MEDS: LOSARTAN 50 MG TABLET. PO SCH (08:17)
[2019-08-11] MEDS: VANCOMYCIN 125 MG/2.5 ML ORAL SOLUTION. PO SCH ×4 (08:18→20:56)
[2019-08-11] MEDS: QUEtiapine 25 MG TABLET. PO SCH ×3 (08:20→20:57)
[2019-08-11] MEDS: amLODIPine BESYLATE 10 MG TABLET PO SCH (08:22)
[2019-08-11 10:17] VITALS: BP 135/69
--- NOTE | 2019-08-11 10:17 | PN ---
DATE: 08/10/2019 SUBJECTIVE: The patient denies any new medical or neurological complaints. She denies diarrhea, vomiting, hematemesis, hematochezia. According to the nursing staff, the patient still has poor appetite and she had only one bowel movement. OBJECTIVE: GENERAL: Well-developed, well-nourished female, not in acute distress. VITAL SIGNS: Blood pressure 115/68, respiratory rate 18, pulse is 85 and regular, oxygen saturation 94%, temperature is 98.2. HEENT: Normocephalic, atraumatic, otherwise unremarkable. NECK: Supple. Negative for carotid bruit, lymphadenopathy or thyromegaly. LUNGS: Clear to A and P. CARDIOVASCULAR: Regular rate and rhythm, normal S1, S2. There is no S3, S4 or murmur. ABDOMEN: Soft. Bowel sounds positive. EXTREMITIES: Negative for cyanosis, clubbing or pitting edema. NEUROLOGICAL EXAM: The patient is alert and oriented x 2. The speech is slow, but coherent. There are no language dysfunctions. Memory, judgment, and abstract thinking are fair. The patient denies hallucination or delusion. Cranial nerves are intact. No focal motor or sensory deficit. The strength was 4/5 throughout. Sensory examination revealed normal pinprick, light touch, vibratory and position senses. Deep tendon reflexes were symmetric and hypoactive with absent Achilles responses. Gait not tested. IMPRESSION: 1. Acute encephalopathy -- improved. 2. Sepsis. The patient had urinary tract infections and Clostridium difficile colitis -- improved. 3. Multiple psychiatric problems including depressions and anxiety. 4. Status post pacemaker placement for sick sinus syndrome, mitral valve prolapse. RECOMMENDATIONS: Continue with current medical and psychiatric care. The patient is neurologically stable. M Kamlesh MIGUEL MD DR: MARA/esther JOB#: [id number] / [id number]
--- NOTE | 2019-08-11 15:15 | PN ---
DATE: 08/10/2019 PSYCHIATRIC PROGRESS NOTE This late entry 08/10 covers elements not covered in my initial note. SUBJECTIVE: I met with the patient in the evening. Overall, per nursing report, the patient has been less irritable, less labile, less paranoid. She is still a little dismissive, but appears less confused as well. REVIEW OF SYSTEMS: Positive for tiredness. No CV, , pulmonary, eye system symptoms on review. MENTAL STATUS EXAM: Oriented to herself and situation. Speech has some latency, low in rate and rhythm, often responses monosyllabic. Abstraction fair, computation impaired, language function intact. Mood and affect withdrawn. LABORATORY DATA: Reviewed. IMPRESSION: Unchanged from initial note. PLAN: No change from initial note. MAN Aimee REESE MD DR: ANUP/esther JOB#: [id number] / [id number]
--- NOTE | 2019-08-11 18:35 | NUR ---
PT has no behavior today and was compliant with medications. Pt is partially able to verbalize understanding of poc. Dung HARE
--- NOTE | 2019-08-11 19:58 | PDOC ---
Exam Note: Jay Note: Please also refer to the separate dictated note~for this date of service dictated separately.~Patient seen individually. Discussed the patient with Nursing staff reviewed the chart.~Reviewed interim history and current functioning. Reviewed vital signs,~Labs/ Radiology~and current medications noted below. Continue current treatment with the changes noted in the dictated addendum note Assessment: Vital Signs/I&O: Vital Signs Date Time Temp Pulse Resp B/P (MAP) Pulse Ox O2 Delivery O2 Flow Rate FiO2 08/11/19 16:41 98.6 08/11/19 10:17 73 18 135/69 (91) 95 Room Air I & O 08/10/19 08/10/19 08/11/19 14:59 22:59 06:59 Intake Total 60 ml 340 ml 310 ml Output Total 350 ml 500 ml Balance 60 ml -10 ml -190 ml Labs: Laboratory Tests Test 08/11/19 06:27 White Blood Count 10.7 x10^3/uL (4.0-11.0) Red Blood Count 4.97 x10^6/uL (3.50-5.40) Hemoglobin 15.1 g/dL (12.0-15.5) Hematocrit 45.9 % (36.0-47.0) Mean Corpuscular Volume 92 fL (79-100) Mean Corpuscular Hemoglobin 31 pg (25-35) Mean Corpuscular Hemoglobin Concent 33 g/dL (31-37) Red Cell Distribution Width 14.7 % (11.5-14.5) H Platelet Count 304 x10^3/uL (140-400) Sodium Level 140 mmol/L (136-145) Potassium Level 4.3 mmol/L (3.5-5.1) Chloride Level 108 mmol/L (98-107) H Carbon Dioxide Level 22 mmol/L (21-32) Anion Gap 10 (6-14) Blood Urea Nitrogen 7 mg/dL (7-20) Creatinine 0.8 mg/dL (0.6-1.0) Estimated GFR (Cockcroft-Gault) 68.0 BUN/Creatinine Ratio 9 (6-20) Glucose Level 107 mg/dL (70-99) H Calcium Level 8.0 mg/dL (8.5-10.1) L Total Bilirubin 0.1 mg/dL (0.2-1.0) L Aspartate Amino Transferase (AST) 62 U/L (15-37) H Alanine Aminotransferase (ALT) 33 U/L (14-59) Alkaline Phosphatase 64 U/L (46-116) Total Protein 4.6 g/dL (6.4-8.2) L Albumin 2.0 g/dL (3.4-5.0) L Albumin/Globulin Ratio 0.8 (1.0-1.7) L Current Medications: I have reviewed the current psychotropics carefully including drug interactions. Risk benefit ratio favors no change other than as noted in my dictated progress note. Diagnosis: Problems: (1) Impulse control disorder (2) Anxiety disorder (3) Major depressive disorder, recurrent episode (4) Urinary tract infection ALEKSANDER REESE MD Aug 11, 2019 19:58
[2019-08-11 20:45] VITALS: BP 145/67
[2019-08-11] MEDS: ENOXAPARIN 40 MG/0.4 ML SYRINGE. SQ SCH (20:52)
[2019-08-11] MEDS: traZODone 50 MG TABLET. PO SCH (20:57)
[2019-08-11] MEDS: MIRTAZAPINE ODT 15 MG TAB.RAPDIS. PO SCH (21:01)
[2019-08-11 23:24] VITALS: BP 119/66
[2019-08-12 06:16] VITALS: BP 145/69
--- NOTE | 2019-08-12 06:25 | PN ---
DATE: 08/11/2019 SUBJECTIVE: The patient is resting flat, sleeping comfortably, in no apparent respiratory distress. She denied any complaint. She continued to retain urine. We took the catheter out, but she continued to retain and we put the catheter back. Has had no bowel movement today. PHYSICAL EXAMINATION: GENERAL: When I examined her, she was resting flat comfortably in bed, in no apparent distress. No pallor, jaundice, cyanosis or thyromegaly. No jugular venous distention. No limb edema. VITAL SIGNS: Her heart rate was 73, blood pressure was 135/69, temperature was 97.6, respiratory rate was 18 and oxygen saturation was 95%. HEAD, EYES, EARS, NOSE AND THROAT: Showed normocephalic, atraumatic. NECK: Supple. HEART: Showed normal first and second heart sounds. No gallop or murmur. CHEST: Clear to auscultation. No crepitation or rhonchi. ABDOMEN: Distended, soft, nontender. No guarding or rigidity. No organomegaly. All hernial orifices intact. Bowel sounds normal. NEUROLOGIC: She is very confused, but has no evidence of lateralizing sign. All her cranial nerves are intact. She moves extremities without difficulty. She ambulates with a walker with assistance. Her intake was 1200, output was 1000. LABORATORY DATA: As of this morning, her white cell count was 10,000, hemoglobin was 15, hematocrit 45, MCV 92 and platelet count 304,000. Her chemistry showed serum sodium 140, potassium 4.3, chloride 108, bicarbonate 22, anion gap of 10, BUN 7, creatinine 0.8. Estimated GFR was 68 mL per minute. Her glucose was 107, calcium was 8. Total bilirubin, AST, ALT, alkaline phosphatase were normal. Total protein 4.6. Albumin was 2. ASSESSMENT: 1. Severe sepsis with marked leukocytosis secondary to Clostridium difficile colitis for which she continues to be on oral and IV vancomycin. 2. Hypokalemia, resolved. Potassium is normal. 3. Multiple other medical problems including: A. Hypertension. B. Mitral valve stenosis. C. Sick sinus syndrome. D. Bronchial asthma. E. Recurrent urinary tract infection. F. Multiple psychiatric disorders including impulse control disorder, anxiety disorder, major depressive recurrent episode. PLAN: To discontinue IV Flagyl. Continue with oral vancomycin. The patient can be hopefully discharged to a [facility] facility, if she is accepted, tomorrow. AUDIE ALCARAZ MD DR: ALYX/esther JOB#: [id number] / [id number]
[2019-08-12] MEDS: THIAMINE 100 MG TABLET. PO SCH (08:18)
[2019-08-12] MEDS: FLUoxetine HCL 10 MG CAPSULE PO SCH (08:18)
[2019-08-12] MEDS: amLODIPine BESYLATE 10 MG TABLET PO SCH (08:18)
[2019-08-12] MEDS: LACTOBACILLUS RHAMNOSUS GG 1 CAPSULE. PO SCH ×2 (08:18→21:00)
[2019-08-12] MEDS: FOLIC ACID 1 MG TABLET PO SCH (08:18)
[2019-08-12] MEDS: MULTIVITAMIN with MINERAL TABLET. PO SCH (08:19)
[2019-08-12] MEDS: LOSARTAN 50 MG TABLET. PO SCH (08:19)
[2019-08-12] MEDS: POTASSIUM CHLORIDE 20 MEQ TABLET.ER. PO SCH (08:19)
[2019-08-12] MEDS: clonazePAM 0.5 MG TABLET PO SCH ×3 (08:19→21:01)
[2019-08-12] MEDS: QUEtiapine 25 MG TABLET. PO SCH ×3 (08:19→21:01)
--- NOTE | 2019-08-12 08:27 | PN ---
DATE: 08/11/2019 SUBJECTIVE: The patient denies any new medical or neurological complaints. OBJECTIVE: GENERAL: Well-developed, well-nourished female, not in acute distress. VITAL SIGNS: Blood pressure 135/69, respiratory rate 18, pulse is 73, temperature 97.86, and oxygen saturation is at 95% on room air. HEENT: Normocephalic, atraumatic, otherwise unremarkable. NECK: Supple. Negative for carotid bruit, lymphadenopathy or thyromegaly. LUNGS: Clear to A and P. CARDIOVASCULAR: Regular rate and rhythm, normal S1, S2. ABDOMEN: Soft. Bowel sounds positive. EXTREMITIES: Negative for cyanosis, clubbing, or edema. NEUROLOGICAL EXAM: The patient is alert and oriented x 2. Speech is fluent. There is no language dysfunction. Memory, judgment, and abstract thinking are fair. The patient denies hallucination or delusion. Cranial nerves are intact. No focal, motor, or sensory deficit. The strength was 4/5 throughout. Sensory examination revealed normal pinprick, light touch, vibratory, and position senses. Deep tendon reflexes were symmetric and hyperactive with absent Achilles responses. Gait: The patient uses a walker with assistance for ambulation. LABORATORY DATA: CBC revealed white blood cells of 10.7 thousand, hemoglobin 15.1, hematocrit 45.9, and platelet count 304,000. Chemistry revealed sodium of 140, potassium 4.3, chloride 108, CO2 of 22, BUN 7, creatinine 0.8, and glucose 107. IMPRESSION: 1. Acute encephalopathy -- improved. 2. Sepsis, on antibiotics. 3. Depression and anxiety. 4. Status post pacemaker placement for sick sinus syndrome. RECOMMENDATIONS: Continue with current psychiatric and medical care. The patient is neurologically stable. M Kamlesh MIGUEL MD DR: MARA/esther JOB#: [id number] / [id number]
[2019-08-12] MEDS: VANCOMYCIN 125 MG/2.5 ML ORAL SOLUTION. PO SCH ×4 (08:30→21:00)
--- NOTE | 2019-08-12 08:50 | NUR ---
NURSING NOTE PT WAS IN BED THIS AM UPON ASSESSMENT AND MEDICATION ADMINISTRATION. PT WAS A&O TO NAME, , AND DATE. PT WAS RESISTIVE TO MEDICATIONS AT FIRST. AFTER GOING OVER MEDS WITH PT, PT DID TAKE HER MEDICATION WITH ENCOURAGEMENT. PT STATES HER ABD IS BOTHERING HER BUT STATES SHE DOES NOT WANT MEDICATION FOR PAIN. THIS RN ASKED PT IF SHE HAS BEEN HAVING CRAMPING OR DIARRHEA AND PT STATES "I HAVE NEVER HAD DIARRHEA". PT SON CALLED THIS AM AND STATES HE HAD BEEN IN TOUCH WITH [facility], TOLD HIM OUR CASE MANAGEMENT WILL BE WORKING ON THAT TODAY WELL. WILL CONTINUE TO MONITOR. PAYAM ONOFRE.
[2019-08-12] MEDS ORDERED: VANC125C3 PO (12:39)
--- NOTE | 2019-08-12 12:41 | DISCH ---
DISCHARGE ORDERS DISCHARGE DATE: Aug 12, 2019 FINAL DIAGNOSIS c diff colitis CONDITION AT DISCHARGE: Stable Code Status: DNR/DNI SNF STAY <30 DAYS: No POST DISCHARGE ORDERS: ACTIVITY ORDERS: Activity as tolerated DIET AFTER DISCHARGE: Regular TREATMENT/EQUIPMENT ORDERS: ADAPTIVE EQUIPMENT NEEDED: Wheelchair DISCHARGE MEDICATIONS: Home Meds Active Scripts Vancomycin Hcl (VANCOMYCIN HCL) 125 Mg Capsule, 1 CAP PO QID for c diff colitis for 10 Days, #40 CAP 0 Refills Prov:AUDIE ALCARAZ MD 08/12/19 Reported Medications Trazodone Hcl (TRAZODONE HCL) 50 Mg Tablet, 50 MG PO PRN QHS PRN for INSOMNIA, TAB 08/01/19 Trazodone Hcl (TRAZODONE HCL) 50 Mg Tablet, 50 MG PO QHS for insomnia, TAB 08/01/19 Levofloxacin (LEVAQUIN) 500 Mg Tablet, 250 MG PO DAILY06 for antibiotic, TAB 08/01/19 Clonazepam (CLONAZEPAM) 0.5 Mg Tablet, 0.5 MG PO HS for anxiety, TAB 08/01/19 Clonazepam (CLONAZEPAM) 0.5 Mg Tablet, 1 MG PO DAILY@1400 for anxiety, TAB 08/01/19 Quetiapine Fumarate (SEROQUEL) 25 Mg Tablet, 12.5 MG PO BID94 for mood stabilizer, TAB 08/01/19 Quetiapine Fumarate (SEROQUEL) 25 Mg Tablet, 25 MG PO QHS for mood stabilizer, TAB 08/01/19 Potassium Chloride (POTASSIUM CHLORIDE) 20 Meq Tablet.er, 20 MEQ PO DAILY for supplement, TAB 08/01/19 Olanzapine (ZYPREXA) 2.5 Mg Tablet, 2.5 MG PO PRN Q2HR PRN for ANXIETY / AGITATION, TAB 08/01/19 Methyl Salicylate/Menthol (BENGAY GREASELESS CREAM) 57 Gm Cream..g., 1 RENÉ TP PRN QID PRN for MUSCLE PAIN for 10 Days, #57 GM 0 Refills 08/01/19 Magnesium Hydroxide (MILK OF MAGNESIA) 2,400 Mg/10 Ml Oral.susp, 2400 MG PO PRN QHS PRN for CONSTIPATION, LIQUID 08/01/19 Mag Hydrox/Al Hydrox/Simeth (ANTACID ANTI-GAS LIQUID) 355 Ml Oral.susp, 15 ML PO PRN AFTMEALHC PRN for DYSPEPSIA, LIQUID 08/01/19 Lactobacillus Rhamnosus Gg (CULTURELLE) 1 Each Cap.sprink, 1 EACH PO BID for GI health, CAP 08/01/19 Thiamine Hcl (VITAMIN B-1) 100 Mg Tablet, 100 MG PO DAILY for supplement, TAB 07/26/19 Multivitamin With Minerals (DAILY VITAMIN FORMULA-MINERALS) 1 Each Tablet, 1 EACH PO DAILY for supplement, TAB 07/26/19 Mirtazapine (MIRTAZAPINE) 15 Mg Tab.rapdis, 15 MG PO QHS for insomnia, TAB 07/26/19 Losartan Potassium (LOSARTAN POTASSIUM) 100 Mg Tablet, 100 MG PO DAILY for HYP ERTENSION, TAB 07/26/19 Folic Acid (Folic Acid) 0.8 Mg Capsule, 1 MG PO DAILY for supplement, CAP 07/26/19 Fluoxetine Hcl (PROZAC) 10 Mg Capsule, 30 MG PO DAILY for depression, CAP 07/26/19 Docusate Sodium (DOCUSATE SODIUM) 100 Mg Capsule, 100 MG PO BID for constipation, CAP 07/26/19 Clonazepam (CLONAZEPAM) 0.5 Mg Tablet, 0.25 MG PO DAILY for anxiety, TAB 07/26/19 Amlodipine Besylate (AMLODIPINE BESYLATE) 10 Mg Tablet, 10 MG PO DAILY for HTN, TAB 07/26/19 Acetaminophen (ACETAMINOPHEN) 325 Mg Tablet, 650 MG PO PRN Q6HRS PRN for PAIN / TEMP, TAB 07/26/19 AUDIE ALCARAZ MD Aug 12, 2019 12:41
[2019-08-12 14:43] VITALS: BP 94/51
[2019-08-12 19:21] VITALS: BP 104/60
--- NOTE | 2019-08-12 19:59 | PDOC ---
Exam Note: Jay Note: Please also refer to the separate dictated note~for this date of service dictated separately.~Patient seen individually. Discussed the patient with Nursing staff reviewed the chart.~Reviewed interim history and current functioning. Reviewed vital signs,~Labs/ Radiology~and current medications noted below. Continue current treatment with the changes noted in the dictated addendum note Assessment: Vital Signs/I&O: Vital Signs Date Time Temp Pulse Resp B/P (MAP) Pulse Ox O2 Delivery O2 Flow Rate FiO2 08/12/19 19:21 98.1 75 18 104/60 (75) 93 Room Air I & O 08/11/19 08/11/19 08/12/19 15:00 23:00 07:00 Intake Total 420 ml 200 ml 350 ml Output Total 250 ml 550 ml Balance 170 ml 200 ml -200 ml Current Medications: I have reviewed the current psychotropics carefully including drug interactions. Risk benefit ratio favors no change other than as noted in my dictated progress note. Diagnosis: Problems: (1) Impulse control disorder (2) Sepsis (3) Clostridium difficile colitis (4) Anxiety disorder (5) Major depressive disorder, recurrent episode (6) Urinary tract infection ALEKSANDER REESE MD Aug 12, 2019 19:59
[2019-08-12] MEDS: traZODone 50 MG TABLET. PO SCH (21:00)
[2019-08-12] MEDS: MIRTAZAPINE ODT 15 MG TAB.RAPDIS. PO SCH (21:01)
[2019-08-12] MEDS: ENOXAPARIN 40 MG/0.4 ML SYRINGE. SQ SCH (21:02)
--- NOTE | 2019-08-12 23:08 | PN ---
DATE: 08/11/2019 This late entry, 08/11/2019, covers the elements not covered in my initial note. SUBJECTIVE: I met with the patient in the evening. Overall, per nursing report, the patient has been more compliant, less dismissive, and less labile in her mood. REVIEW OF SYSTEMS: Positive for tiredness, lying in bed. No CV, , pulmonary, or eye system symptoms on review. She is more appropriate, as I met with her in the evening. MENTAL STATUS EXAM: Oriented to herself and situation. Speech has some latency, coherent. Abstraction fair, computation impaired, language function intact, and attention span short. Mood and affect are somewhat withdrawn. LABORATORY DATA: Reviewed. IMPRESSION: Unchanged from initial note. PLAN: No change from initial note. MAN Aimee REESE MD DR: ANUP/esther JOB#: [id number] / [id number]
--- NOTE | 2019-08-13 04:03 | PN ---
DATE: 08/12/2019 SUBJECTIVE: The patient is an 84-year-old female patient, who was admitted, transferred from [facility] on account of sepsis and leukocytosis, recurrent bowel movement and was found to have her stool was positive for C. diff colitis. We did start her on oral vancomycin, IV Flagyl together with IV fluid. The patient did very well. In fact, she has not had any bowel movement today so far. She is eating, although her oral intake is suboptimal. She drinks fluid. PHYSICAL EXAMINATION: GENERAL: When I examined her this afternoon, she was resting flat, comfortably in bed, in no apparent respiratory distress, pale, but no jaundice, cyanosis or thyromegaly. No jugular venous distension. No lower limb edema. VITAL SIGNS: Her heart rate was 69, blood pressure 145/69, temperature was 97.9, respiratory rate was 20, and oxygen saturation was 94% on room air. HEAD, EYES, EARS, NOSE AND THROAT: Showed normocephalic, atraumatic. NECK: Supple. HEART: Showed normal first and second heart sounds. No gallop, rub or murmur. CHEST: Clear to auscultation. No crepitation or rhonchi. ABDOMEN: Distended, soft, nontender. NEUROLOGIC: She was awake, alert, responding appropriately. All cranial nerves intact. She moves extremities without difficulty. She is mostly bed bound. She is able to ambulate with a walker with assistance. Her intake over the last 24 hours was 710, output was 850. LABORATORY DATA: As of yesterday, white cell count was 10,700, hemoglobin 15, hematocrit 45, MCV was 92, and platelet count of 304,000. Her chemistry showed a serum sodium 140, potassium 4.3, chloride 108, bicarbonate 22, anion gap of 10, BUN 7, creatinine 0.8, estimated GFR was 68 mL per minute. Her glucose was 107, calcium was 8. Total bilirubin, AST, ALT, alkaline phosphatase were normal. Total protein 4.6, albumin 2. ASSESSMENT: 1. Severe sepsis with marked leukocytosis secondary to Clostridium difficile colitis for which she continues to be on oral vancomycin. We discontinued her intravenous Flagyl. 2. Hypokalemia, resolved. Her potassium is normal. 3. Multiple other medical problems including: A. Hypertension. B. Mitral valve stenosis. C. Sick sinus syndrome. D. Bronchial asthma. E. Recurrent urinary tract infection. F. Multiple psychiatric disorders including impulse control disorder, anxiety and major depressive disorder that is recurrent. PLAN: To continue with oral vancomycin. Continue nutritional support. The plan is for her to be discharged to a nursing home facility tomorrow. AUDIE ALCARAZ MD DR: ALYX/esther JOB#: [id number] / [id number]
[2019-08-13 06:06] VITALS: BP 148/74
[2019-08-13] MEDS: FLUoxetine HCL 10 MG CAPSULE PO SCH (07:47)
[2019-08-13] MEDS: LOSARTAN 50 MG TABLET. PO SCH (07:47)
[2019-08-13] MEDS: amLODIPine BESYLATE 10 MG TABLET PO SCH (07:47)
[2019-08-13] MEDS: LACTOBACILLUS RHAMNOSUS GG 1 CAPSULE. PO SCH (07:47)
[2019-08-13] MEDS: FOLIC ACID 1 MG TABLET PO SCH (07:47)
[2019-08-13] MEDS: VANCOMYCIN 125 MG/2.5 ML ORAL SOLUTION. PO SCH ×2 (07:48→12:18)
[2019-08-13] MEDS: THIAMINE 100 MG TABLET. PO SCH (07:48)
[2019-08-13] MEDS: QUEtiapine 25 MG TABLET. PO SCH (07:48)
[2019-08-13] MEDS: POTASSIUM CHLORIDE 20 MEQ TABLET.ER. PO SCH (07:48)
[2019-08-13] MEDS: MULTIVITAMIN with MINERAL TABLET. PO SCH (07:48)
[2019-08-13] MEDS: clonazePAM 0.5 MG TABLET PO SCH (07:48)
[2019-08-13 10:29] VITALS: BP 123/74
--- NOTE | 2019-08-13 13:38 | NUR ---
NURSING NOTE DISCHARGE PT DISCHARGED TO [facility]IA WHEELCHAIR ACCOMPANIED BY SON. REPORT CALLED TO [facility]. COPY OF CHART FAXED AND HAND COPY SENT WITH SON. PAYAM ONOFRE.
--- NOTE | 2019-08-13 16:12 | PN ---
DATE: 08/12/2019 This late entry, 08/12/2019, covers the elements not covered in my initial note. SUBJECTIVE: I met with the patient in the evening. Per nursing report, the patient is overall doing better, less irritable, more coherent, and less paranoid. Medically, she is stabilizing as well with a tentative discharge for 08/13/2019. REVIEW OF SYSTEMS: Positive for some tiredness. No CV, , pulmonary, or eye system symptoms on review. MENTAL STATUS EXAM: Oriented to herself and situation. Speech has some latency, coherent. Abstraction fair, computation impaired, and language function intact. Mood and affect still withdrawn, but improved. LABORATORY DATA: Reviewed. IMPRESSION: Unchanged from initial note. PLAN: No change from initial note. MAN Aimee REESE MD DR: ANUP/esther JOB#: [id number] / [id number]
== END 2019-08-13 13:40 | DRG 871 ==
LOC: ICU 13:44 → 1 SOUTH 08-05 07:25
PROVIDERS: ADMIT Internal Medicine; ATTEND Internal Medicine
DX: A41.4 Sepsis due to anaerobes (principal); G92 Toxic encephalopathy; A04.72 Enterocolitis due to Clostridium difficile, not specified as recurrent; N39.0 Urinary tract infection, site not specified; F31.64 Bipolar disorder, current episode mixed, severe, with psychotic features; E87.5 Hyperkalemia; E87.6 Hypokalemia; F03.90 Unspecified dementia, unspecified severity, without behavioral disturbance, psychotic disturbance, mood disturbance, and anxiety; F41.9 Anxiety disorder, unspecified; F63.9 Impulse disorder, unspecified; I05.0 Rheumatic mitral stenosis; I05.8 Other rheumatic mitral valve diseases; I10 Essential (primary) hypertension; I49.5 Sick sinus syndrome; J45.909 Unspecified asthma, uncomplicated; R65.20 Severe sepsis without septic shock; Z87.440 Personal history of urinary (tract) infections; Z95.0 Presence of cardiac pacemaker; Z88.8 Allergy status to other drugs, medicaments and biological substances; Z79.899 Other long term (current) drug therapy
CPT/HCPCS: 36415; 71045; 74177; 80048; 80053; 83605; 85025; 85027; 87040; 87493; J1650; J2405; J2543; J3010; J3370; J3490; J7040; J7042; 97530; J7030